=== PATIENT | female | born 1965 | race Caucasian/White ===

== ENCOUNTER 2016-11-16 16:12 | Emergency (ER) | payer MEDICAID ==
[2016-11-16] MEDS ORDERED: Sodium Chloride 0.9% 1,000 ML IV ONE (17:08)
[2016-11-16] MEDS ORDERED: HYDROmorphone 1 mg/mL 1mL Syr IVP STA ×2 (17:09→19:17)
--- NOTE | 2016-11-16 17:16 | ED Physician Chart ---
Chief Complaint/HPI - Patient Information Date Seen:: 11/16/16 Time Seen:: 17:00 Chief Complaint:: abdominal pain History of Present Illness:: The patient developed lower abdominal pain 2 days ago. She vomited twice last time at 1300 today. She had diarrhea 9 times last night. Patient has had more than 30 abdominal surgery including for multiple ovarian cyst, total abdominal hysterectomy, appendectomy, obstruction exploratory laparotomy, 2 surgeries for adhesions. Patient inverted her left ankle 2 days ago. She complains of pain of the lateral aspect of the left ankle. Allergies:: Allergies Allergy/AdvReac Type Severity Reaction Status Date / Time aspirin Allergy Verified 11/16/16 16:34 cephalexin [From Keflex] Allergy Verified 11/16/16 16:34 codeine Allergy Verified 11/16/16 16:34 ketorolac [From Toradol] Allergy Verified 11/16/16 16:34 Vitals:: Vital Signs - 8 hr 11/16/16 16:29 Temp 98.1 F HR 73 RR 16 BP 172/92 O2 Sat % 99 Historian:: Patient Review:: Nurse's Note Reviewed Review of Systems - Review of Systems General/Constitutional: No fever, No chills Skin: No skin lesions Head: No headache Eyes: No loss of vision ENT: No earache Neck: No neck pain Cardio Vascular: No chest pain, No palpitations Pulmonary: No SOB GI: Nausea, Vomiting, Diarrhea Musculoskeletal: Bone or joint pain Endocrine: No polyuria Psychiatric: No prior psych history Hematopoietic: No bruising Allergic/Immuno: No urticaria Neurological: No syncope, No focal symptoms Past Medical History - Past Medical History Past Medical History: HTN, Other (see history of present illness) Family History: Diabetes Melitus Social History: Non Smoker, No Alcohol, Other (patient quit smoking 2 years ago) Surgical History: other Psychiatricy History: None (see history of present illness) Medication: Reviewed Family Medical History - Family Member Father Hx Family Diabetes: Yes Physical Exam - Physical Examination General/Constitutional: Well-developed, well-nourished Other Gen/Cons comments:: Mild distress Head: Atraumatic Eyes: Lids, conjuctiva normal, PERRL Skin: Nl inspection, No rash, No skin lesions, No ecchymosis ENMT: External ears, nose nl, TM canals nl, Nasal exam nl, Lips, teeth, gums nl , Tonsils nl Other ENMT comments:: Full upper and lower dentures Neck: No nuchal rigidity Other Respiratory comments:: Tubular breath sounds and minimal end-inspiratory wheezing. Cardio Vascular: RRR, No murmur, gallop, rubs, NL S1 S2 GI: Normal BS's, No mass/bruits Other GI comments:: Lower abdominal and periumbilical rebound tenderness : No CVA tenderness Extremities: Normal digits & nails Other Extremities comments:: Left ankle: There is tenderness over the anterior and posterior talofibular ligaments and over the calcaneofibular ligament. There is a 1 cm abrasion over the lateral malleolus with minimal surrounding erythema. Neuro/Psych: No focal deficits Labs/Radiology/EKG Results - Lab Results Results: Laboratory Results - last 24 hr 11/16/16 11/16/16 11/16/16 17:17 17:17 17:17 WBC 8.8 RBC 4.07 Hgb 12.9 Hct 38.7 MCV 94.9 MCH 31.6 H MCHC Differential 33.3 RDW 12.1 Plt Count 227 MPV 8.2 Neutrophils % 66.6 Lymphocytes % 25.6 Monocytes % 6.4 Eosinophils % 1.0 Basophils % 0.4 Sodium 140 Potassium 3.2 L Chloride 108 H Carbon Dioxide 24.7 Anion Gap 10.5 BUN 7 Creatinine 0.8 Est GFR ( Amer) > 60.0 Est GFR (Non-Af Amer) > 60.0 BUN/Creatinine Ratio 8.8 Glucose 101 Calcium 9.7 Magnesium 1.8 L Lipase 42 Urine Source CLEAN C Urine Color YELLOW Urine Clarity CLEAR Urine pH 6.0 Ur Specific [place] 1.010 Urine Protein NEGATIVE Urine Glucose (UA) NEGATIVE Urine Ketones NEGATIVE Urine Blood SMALL H Urine Nitrate NEGATIVE Urine Bilirubin NEGATIVE Urine Urobilinogen 0.2 Ur Leukocyte Esterase NEGATIVE Urine RBC 2-5 Urine WBC NONE SEEN Ur Epithelial Cells NONE SEEN Urine Bacteria NONE SEEN - Radiology Results Results: CAT scan of abdomen and pelvis with IV contrast showed no acute disease. Assessment - Assessment General Assessment: At 1920 patient reported no improvement in her pain and she had lower abdominal tenderness. At [address] Sharp who felt the patient should be discharged with a prescription for about 10 [place]. ED Septic Shock - . Is Septic Shock (SBP<90, OR Lactate>4 mmol\L) present?: No - <6hrs of presentation: Vital Signs: Vital Signs - 8 hr 11/16/16 16:29 Temp 98.1 F HR 73 RR 16 BP 172/92 O2 Sat % 99 Reassessment (Disposition) - Reassessment Reassessment Condition:: Improved - Diagnosis Diagnosis:: Abdominal pain; history of multiple abdominal surgeries; hypokalemia - Aftercare/Follow up Instructions Aftercare/Follow-Up Instructions:: Refer to Discharge Instructions Medication Prescribed:: [place] 10/325 #10 to take 1 4 times a day as necessary for pain - Patient Disposition Discharge/Transfer:: Home Condition at Disposition:: Stable, Improved
[2016-11-16 17:26] LABS: % BASOPHILS 0.4 % (0.0-2.0); % LYMPHOCYTES 25.6 % (20.0-50.0); % MONOCYTES 6.4 % (2.0-10.0); % NEUTROPHILS 66.6 % (40.0-80.0); HEMATOCRIT 38.7 % (35.0-45.0); HEMOGLOBIN 12.9 gm/dL (11.7-15.5); MEAN CELL VOLUME 94.9 fl (81-100); MEAN CORPUSCULAR HEMOGLOBIN 31.6 pg (27.0-31.0); MEAN CORPUSCULAR HGB CONC 33.3 pg (28.0-36.0); MEAN PLATELET VOLUME 8.2 fl; NEUTROPHILE ABSOLUTE 5.8 Th/cmm (1.8-8.0); PLATELET COUNT 227 Th/cmm (150-400); RED BLOOD COUNT 4.07 Mil/cmm (3.80-5.10); RED CELL DISTRIBUTION WIDTH 12.1 % (11.5-20.0); WHITE BLOOD COUNT 8.8 Th/cmm (4.8-10.8)
[2016-11-16] MEDS ORDERED: HYDROmorphone 1 mg/mL 1mL Syr ONE ×2 (17:26→19:28)
[2016-11-16 17:43] LABS: ANION GAP 10.5 (7.0-16.0); BUN - UREA NITROGEN 7 mg/dL (7-25); BUN/CREATININE RATIO 8.8; CALCIUM SERUM 9.7 mg/dL (8.6-10.3); CARBON DIOXIDE 24.7 mEq/L (21.0-31.0); CHLORIDE 108 mEq/L (98-107); CREATININE - SERUM 0.8 mg/dL (0.6-1.2); GLUCOSE 101 mg/dL (70-105); LIPASE 42 U/L (11-82); MAGNESIUM 1.8 mg/dL (1.9-2.7); POTASSIUM SERUM 3.2 mEq/L (3.5-5.1); SODIUM SERUM 140 mEq/L (136-145)
[2016-11-16 17:44] LABS: URINE BILIRUBIN NEGATIVE (NEGATIVE); URINE BLOOD SMALL (NEGATIVE); URINE COLOR YELLOW; URINE GLUCOSE (UA) NEGATIVE (NEGATIVE); URINE KETONE NEGATIVE (NEGATIVE); URINE PROTEIN NEGATIVE (NEGATIVE); URINE UROBILINOGEN 0.2 E.U./dL (0.2 - 1.0)
[2016-11-16 17:45] LABS: URINE BACTERIA NONE SEEN /hpf (NONE SEEN); URINE EPITHELIAL CELLS NONE SEEN /lpf (FEW); URINE WBC NONE SEEN /hpf (0-5)
[2016-11-16] MEDS ORDERED: Potassium Chloride Elixir 20 mEq /15 mL UDC GT ONE (19:29)
--- NOTE | 2016-11-17 09:25 | Diagnostic Imaging Report ---
CT scan of the abdomen and pelvis with intravenous contrast History: Pain Total DLP equals 292 CTDI equals 6.6 Following administration of intravenous contrast, axial sections were obtained from the xiphoid process down to the pubic symphysis. Exam of the liver demonstrates a normal size and contour. No focal lesions are seen. The spleen appears normal. No abnormalities are seen in the region of the pancreas. The kidneys appear normal bilaterally. No focal lesions or hydronephrosis. The exam of the pelvis demonstrates preservation of normal fat planes. No abnormal soft tissue masses or abnormal fluid collections. There is metallic density noted in the right pelvis along surgical clips seen in the left pelvis. Impression: 1. No definite acute abnormalities 2. Surgical changes
--- NOTE | 2016-11-17 09:31 | Diagnostic Imaging Report ---
Left ankle (4 views) HISTORY: Pain, trauma No acute bony abnormalities are seen. No fractures identified at this time. Joint spaces are normal. IMPRESSION: No acute bony abnormalities
== END 2016-11-16 20:20 | disposition home or self-care (01) ==
LOC: ER 16:12
DX: R10.30 Lower abdominal pain, unspecified (principal); E87.6 Hypokalemia; I10 Essential (primary) hypertension; Z88.6 Allergy status to analgesic agent; Z88.5 Allergy status to narcotic agent; Z88.8 Allergy status to other drugs, medicaments and biological substances; Z98.890 Other specified postprocedural states; Z90.710 Acquired absence of both cervix and uterus
CPT/HCPCS: 99285; 96374; 96375; 96376; 73610; 74177; 36415; 85025; 81001; 83690; 83735; 80048; J2405; J1170; J7030

== ENCOUNTER 2016-11-18 16:34 | Emergency (ER) | payer MEDICAID ==
--- NOTE | 2016-11-18 17:03 | ED Physician Chart ---
Chief Complaint/HPI - Patient Information Date Seen:: 11/18/16 Time Seen:: 17:01 Chief Complaint:: ABDOMINAL PAIN, CHRONIC History of Present Illness:: This 51-year-old female returns to the emergency department complaining of worsening of her abdominal pain. The pain is diffuse throughout the abdomen and and is nonradiating. She was seen here November 16 and at that time an extensive workup was negative. She had a normal white count with no anemia. Liver and renal function studies were all within normal parameters. Patient had mild hyponatremia which was not clinically significant. A CT scan with IV contrast was done of both the abdomen and pelvis with no significant abnormalities found. Patient was discharged with a prescription for [place] 10/ 325 #10 to be taken for abdominal pain. Patient states that her father doesn't approve of narcotic pain medicines and he tore up the prescription. Patient had nausea this a.m. with 3 episodes of emesis. She's had no episodes of diarrhea. The pain is a 10 over 10 in severity and is made worse by touching and eating. The patient is not helped by taking ibuprofen or Tylenol. Allergies:: Allergies Allergy/AdvReac Type Severity Reaction Status Date / Time aspirin Allergy Verified 11/16/16 16:34 cephalexin [From Keflex] Allergy Verified 11/16/16 16:34 codeine Allergy Verified 11/16/16 16:34 ketorolac [From Toradol] Allergy Verified 11/16/16 16:34 Vitals:: Vital Signs - 8 hr 11/18/16 16:44 Temp 98.7 F HR 90 RR 16 BP 125/97 O2 Sat % 97 Review of Systems - Review of Systems General/Constitutional: No fever, No chills, Weakness, No diaphoresis, No edema Skin: No skin lesions, No rash Head: No headache, Light headed Eyes: No loss of vision, No diplopia ENT: No earache, No sore throat, Other (patient has both upper and lower dental plates.) Neck: No neck pain, No stiffness, No mass noted GI: Nausea, Vomiting, No diarrhea, Pain, Other (no hematemesis or melena.) G/U: No dysuria, No frequency, No hematuria Detasseler: No abnormal vaginal bleed Musculoskeletal: No bone or joint pain, No back pain Hematopoietic: No bruising, No lymphadenopathy Allergic/Immuno: No urticaria, No angioedema Neurological: No syncope, No headache, No seizure, No confusion, No vertigo Past Medical History - Past Medical History Past Medical History: Other (patient claims to have had over 30 surgical events within the abdomen. She is status post hysterectomy which initially was just the uterus. Subsequently the patient had ovarian cysts in both ovaries have been removed.) Social History: Non Smoker, No Alcohol, Employment:: Patient denies illicit drug abuse or addiction. Surgical History: Hysterectomy Psychiatricy History: Depression Family Medical History - Family Member Father Hx Family Cancer: No Hx Family Congestive Heart Failure: No Hx Family Hypertension: No Hx Family Stroke: No Hx Family Diabetes: Yes Hx Family AIDS: No Hx Family HIV: No Hx Family Hepatitis: No Physical Exam - Physical Examination General/Constitutional: Awake, Well-developed, well-nourished, Alert, Non-toxic appearing, Ambulatory Other Gen/Cons comments:: Claims to be in severe distress from her abdominal pain. Head: Atraumatic Eyes: Lids, conjuctiva normal, PERRL, EOMI Other Eyes comments:: Sclerae are nonjaundiced and the patient has no nystagmus. Skin: Nl inspection, No rash, No skin lesions, No ecchymosis, No lymphadenopathy ENMT: External ears, nose nl, Nasal exam nl, Oropharynx nl, Tonsils nl Other ENMT comments:: The patient is edentulous with both upper and lower dental plates. There is adequate hydration of the oral mucosa. Neck: Nontender, No JVD, No nuchal rigidity, No mass Respiratory: Nl effort/Exclusion, No Wheeze/Rhonchi/Rales Cardio Vascular: RRR, No murmur, gallop, rubs, NL S1 S2 Other Cardio Vascular comments:: Adequate pulses in all 4 extremities. GI: No organomegaly, No hernia, No mass/bruits Other GI comments:: The patient's abdomen is not distended. She has well-healed surgical scars none of which are recent. Bowel sounds were normal. The patient is exquisitely tender to light touch in all 4 quadrants of the abdomen. No voluntary guarding with positive rebound to percussion. Liver and spleen were nonpalpable. No abdominal masses noted. Rectal exam was deferred at my discretion. Extremities: No tenderness or effusion, Full ROM, normal strength in all extremities, No edema Neuro/Psych: Alert/oriented, Normal sensory exam, Normal motor strength Other Neuro/Psych comments:: Not ambulated. Misc: Normal back Labs/Radiology/EKG Results - Lab Results Results: No laboratory or radiographic studies were ordered because the patient had a complete set of laboratory and a complete CT scan of the abdomen and pelvis 2 days ago. Assessment - Assessment General Assessment: CASE SUMMARY: This 51-year-old female returns to the emergency department for severe abdominal pain which is chronic and caused by adhesions from multiple prior surgeries. It is suspicious that the patient states her father tore up her prescription for [place]. The patient was treated with 2 mg of Dilaudid IM. Patient will be picked up by her and follow up with Dr. Rdz her primary care physician this coming week. I did not refill her prescription for additional narcotic pain medications because I'm suspicious of drug-seeking behavior. ED Septic Shock - . Is Septic Shock (SBP<90, OR Lactate>4 mmol\L) present?: No - <6hrs of presentation: Vital Signs: Vital Signs - 8 hr 11/18/16 16:44 Temp 98.7 F HR 90 RR 16 BP 125/97 O2 Sat % 97 Reassessment (Disposition) - Reassessment Reassessment Condition:: Improved - Diagnosis Diagnosis:: CHRONIC ABDOMINAL PAIN - Aftercare/Follow up Instructions Aftercare/Follow-Up Instructions:: Counseled pt regarding lab results/diagnosis & need follow up - Patient Disposition Discharge/Transfer:: Home ED Discharge Plan - Patient Disposition Admit/Discharge/Transfer: PT DISCHARGED HOME Condition at Disposition: Improved Instructions: Abdominal Pain, [id number] Additional Instructions: FOLLOW UP WITH YOUR REGULAR DOCTOR IN THE NEXT 1-2 DAYS IF NOT FEELING ANY BETTER. FILL YOUR REGULAR PRESCRIPTIONS BY YOUR REGULAR PCP.
[2016-11-18] MEDS ORDERED: Morphine Sulfate 4 mg/mL 1mL Syr IVP ONE (17:45)
[2016-11-18] MEDS ORDERED: HYDROmorphone 2 mg/mL 1mL Vial IM STA (17:48)
[2016-11-18] MEDS ORDERED: HYDROmorphone 2 mg/mL 1mL Vial ONE (17:51)
== END 2016-11-18 19:33 | disposition home or self-care (01) ==
LOC: ER 16:34
DX: G89.29 Other chronic pain (principal); R10.9 Unspecified abdominal pain; Z90.710 Acquired absence of both cervix and uterus; Z88.6 Allergy status to analgesic agent; Z88.5 Allergy status to narcotic agent; Z88.8 Allergy status to other drugs, medicaments and biological substances
CPT/HCPCS: 99284; 96372 ×2; Q0162; J1170; J1200; Z7502

== ENCOUNTER 2017-01-11 21:52 | Inpatient (IN) | payer MEDICAID ==
--- NOTE | 2017-01-11 22:13 | ED Physician Chart ---
ED Chief Complaint/HPI - Patient Information Date Seen:: 01/11/17 Time Seen:: 22:00 Chief Complaint:: abdominal pain History of Present Illness:: Patient has had suprapubic pain for the last 1 week. She had diarrhea more than 10 times last night and vomited 3 times. Patient's temperature was 102.8 last night. Allergies:: Allergies Allergy/AdvReac Type Severity Reaction Status Date / Time aspirin Allergy Verified 11/16/16 16:34 cephalexin [From Keflex] Allergy Verified 11/16/16 16:34 codeine Allergy Verified 11/16/16 16:34 ketorolac [From Toradol] Allergy Verified 11/16/16 16:34 Historian:: Patient Review:: Nurse's Note Reviewed ED Review of Systems - Review of Systems General/Constitutional: Fever, Chills Skin: No skin lesions Head: No headache Eyes: No loss of vision ENT: No earache Neck: No neck pain Cardio Vascular: No chest pain Pulmonary: No SOB, No cough GI: Nausea, Vomiting, Diarrhea G/U: No dysuria Musculoskeletal: No bone or joint pain Endocrine: No polyuria Psychiatric: No prior psych history Hematopoietic: No bruising, No lymphadenopathy Allergic/Immuno: No urticaria Neurological: No syncope ED Past Medical History - Past Medical History Past Medical History: HTN Family History: Diabetes Melitus Social History: Non Smoker, No Alcohol, Other (patient quit smoking 2-1/2 years ago) Surgical History: Appendectomy, Hysterectomy, other (ovarian cysts) Psychiatricy History: None Medication: Reviewed Family Medical History - Family Member Father Hx Family Cancer: No Hx Family Congestive Heart Failure: No Hx Family Hypertension: No Hx Family Stroke: No Hx Family Diabetes: Yes Hx Family AIDS: No Hx Family HIV: No Hx Family Hepatitis: No ED Physical Exam - Physical Examination General/Constitutional: Well-developed, well-nourished, Alert, No distress Head: Atraumatic Eyes: Lids, conjuctiva normal, PERRL Skin: Nl inspection, No rash, No skin lesions, No ecchymosis ENMT: External ears, nose nl, TM canals nl, Nasal exam nl Other ENMT comments:: Full upper and lower dentures Neck: No nuchal rigidity Respiratory: Nl effort/Exclusion, Clear to Auscultation, No Wheeze/Rhonchi/Rales Cardio Vascular: RRR, No murmur, gallop, rubs GI: No organomegaly, No hernia, Normal BS's, Nondistended, No mass/bruits Other GI comments:: Diffuse tenderness with rebound : No CVA tenderness Extremities: Normal digits & nails Neuro/Psych: Alert/oriented Misc: Normal back ED Labs/Radiology/EKG Results - Lab Results Results: Laboratory Results - last 24 hr 01/11/17 01/11/17 01/11/17 22:05 22:23 22:23 WBC 7.7 RBC 3.94 Hgb 12.5 Hct 36.5 L MCV 92.6 MCH 31.6 H MCHC Differential 34.1 RDW 11.6 Plt Count 318 D MPV 7.6 Neutrophils % 64.3 Lymphocytes % 28.7 Monocytes % 5.5 Eosinophils % 1.3 Basophils % 0.2 Sodium 136 Potassium 3.2 L Chloride 103 Carbon Dioxide 23.9 Anion Gap 12.3 BUN 7 Creatinine 0.7 Est GFR ( Amer) > 60.0 Est GFR (Non-Af Amer) > 60.0 BUN/Creatinine Ratio 10.0 Glucose 94 Calcium 9.7 Total Bilirubin Direct Bilirubin AST ALT Alkaline Phosphatase Total Protein Albumin Globulin Albumin/Globulin Ratio Lipase 45 Urine Source CLEAN C Urine Color YELLOW Urine Clarity SLIGHT CLOUDY Urine pH 6.0 Ur Specific [place] 1.020 Urine Protein NEGATIVE Urine Glucose (UA) NEGATIVE Urine Ketones NEGATIVE Urine Blood SMALL H Urine Nitrate NEGATIVE Urine Bilirubin NEGATIVE Urine Urobilinogen 0.2 Ur Leukocyte Esterase TRACE H Urine RBC 2-5 Urine WBC 2-5 Ur Epithelial Cells MODERATE Urine Bacteria FEW Urine Mucus MODERATE 01/11/17 22:53 WBC RBC Hgb Hct MCV MCH MCHC Differential RDW Plt Count MPV Neutrophils % Lymphocytes % Monocytes % Eosinophils % Basophils % Sodium Potassium Chloride Carbon Dioxide Anion Gap BUN Creatinine Est GFR ( Amer) Est GFR (Non-Af Amer) BUN/Creatinine Ratio Glucose Calcium Total Bilirubin 0.4 Direct Bilirubin 0.05 AST 12 L ALT 9 Alkaline Phosphatase 80 Total Protein 7.3 Albumin 4.2 Globulin 3.1 Albumin/Globulin Ratio 1.4 Lipase Urine Source Urine Color Urine Clarity Urine pH Ur Specific [place] Urine Protein Urine Glucose (UA) Urine Ketones Urine Blood Urine Nitrate Urine Bilirubin Urine Urobilinogen Ur Leukocyte Esterase Urine RBC Urine WBC Ur Epithelial Cells Urine Bacteria Urine Mucus - Radiology Results Results: CT abdomen and pelvis: Dilated gallbladder with possible stone in the common bile duct. Abdominal ultrasound: 6 mm stone in CBD. ED Septic Shock - . Is Septic Shock (SBP<90, OR Lactate>4 mmol\L) present?: No ED Reassessment (Disposition) - Reassessment Reassessment Condition:: Unchanged - Diagnosis Diagnosis:: common bile duct stone - Patient Disposition Admitted to:: Med/Surg Spoke to:: Xuan Pinon Admitting Medical Physician:: Xuan Pinon ED Discharge Plan - Patient Disposition Admit/Discharge/Transfer: Acute Care w/in this hosp
[2017-01-11] MEDS ORDERED: Sodium Chloride 0.9% 1,000 ML IV ONE (22:16)
[2017-01-11] MEDS ORDERED: HYDROmorphone 1 mg/mL 1mL Syr IVP STA ×2 (22:17→23:42)
[2017-01-11] MEDS ORDERED: HYDROmorphone 1 mg/mL 1mL Syr ONE ×2 (22:25→23:41)
[2017-01-11 22:31] LABS: URINE BILIRUBIN NEGATIVE (NEGATIVE); URINE BLOOD SMALL (NEGATIVE); URINE GLUCOSE (UA) NEGATIVE (NEGATIVE); URINE KETONE NEGATIVE (NEGATIVE); URINE PROTEIN NEGATIVE (NEGATIVE); URINE UROBILINOGEN 0.2 E.U./dL (0.2 - 1.0)
[2017-01-11 22:31] LABS: % BASOPHILS 0.2 % (0.0-2.0); % EOSINOPHILS 1.3 % (0.0-5.0); % LYMPHOCYTES 28.7 % (20.0-50.0); % MONOCYTES 5.5 % (2.0-10.0); % NEUTROPHILS 64.3 % (40.0-80.0); HEMATOCRIT 36.5 % (41.0-60); HEMOGLOBIN 12.5 gm/dL (12-16); MEAN CELL VOLUME 92.6 fl (81-100); MEAN CORPUSCULAR HEMOGLOBIN 31.6 pg (27.0-31.0); MEAN CORPUSCULAR HGB CONC 34.1 pg (28.0-36.0); MEAN PLATELET VOLUME 7.6 fl; RED BLOOD COUNT 3.94 Mil/cmm (3.80-5.10); RED CELL DISTRIBUTION WIDTH 11.6 % (11.5-20.0); WHITE BLOOD COUNT 7.7 Th/cmm (4.8-10.8)
[2017-01-11 22:34] LABS: PLATELET COUNT 318 Th/cmm (150-400)
[2017-01-11 22:39] LABS: URINE BACTERIA FEW /hpf (NONE SEEN); URINE COLOR YELLOW; URINE EPITHELIAL CELLS MODERATE /lpf (FEW)
[2017-01-11 22:46] LABS: ANION GAP 12.3 (7.0-16.0); BUN - UREA NITROGEN 7 mg/dL (7-25); CALCIUM SERUM 9.7 mg/dL (8.6-10.3); CARBON DIOXIDE 23.9 mEq/L (21.0-31.0); CHLORIDE 103 mEq/L (98-107); CREATININE - SERUM 0.7 mg/dL (0.6-1.2); GLUCOSE 94 mg/dL (70-105); LIPASE 45 U/L (11-82); POTASSIUM SERUM 3.2 mEq/L (3.5-5.1); SODIUM SERUM 136 mEq/L (136-145)
[2017-01-11 23:23] LABS: ALB/GLOB RATIO 1.4 (1.0-1.8); BILIRUBIN,TOTAL 0.4 mg/dL (0.3-1.0)
[2017-01-11 23:24] LABS: BILIRUBIN,DIRECT 0.05 mg/dL (0.0-0.2)
[2017-01-12] MEDS ORDERED: Ciprofloxacin 200mg Premix PB 200 MG/100 ML BAG IV ONE (02:50)
[2017-01-12] MEDS: HYDROmorphone 1 mg/mL 1mL Syr IVP PRN ×5 (02:55→21:45)
[2017-01-12] MEDS: D5-0.45NS 1,000 ML IV SCH ×2 (03:05→21:48)
[2017-01-12] MEDS: Ciprofloxacin 200mg Premix PB 200 MG/100 ML BAG IV SCH ×2 (03:06→17:08)
[2017-01-12 04:55] VITALS: BP 141/78
[2017-01-12 06:38] LABS: % BASOPHILS 0.1 % (0.0-2.0); % EOSINOPHILS 2.4 % (0.0-5.0); % LYMPHOCYTES 39.4 % (20.0-50.0); % MONOCYTES 8.2 % (2.0-10.0); % NEUTROPHILS 49.9 % (40.0-80.0); HEMOGLOBIN 11.1 gm/dL (12-16); MEAN CELL VOLUME 93.7 fl (81-100); MEAN CORPUSCULAR HEMOGLOBIN 31.7 pg (27.0-31.0); MEAN CORPUSCULAR HGB CONC 33.8 pg (28.0-36.0); MEAN PLATELET VOLUME 7.6 fl; NEUTROPHILE ABSOLUTE 3.2 Th/cmm (1.8-8.0); PLATELET COUNT 301 Th/cmm (150-400); RED CELL DISTRIBUTION WIDTH 11.5 % (11.5-20.0); WHITE BLOOD COUNT 6.5 Th/cmm (4.8-10.8)
[2017-01-12 06:58] LABS: INR 1.08 (0.5-1.4); PROTHROMBIN TIME (TEST) 11.2 SECONDS (9.5-11.5)
[2017-01-12 06:59] LABS: BUN - UREA NITROGEN 6 mg/dL (7-25); BUN/CREATININE RATIO 8.6; CARBON DIOXIDE 26.6 mEq/L (21.0-31.0); CHLORIDE 108 mEq/L (98-107); CREATININE - SERUM 0.7 mg/dL (0.6-1.2); GLUCOSE 89 mg/dL (70-105); POTASSIUM SERUM 3.6 mEq/L (3.5-5.1); SODIUM SERUM 139 mEq/L (136-145)
--- NOTE | 2017-01-12 08:24 | Diagnostic Imaging Report ---
Ultrasound abdomen HISTORY: Abdominal pain COMPARISON: CT abdomen and pelvis performed the same day Technique: Sonography of the abdomen was performed in multiple planes. FINDINGS: The liver demonstrates normal echogenicity with no evidence of focal lesions. The liver measures 14 cm. The gallbladder is distended. There may be a stone within the common bile duct measuring 5 mm. No evidence of gallbladder wall thickening. The common bile duct measures 6 mm. Evaluation of the pancreas is limited due to bowel gas. The right kidney measures 9.9 cm. No evidence of focal lesions or hydronephrosis. The left kidney measures 10 cm No evidence of focal lesions or hydronephrosis. The spleen measures 8.6 cm. IMPRESSION: Distended gallbladder. There is suggestion of a stone within the common bile duct. The common bile duct size at the upper limits of normal measuring 6 mm. Please correlate with the findings. Consider further assessment with MRCP or nuclear medicine HIDA scan.
--- NOTE | 2017-01-12 08:38 | General Progress Note ---
Subjective - Review of Systems Service Date: 01/12/17 Events since last encounter: slow HR in 30s taking 3 heart meds await cardiology eval Objective - Results Result Diagrams: 01/12/17 06:20 01/12/17 06:20 Recent Labs: Laboratory Last Values WBC 6.5 Th/cmm (4.8-10.8) 01/12/17 06:20 RBC 3.50 Mil/cmm (3.80-5.10) L 01/12/17 06:20 Hgb 11.1 gm/dL (12-16) L 01/12/17 06:20 Hct 33.0 % (41.0-60) L 01/12/17 06:20 MCV 93.7 fl (81-100) 01/12/17 06:20 MCH 31.7 pg (27.0-31.0) H 01/12/17 06:20 MCHC Differential 33.8 pg (28.0-36.0) 01/12/17 06:20 RDW 11.5 % (11.5-20.0) 01/12/17 06:20 Plt Count 301 Th/cmm (150-400) 01/12/17 06:20 MPV 7.6 fl 01/12/17 06:20 Neutrophils % 49.9 % (40.0-80.0) 01/12/17 06:20 Lymphocytes % 39.4 % (20.0-50.0) 01/12/17 06:20 Monocytes % 8.2 % (2.0-10.0) 01/12/17 06:20 Eosinophils % 2.4 % (0.0-5.0) 01/12/17 06:20 Basophils % 0.1 % (0.0-2.0) 01/12/17 06:20 PT 11.2 SECONDS (9.5-11.5) 01/12/17 06:20 INR 1.08 (0.5-1.4) 01/12/17 06:20 PTT (Actin FS) 23.3 SECONDS (26.0-38.0) L 01/12/17 06:20 Sodium 139 mEq/L (136-145) 01/12/17 06:20 Potassium 3.6 mEq/L (3.5-5.1) 01/12/17 06:20 Chloride 108 mEq/L (98-107) H 01/12/17 06:20 Carbon Dioxide 26.6 mEq/L (21.0-31.0) 01/12/17 06:20 Anion Gap 8.0 (7.0-16.0) 01/12/17 06:20 BUN 6 mg/dL (7-25) L 01/12/17 06:20 Creatinine 0.7 mg/dL (0.6-1.2) 01/12/17 06:20 Est GFR ( Amer) > 60.0 ml/min (>90) 01/12/17 06:20 Est GFR (Non-Af Amer) > 60.0 ml/min 01/12/17 06:20 BUN/Creatinine Ratio 8.6 01/12/17 06:20 Glucose 89 mg/dL (70-105) 01/12/17 06:20 Calcium 9.0 mg/dL (8.6-10.3) 01/12/17 06:20 Total Bilirubin 0.4 mg/dL (0.3-1.0) 01/11/17 22:53 Direct Bilirubin 0.05 mg/dL (0.0-0.2) 01/11/17 22:53 AST 12 U/L (13-39) L 01/11/17 22:53 ALT 9 U/L (7-52) 01/11/17 22:53 Alkaline Phosphatase 80 U/L (34-104) 01/11/17 22:53 Total Protein 7.3 gm/dL (6.0-8.3) 01/11/17 22:53 Albumin 4.2 gm/dL (3.7-5.3) 01/11/17 22:53 Globulin 3.1 gm/dL 01/11/17 22:53 Albumin/Globulin Ratio 1.4 (1.0-1.8) 01/11/17 22:53 Lipase 12 U/L (11-82) 01/12/17 06:20 Urine Source CLEAN C 01/11/17 22:05 Urine Color YELLOW 01/11/17 22:05 Urine Clarity SLIGHT CLOUDY (CLEAR) 01/11/17 22:05 Urine pH 6.0 (4.6 - 8.0) 01/11/17 22:05 Ur Specific [place] 1.020 (1.005-1.030) 01/11/17 22:05 Urine Protein NEGATIVE mg/dL (NEGATIVE) 01/11/17 22:05 Urine Glucose (UA) NEGATIVE mg/dL (NEGATIVE) 01/11/17 22:05 Urine Ketones NEGATIVE mg/dL (NEGATIVE) 01/11/17 22:05 Urine Blood SMALL (NEGATIVE) H 01/11/17 22:05 Urine Nitrate NEGATIVE (NEGATIVE) 01/11/17 22:05 Urine Bilirubin NEGATIVE (NEGATIVE) 01/11/17 22:05 Urine Urobilinogen 0.2 E.U./dL (0.2 - 1.0) 01/11/17 22:05 Ur Leukocyte Esterase TRACE (NEGATIVE) H 01/11/17 22:05 Urine RBC 2-5 /hpf (0-5) 01/11/17 22:05 Urine WBC 2-5 /hpf (0-5) 01/11/17 22:05 Ur Epithelial Cells MODERATE /lpf (FEW) 01/11/17 22:05 Urine Bacteria FEW /hpf (NONE SEEN) 01/11/17 22:05 Urine Mucus MODERATE /lpf (FEW) 01/11/17 22:05 - Physical Exam Vitals and I&O: Vital Signs Temp 98.7 F 01/12/17 08:00 Pulse 67 01/12/17 08:21 Resp 17 01/12/17 08:00 BP 124/69 01/12/17 08:21 Pulse Ox 95 01/12/17 08:00 Intake & Output 01/11/17 01/12/17 01/12/17 18:59 06:59 18:59 Intake Total 100 Balance 100 Weight (lbs) 49.079 kg Intake: Intake, IV Amount 100 Ciprofloxacin 200mg 100 Premix PB 200 mg In 100 ml @ 100 mls/hr IV Q12H [facility] Rx#:[id number] Other: # Voids 1 # Bowel Movements 0 Active Medications: Current Medications Hydromorphone HCl (Dilaudid) 1 mg IVP Q3HR PRN PRN Reason: Pain (Severe) Stop: 03/13/17 02:09 Last Admin: 01/12/17 05:59 Dose: 1 mg Ciprofloxacin (Cipro 200mg Premix Pb) 200 mg in 100 mls @ 100 mls/hr IV Q12H [facility] Stop: 03/13/17 02:59 Last Infusion: 01/12/17 04:05 Dose: Infused Dextrose/Sodium Chloride (D5-0.45ns) 1,000 mls @ 75 mls/hr IV .[id number] [facility] Stop: 03/13/17 02:29 Last Admin: 01/12/17 03:05 Dose: 75 mls/hr Metoprolol Tartrate (Lopressor) 50 mg PO DAILY [facility] Stop: 03/13/17 08:59 Last Admin: 01/12/17 08:21 Dose: Not Given Ondansetron HCl (Zofran) 4 mg IV Q4HR PRN PRN Reason: Nausea / Vomiting Stop: 03/13/17 02:11 Last Admin: 01/12/17 03:13 Dose: 4 mg
--- NOTE | 2017-01-12 08:41 | Diagnostic Imaging Report ---
CT abdomen and pelvis without intravenous contrast Indication: Abdominal pain Comparison: CT abdomen and pelvis on 11/16/2016 and ultrasound of the abdomen on 01/11/2017, Technique: Axial images were obtained from the lung bases to the bilateral proximal femurs without IV contrast. Coronal reconstructions were made. total DLP: 308, CTDI8.8 FINDINGS: Hypoventilatory and atelectatic changes of the lung bases are seen with minimal consolidative changes of the lung bases. Assessment of the solid organs is limited due to lack of IV contrast. No evidence of focal hepatic lesions. The gallbladder is mildly distended. There is a 8 mm stone in the region of the distal common bile duct. The common bile duct measures up to 7 mm. No focal splenic lesions identified. No discrete focal pancreatic lesions identified. No focal adrenal lesions identified. There is fullness of the bilateral renal collecting systems without evidence of shaji hydronephrosis. No evidence of renal stones. There is a 2 cm linear radiodensity within the right lower quadrant which may represent ingested material within the cecum. Additional surgical clips are also seen within the pelvis. The appendix is not well-visualized. No evidence of free air or free fluid. Moderate atherosclerosis is noted. Mild degenerative changes of the spine are noted. IMPRESSION: Findings suggestive of a 8 mm stone within the distal common bile duct. Please also refer to today's ultrasound for further details. ERCP or MRCP follow-up may also be obtained. Mildly distended gallbladder. Nonspecific fullness of bilateral renal collecting systems without evidence of shaji hydronephrosis. Postsurgical changes of the pelvis. Nonspecific linear radiodensity measuring 2 cm in the region of the cecum. Correlation should be made with patient's clinical findings and possible recent ingestion of a foreign body. No evidence of free fluid or free air. Bibasal atelectatic and consolidative changes. Moderate atherosclerosis.
--- NOTE | 2017-01-12 09:03 | General Progress Note ---
Subjective - Review of Systems Service Date: 01/12/17 Events since last encounter: discussed with Drs. Pinon and Mono dispensal with MRCP and proceed with ERCP at [place] Objective - Results Result Diagrams: 01/12/17 06:20 01/12/17 06:20 Recent Labs: Laboratory Last Values WBC 6.5 Th/cmm (4.8-10.8) 01/12/17 06:20 RBC 3.50 Mil/cmm (3.80-5.10) L 01/12/17 06:20 Hgb 11.1 gm/dL (12-16) L 01/12/17 06:20 Hct 33.0 % (41.0-60) L 01/12/17 06:20 MCV 93.7 fl (81-100) 01/12/17 06:20 MCH 31.7 pg (27.0-31.0) H 01/12/17 06:20 MCHC Differential 33.8 pg (28.0-36.0) 01/12/17 06:20 RDW 11.5 % (11.5-20.0) 01/12/17 06:20 Plt Count 301 Th/cmm (150-400) 01/12/17 06:20 MPV 7.6 fl 01/12/17 06:20 Neutrophils % 49.9 % (40.0-80.0) 01/12/17 06:20 Lymphocytes % 39.4 % (20.0-50.0) 01/12/17 06:20 Monocytes % 8.2 % (2.0-10.0) 01/12/17 06:20 Eosinophils % 2.4 % (0.0-5.0) 01/12/17 06:20 Basophils % 0.1 % (0.0-2.0) 01/12/17 06:20 PT 11.2 SECONDS (9.5-11.5) 01/12/17 06:20 INR 1.08 (0.5-1.4) 01/12/17 06:20 PTT (Actin FS) 23.3 SECONDS (26.0-38.0) L 01/12/17 06:20 Sodium 139 mEq/L (136-145) 01/12/17 06:20 Potassium 3.6 mEq/L (3.5-5.1) 01/12/17 06:20 Chloride 108 mEq/L (98-107) H 01/12/17 06:20 Carbon Dioxide 26.6 mEq/L (21.0-31.0) 01/12/17 06:20 Anion Gap 8.0 (7.0-16.0) 01/12/17 06:20 BUN 6 mg/dL (7-25) L 01/12/17 06:20 Creatinine 0.7 mg/dL (0.6-1.2) 01/12/17 06:20 Est GFR ( Amer) > 60.0 ml/min (>90) 01/12/17 06:20 Est GFR (Non-Af Amer) > 60.0 ml/min 01/12/17 06:20 BUN/Creatinine Ratio 8.6 01/12/17 06:20 Glucose 89 mg/dL (70-105) 01/12/17 06:20 Calcium 9.0 mg/dL (8.6-10.3) 01/12/17 06:20 Total Bilirubin 0.4 mg/dL (0.3-1.0) 01/11/17 22:53 Direct Bilirubin 0.05 mg/dL (0.0-0.2) 01/11/17 22:53 AST 12 U/L (13-39) L 01/11/17 22:53 ALT 9 U/L (7-52) 01/11/17 22:53 Alkaline Phosphatase 80 U/L (34-104) 01/11/17 22:53 Total Protein 7.3 gm/dL (6.0-8.3) 01/11/17 22:53 Albumin 4.2 gm/dL (3.7-5.3) 01/11/17 22:53 Globulin 3.1 gm/dL 01/11/17 22:53 Albumin/Globulin Ratio 1.4 (1.0-1.8) 01/11/17 22:53 Lipase 12 U/L (11-82) 01/12/17 06:20 Urine Source CLEAN C 01/11/17 22:05 Urine Color YELLOW 01/11/17 22:05 Urine Clarity SLIGHT CLOUDY (CLEAR) 01/11/17 22:05 Urine pH 6.0 (4.6 - 8.0) 01/11/17 22:05 Ur Specific [place] 1.020 (1.005-1.030) 01/11/17 22:05 Urine Protein NEGATIVE mg/dL (NEGATIVE) 01/11/17 22:05 Urine Glucose (UA) NEGATIVE mg/dL (NEGATIVE) 01/11/17 22:05 Urine Ketones NEGATIVE mg/dL (NEGATIVE) 01/11/17 22:05 Urine Blood SMALL (NEGATIVE) H 01/11/17 22:05 Urine Nitrate NEGATIVE (NEGATIVE) 01/11/17 22:05 Urine Bilirubin NEGATIVE (NEGATIVE) 01/11/17 22:05 Urine Urobilinogen 0.2 E.U./dL (0.2 - 1.0) 01/11/17 22:05 Ur Leukocyte Esterase TRACE (NEGATIVE) H 01/11/17 22:05 Urine RBC 2-5 /hpf (0-5) 01/11/17 22:05 Urine WBC 2-5 /hpf (0-5) 01/11/17 22:05 Ur Epithelial Cells MODERATE /lpf (FEW) 01/11/17 22:05 Urine Bacteria FEW /hpf (NONE SEEN) 01/11/17 22:05 Urine Mucus MODERATE /lpf (FEW) 01/11/17 22:05 - Physical Exam Vitals and I&O: Vital Signs Temp 98.7 F 01/12/17 08:00 Pulse 67 01/12/17 08:21 Resp 17 01/12/17 08:00 BP 124/69 01/12/17 08:21 Pulse Ox 95 01/12/17 08:00 Intake & Output 01/11/17 01/12/17 01/12/17 18:59 06:59 18:59 Intake Total 100 Balance 100 Weight (lbs) 49.079 kg Intake: Intake, IV Amount 100 Ciprofloxacin 200mg 100 Premix PB 200 mg In 100 ml @ 100 mls/hr IV Q12H [facility] Rx#:[id number] Other: # Voids 1 # Bowel Movements 0 Active Medications: Current Medications Hydromorphone HCl (Dilaudid) 1 mg IVP Q3HR PRN PRN Reason: Pain (Severe) Stop: 03/13/17 02:09 Last Admin: 01/12/17 05:59 Dose: 1 mg Ciprofloxacin (Cipro 200mg Premix Pb) 200 mg in 100 mls @ 100 mls/hr IV Q12H [facility] Stop: 03/13/17 02:59 Last Infusion: 01/12/17 04:05 Dose: Infused Dextrose/Sodium Chloride (D5-0.45ns) 1,000 mls @ 75 mls/hr IV .[id number] [facility] Stop: 03/13/17 02:29 Last Admin: 01/12/17 03:05 Dose: 75 mls/hr Metoprolol Tartrate (Lopressor) 50 mg PO DAILY [facility] Stop: 03/13/17 08:59 Last Admin: 01/12/17 08:21 Dose: Not Given Ondansetron HCl (Zofran) 4 mg IV Q4HR PRN PRN Reason: Nausea / Vomiting Stop: 03/13/17 02:11 Last Admin: 01/12/17 03:13 Dose: 4 mg
--- NOTE | 2017-01-12 09:09 | General Progress Note ---
Objective - Results Result Diagrams: 01/12/17 06:20 01/12/17 06:20 Recent Labs: Laboratory Last Values WBC 6.5 Th/cmm (4.8-10.8) 01/12/17 06:20 RBC 3.50 Mil/cmm (3.80-5.10) L 01/12/17 06:20 Hgb 11.1 gm/dL (12-16) L 01/12/17 06:20 Hct 33.0 % (41.0-60) L 01/12/17 06:20 MCV 93.7 fl (81-100) 01/12/17 06:20 MCH 31.7 pg (27.0-31.0) H 01/12/17 06:20 MCHC Differential 33.8 pg (28.0-36.0) 01/12/17 06:20 RDW 11.5 % (11.5-20.0) 01/12/17 06:20 Plt Count 301 Th/cmm (150-400) 01/12/17 06:20 MPV 7.6 fl 01/12/17 06:20 Neutrophils % 49.9 % (40.0-80.0) 01/12/17 06:20 Lymphocytes % 39.4 % (20.0-50.0) 01/12/17 06:20 Monocytes % 8.2 % (2.0-10.0) 01/12/17 06:20 Eosinophils % 2.4 % (0.0-5.0) 01/12/17 06:20 Basophils % 0.1 % (0.0-2.0) 01/12/17 06:20 PT 11.2 SECONDS (9.5-11.5) 01/12/17 06:20 INR 1.08 (0.5-1.4) 01/12/17 06:20 PTT (Actin FS) 23.3 SECONDS (26.0-38.0) L 01/12/17 06:20 Sodium 139 mEq/L (136-145) 01/12/17 06:20 Potassium 3.6 mEq/L (3.5-5.1) 01/12/17 06:20 Chloride 108 mEq/L (98-107) H 01/12/17 06:20 Carbon Dioxide 26.6 mEq/L (21.0-31.0) 01/12/17 06:20 Anion Gap 8.0 (7.0-16.0) 01/12/17 06:20 BUN 6 mg/dL (7-25) L 01/12/17 06:20 Creatinine 0.7 mg/dL (0.6-1.2) 01/12/17 06:20 Est GFR ( Amer) > 60.0 ml/min (>90) 01/12/17 06:20 Est GFR (Non-Af Amer) > 60.0 ml/min 01/12/17 06:20 BUN/Creatinine Ratio 8.6 01/12/17 06:20 Glucose 89 mg/dL (70-105) 01/12/17 06:20 Calcium 9.0 mg/dL (8.6-10.3) 01/12/17 06:20 Total Bilirubin 0.4 mg/dL (0.3-1.0) 01/11/17 22:53 Direct Bilirubin 0.05 mg/dL (0.0-0.2) 01/11/17 22:53 AST 12 U/L (13-39) L 01/11/17 22:53 ALT 9 U/L (7-52) 01/11/17 22:53 Alkaline Phosphatase 80 U/L (34-104) 01/11/17 22:53 Total Protein 7.3 gm/dL (6.0-8.3) 01/11/17 22:53 Albumin 4.2 gm/dL (3.7-5.3) 01/11/17 22:53 Globulin 3.1 gm/dL 01/11/17 22:53 Albumin/Globulin Ratio 1.4 (1.0-1.8) 01/11/17 22:53 Lipase 12 U/L (11-82) 01/12/17 06:20 Urine Source CLEAN C 01/11/17 22:05 Urine Color YELLOW 01/11/17 22:05 Urine Clarity SLIGHT CLOUDY (CLEAR) 01/11/17 22:05 Urine pH 6.0 (4.6 - 8.0) 01/11/17 22:05 Ur Specific [place] 1.020 (1.005-1.030) 01/11/17 22:05 Urine Protein NEGATIVE mg/dL (NEGATIVE) 01/11/17 22:05 Urine Glucose (UA) NEGATIVE mg/dL (NEGATIVE) 01/11/17 22:05 Urine Ketones NEGATIVE mg/dL (NEGATIVE) 01/11/17 22:05 Urine Blood SMALL (NEGATIVE) H 01/11/17 22:05 Urine Nitrate NEGATIVE (NEGATIVE) 01/11/17 22:05 Urine Bilirubin NEGATIVE (NEGATIVE) 01/11/17 22:05 Urine Urobilinogen 0.2 E.U./dL (0.2 - 1.0) 01/11/17 22:05 Ur Leukocyte Esterase TRACE (NEGATIVE) H 01/11/17 22:05 Urine RBC 2-5 /hpf (0-5) 01/11/17 22:05 Urine WBC 2-5 /hpf (0-5) 01/11/17 22:05 Ur Epithelial Cells MODERATE /lpf (FEW) 01/11/17 22:05 Urine Bacteria FEW /hpf (NONE SEEN) 01/11/17 22:05 Urine Mucus MODERATE /lpf (FEW) 01/11/17 22:05 - Physical Exam Vitals and I&O: Vital Signs Temp 98.7 F 01/12/17 08:00 Pulse 67 01/12/17 08:21 Resp 17 01/12/17 08:00 BP 124/69 01/12/17 08:21 Pulse Ox 95 01/12/17 08:00 Intake & Output 01/11/17 01/12/17 01/12/17 18:59 06:59 18:59 Intake Total 100 Balance 100 Weight (lbs) 49.079 kg Intake: Intake, IV Amount 100 Ciprofloxacin 200mg 100 Premix PB 200 mg In 100 ml @ 100 mls/hr IV Q12H [facility] Rx#:[id number] Other: # Voids 1 # Bowel Movements 0 Active Medications: Current Medications Hydromorphone HCl (Dilaudid) 1 mg IVP Q3HR PRN PRN Reason: Pain (Severe) Stop: 03/13/17 02:09 Last Admin: 01/12/17 05:59 Dose: 1 mg Ciprofloxacin (Cipro 200mg Premix Pb) 200 mg in 100 mls @ 100 mls/hr IV Q12H [facility] Stop: 03/13/17 02:59 Last Infusion: 01/12/17 04:05 Dose: Infused Dextrose/Sodium Chloride (D5-0.45ns) 1,000 mls @ 75 mls/hr IV .[id number] [facility] Stop: 03/13/17 02:29 Last Admin: 01/12/17 03:05 Dose: 75 mls/hr Metoprolol Tartrate (Lopressor) 50 mg PO DAILY [facility] Stop: 03/13/17 08:59 Last Admin: 01/12/17 08:21 Dose: Not Given Ondansetron HCl (Zofran) 4 mg IV Q4HR PRN PRN Reason: Nausea / Vomiting Stop: 03/13/17 02:11 Last Admin: 01/12/17 03:13 Dose: 4 mg
--- NOTE | 2017-01-12 10:58 | History & Physical ---
ADMIT DATE: 01/12/2017 CHIEF COMPLAINT: Abdominal pain x 1 week. HISTORY OF PRESENT ILLNESS: This is a 51-year-old female with history of hypertension, who presented to the ER with a 1-week history of abdominal pain, more localized epigastrically and suprapubically associated with nausea, vomiting x 3 episodes with greenish-yellow emesis, multiple bouts of diarrhea about 10 per day, and fevers up to 102.8. She denies any similar previous episodes. On further questioning, the patient states that the pain gets worsen with p.o. intake. She denies any unusual p.o. intake or any recent traveling. PERTINENT FINDINGS ON ADMISSION: Include an abdominal ultrasound, which showed distended occult bladder with suggestion of a stone within the common bile duct. She also had a CT of the pelvis and abdomen suggestive of an 8 mm stone within the distal common bile duct. There is a mildly distended gallbladder. There is nonspecific fullness of the bilateral renal collecting systems without evidence of shaji hydronephrosis. There are also postsurgical changes in the pelvis. There is a nonspecific renal density measuring 2 cm in the region of cecum. There is no evidence of free fluid or free air. There are bibasilar atelectatic and consolidative changes and moderate atherosclerosis. The patient has been admitted to the medical floor for further management and care. PAST MEDICAL HISTORY: Hypertension. PAST SURGICAL HISTORY: She had a hysterectomy roughly about 1989 after his son was born. FAMILY HISTORY: Her mother approximately age 46 possibly secondary to a heart attack. Her father is borderline diabetic. He is obese. SOCIAL HISTORY: Alcohol, very, very seldomly. She is a former smoker, [id number], quit about 2-1/2 years ago and she lives at home with family. ALLERGIES: ASPIRIN, CEPHALEXIN, CODEINE, AND KETOROLAC. OUTPATIENT MEDICATIONS: Metoprolol 50 every day REVIEW OF SYSTEMS: CONSTITUTIONAL: Poor p.o. intake for the last week, fevers as noted above. CARDIAC: No chest pain or palpitations. PULMONARY: No cough or phlegm production. GASTROINTESTINAL: Nausea, vomiting as noted above. Diarrhea and abdominal pain as noted above. GENITOURINARY: Denies any UTI symptomatology. No dysuria or hematuria noted. NEUROLOGIC: No changes in vision. PHYSICAL EXAMINATION: VITAL SIGNS: Temperature 98.7, pulse 67, respirations 17, BP 124/69, satting 95% on room air. GENERAL: She is awake. She is a well-nourished, thin female, who looks somewhat uncomfortable secondary to pain. She is not in acute distress. HEAD AND NECK: Normocephalic, atraumatic. Pupils reactive to light. Extraocular movements are intact. Oropharynx is clear with dry mucous membranes. CARDIOVASCULAR: Regular rate and rhythm without any murmurs. LUNGS: Clear to auscultation, decreased at the bases. ABDOMEN: Soft, supple, flat with tenderness to palpation on the epigastric and periumbilical area. There are no peritoneal signs. There is no rebound. Currently hypoactive bowel sounds. LOWER EXTREMITIES: No edema. LABORATORY DATA: On admission, white count 7.7, H and H 12/36, and platelet count of 318. Sodium 136, potassium 3.2, chloride 103, carbon dioxide 23, BUN 7, creatinine 0.7, glucose 94, AST 12, ALT 9, alk phos 80, albumin 4.2, lipase 45. UA shows small blood, trace leuk esterase, 2-5 rbc's and 2-5 wbc's, few bacteria. DIAGNOSTICS: Please refer to the HPI. ASSESSMENT: 1. Acute cholecystitis with a common bile duct stone. 2. Urinary tract infection. 3. Bibasilar atelectasis, likely secondary to #1. 4. Atherosclerosis. 5. History of essential hypertension. 6. History of multiple drug allergies. PLAN: The patient has been admitted to the medical/surgical floor. She has been placed on IV fluids and is currently n.p.o. She has been started on Cipro 200 mg IV q. 12 and has been placed on pain management and also Zofran p.r.n. I have asked for a GI as well as a surgical eval for further management and care, possible ERCP. [facility]# [id number] MANUEL
--- NOTE | 2017-01-12 11:32 | Consultation ---
DATE OF CONSULTATION: 01/12/2017 SURGICAL CONSULTATION REFERRING PHYSICIAN: Dr. Pinon. REASON FOR CONSULTATION: Abdominal pain. Thank you for referring this patient to me. HISTORY OF PRESENT ILLNESS: This is a 51-year-old female who comes in because of abdominal pain for about a week. She claims pain in the upper abdomen and vomiting and diarrhea was present as well as fevers and chills. The laboratory studies show the CBC to be normal, chemistry, liver function tests are normal. Urinalysis is also normal. She underwent CT scan of the abdomen, which showed findings consistent with markedly distended gallbladder with 8 mm stone in the common duct. The ultrasound also showed distended gallbladder and suggestion of stone in the common duct. PAST MEDICAL HISTORY: Includes hysterectomy, ovarian_ cyst removal, appendectomy and adhesions. The patient apparently takes quite a bit of pain medication over the years. PHYSICAL EXAMINATION: Confirmed scars from previous surgeries. Tenderness in the upper abdomen is difficult to assess as the patient appears to be chronic drug user. PLAN: In view of the common duct stones visible on CT and ultrasound, this was discussed with Dr. Villareal and MRCP is likely not necessary and will proceed with ERCP. We will follow with you. JOB# [id number] MANUEL
--- NOTE | 2017-01-12 12:27 | Consultation ---
DATE OF CONSULTATION: 01/12/2017 INPATIENT CONSULTATION NOTE REFERRING PHYSICIAN: Dr. Pinon. REASON FOR CONSULTATION: Gallstones. HISTORY OF PRESENT ILLNESS: This is a 51-year-old female who has been having suprapubic pain radiating to her epigastric area for approximately one week. She also has associated diarrhea and has nausea and vomiting. She also endorsed some pain radiating to her back along with some fevers. PAST MEDICAL HISTORY: Hypertension. PAST SURGICAL HISTORY: Appendectomy, hysterectomy, ovarian cyst, abdominal scar, adhesiolysis. FAMILY HISTORY: Negative for stomach or colon cancer. SOCIAL HISTORY: She was a former smoker. No alcohol or IV drug usage. ALLERGIES: ASPIRIN, KEFLEX, CODEINE, KETOROLAC. CURRENT MEDICATIONS: Cipro, Dilaudid, Lopressor, Zofran. REVIEW OF SYSTEMS: A 10-point review of system was performed and the pertinent positive was the abdominal pain, fever, diarrhea, nausea and vomiting. All other systems were otherwise negative. PHYSICAL EXAMINATION: VITAL SIGNS: Temperature 98.7, breathing 17, pulse of 67, blood pressure 110/69, satting 95%. GENERAL: In no apparent distress. Eyes are anicteric. Normal conjunctivae. HEENT: Normocephalic, atraumatic. Moist mucous membranes. NECK: Soft, supple. CHEST: Clear. No effort. CARDIOVASCULAR: Regular rate and rhythm. ABDOMEN: Soft, nondistended. Tender abdomen. No rebound or guarding. SKIN: Warm, dry. EXTREMITIES: Reveal no cyanosis. PSYCHOLOGIC: Alert and oriented x 3. LABORATORY DATA: Show white count 6.5, hemoglobin 11.1, platelets of 301. INR is 1.08, total bilirubin 0.4, AST 12, ALT 9, alkaline phosphatase 80, lipase 12. Leukocyte esterase was positive. CT of the abdomen and pelvis suggested 8 mm stone within the distal common bile duct, mildly distended gallbladder, linear density in the region of the cecum. Abdominal ultrasound showed a distended gallbladder suggesting the stone within the common bile duct. IMPRESSION: A 51-year-old female with multiple symptoms. The patient has nausea, vomiting and diarrhea and abdominal pain, cause could be due to colitis. However, CT scan did not show, but there is possibly of foreign object in her cecum. Colonoscopy may be able to ascertain the identity of this object. Serial imaging can also follow the progress of this object to see if it travels down the colon and endoscopy could potentially determine if there are any problems with the stomach. However, the nausea and vomiting could also be related to gallstone disease and the imaging seemed to suggest that it may be the possibility of a common bile duct stone. However, the liver function tests are all within normal limits as well as the lipase making pancreatitis less likely as well. Imaging of the gallbladder by way of HIDA scan and MRI can also be helpful too. The patient in the meantime should be treated for her UTI. RECOMMENDATIONS AND PLAN: 1. Check HIDA scan. 2. Check MRCP. 3. Consider colonoscopy versus another KUB to see if the foreign object travels down out of her colon. Thank you for allowing me to participate. Please call me if any questions. Also, we will check stool studies. JOB# [id number]
--- NOTE | 2017-01-12 13:29 | Diagnostic Imaging Report ---
MRCP History: Common bile duct stone Comparison: Ultrasound and CT abdomen and pelvis on 01/11/2017 Technique/procedure: Inclusion Special Educator images demonstrate susceptibility artifact along the right lower quadrant. This corresponds to ingested foreign body seen along the right cecal region described on CT examination on 01/11/2017. As a result MRI cannot be performed safely at this time until eventual passage of the radiopaque foreign body. Short-term follow-up repeat KUBs may be obtained to ensure passage of the foreign body prior to MRI examination.
--- NOTE | 2017-01-12 13:53 | Diagnostic Imaging Report ---
Nuclear medicine HIDA scan HISTORY: Pain, assess for possible cholecystitis COMPARISON: Abdominal ultrasound and CT abdomen and pelvis on 01/11/2017 Technique/procedure: 4.9 mCi of technetium labeled Choletec was administered intravenously and multiple scintigraphic images were obtained for up to 1 hour. FINDINGS: Prompt hepatic uptake is demonstrated. No evidence of gallbladder uptake after 60 minutes. Small bowel uptake was demonstrated within the first half hour. There is majority of excretion of the radiotracer from the liver at one hour. IMPRESSION: No evidence of gallbladder uptake at 60 minutes. Note that acute or chronic cholecystitis cannot be excluded. Clinical correlation is recommended.
[2017-01-12] MEDS ORDERED: Probiotic Screen MC PRN (14:21)
--- NOTE | 2017-01-12 20:38 | History & Physical ---
ADMIT DATE: 01/12/2017 IDENTIFYING DATA: The patient is a 51-year-old woman living by herself, information obtained by directly interviewing the patient as well as reviewing the admission papers and they are reliable. JUSTIFICATION OF HOSPITALIZATION: The patient is admitted for an acute abdominal pain and the patient is reported being worked up for cholecystitis. Psychiatric consultation is called to address the issue of the depression. Chart is reviewed. The patient is interviewed and the patient has been able to give the information incoherent. The patient is stating that she never had any psychiatric treatment but has been seeing a therapist and just started to see a therapist. The therapist suggested she needs to get some Xanax. The patient is reporting that she has sustained a loss of her grandson 12 years ago. From then on, she had been experiencing depression but has been trying to deal with it. The patient's sleep and appetite prior to the hospitalization are reported to be fair. PAST PSYCHIATRIC HISTORY: None. MEDICAL HISTORY: The patient is being admitted for acute cholecystitis. SUBSTANCE ABUSE HISTORY: None. PHYSICAL OR SEXUAL ABUSE HISTORY: The patient is not giving much of information. LEGAL PROBLEMS: None at this time. STRENGTHS AND ASSETS: The patient is motivated. MENTAL EXAMINATION: The patient is a 51-year-old, looking her stated age, cooperative. Eye contact is fair. Mood is noted to be anxious. Affect is constricted. The patient is stating that she has been in pain. The patient is stating that she has been having difficult time to deal with the pain, but she states that she is trying to cope with it. The patient is not presenting with any auditory hallucinations or delusions noted. Insight and judgment are noted to be more fair. Impulse control is also noted to be fair. The patient is motivated to seek treatment. DIAGNOSTIC IMPRESSION: Adjustment disorder, depressed with anxiety symptoms. PLAN: To continue the patient with the supportive therapy and followup. Please note that there is no need any acute psychiatric medication intervention at this time. JOB# [id number]
[2017-01-12 22:12] LABS: AMPHETAMINE URINE NEGATIVE (NEGATIVE); BARBITURATES URINE NEGATIVE (NEGATIVE); METHADONE URINE NEGATIVE (NEGATIVE)
[2017-01-13] MEDS: HYDROmorphone 1 mg/mL 1mL Syr IVP PRN ×4 (00:59→13:40)
[2017-01-13] MEDS: Ciprofloxacin 200mg Premix PB 200 MG/100 ML BAG IV SCH ×2 (02:28→14:33)
[2017-01-13 06:45] LABS: ALB/GLOB RATIO 1.5 (1.0-1.8); ALKALINE PHOSPHATASE 71 U/L (34-104); BILIRUBIN,TOTAL 0.3 mg/dL (0.3-1.0); BUN - UREA NITROGEN 4 mg/dL (7-25); CALCIUM SERUM 9.2 mg/dL (8.6-10.3); CARBON DIOXIDE 25.7 mEq/L (21.0-31.0); CHLORIDE 104 mEq/L (98-107); CREATININE - SERUM 0.8 mg/dL (0.6-1.2); GLUCOSE 104 mg/dL (70-105); POTASSIUM SERUM 3.7 mEq/L (3.5-5.1); SGOT 12 U/L (13-39); SGPT/ALT 7 U/L (7-52); SODIUM SERUM 135 mEq/L (136-145)
[2017-01-13 08:04] LABS: % BASOPHILS 0.3 % (0.0-2.0); % EOSINOPHILS 6.4 % (0.0-5.0); % LYMPHOCYTES 40.5 % (20.0-50.0); % NEUTROPHILS 43.8 % (40.0-80.0); HEMATOCRIT 33.9 % (41.0-60); HEMOGLOBIN 11.4 gm/dL (12-16); MEAN CELL VOLUME 92.4 fl (81-100); MEAN CORPUSCULAR HEMOGLOBIN 31.2 pg (27.0-31.0); MEAN CORPUSCULAR HGB CONC 33.8 pg (28.0-36.0); MEAN PLATELET VOLUME 7.7 fl; NEUTROPHILE ABSOLUTE 2.7 Th/cmm (1.8-8.0); PLATELET COUNT 274 Th/cmm (150-400); RED BLOOD COUNT 3.67 Mil/cmm (3.80-5.10); RED CELL DISTRIBUTION WIDTH 11.9 % (11.5-20.0); WHITE BLOOD COUNT 6.2 Th/cmm (4.8-10.8)
--- NOTE | 2017-01-13 09:14 | Diagnostic Imaging Report ---
KUB single view HISTORY: Foreign object in cecum COMPARISON: CT abdomen and pelvis 01/11/2017 FINDINGS: 1.8 cm foreign body is again noted in the region of the cecum. Postsurgical changes of pelvis are noted. Gas-filled loops of bowel are noted in the nonspecific pattern. No evidence of gross free air. IMPRESSION: Relatively unchanged appearance of 1.8 cm foreign body in the region of the cecum likely a swallowed foreign body when compared to previous CT examination. Overall nonspecific bowel gas pattern.
--- NOTE | 2017-01-13 10:38 | General Progress Note ---
Subjective - Review of Systems Service Date: 01/13/17 Events since last encounter: atrial lead displaced, will reposition, discussed with daughter Objective - Results Result Diagrams: 01/13/17 07:40 01/13/17 05:57 Recent Labs: Laboratory Last Values WBC 6.2 Th/cmm (4.8-10.8) 01/13/17 07:40 RBC 3.67 Mil/cmm (3.80-5.10) L 01/13/17 07:40 Hgb 11.4 gm/dL (12-16) L 01/13/17 07:40 Hct 33.9 % (41.0-60) L 01/13/17 07:40 MCV 92.4 fl (81-100) 01/13/17 07:40 MCH 31.2 pg (27.0-31.0) H 01/13/17 07:40 MCHC Differential 33.8 pg (28.0-36.0) 01/13/17 07:40 RDW 11.9 % (11.5-20.0) 01/13/17 07:40 Plt Count 274 Th/cmm (150-400) 01/13/17 07:40 MPV 7.7 fl 01/13/17 07:40 Neutrophils % 43.8 % (40.0-80.0) 01/13/17 07:40 Lymphocytes % 40.5 % (20.0-50.0) 01/13/17 07:40 Monocytes % 9.0 % (2.0-10.0) 01/13/17 07:40 Eosinophils % 6.4 % (0.0-5.0) H 01/13/17 07:40 Basophils % 0.3 % (0.0-2.0) 01/13/17 07:40 PT 11.2 SECONDS (9.5-11.5) 01/12/17 06:20 INR 1.08 (0.5-1.4) 01/12/17 06:20 PTT (Actin FS) 23.3 SECONDS (26.0-38.0) L 01/12/17 06:20 Sodium 135 mEq/L (136-145) L 01/13/17 05:57 Potassium 3.7 mEq/L (3.5-5.1) 01/13/17 05:57 Chloride 104 mEq/L (98-107) 01/13/17 05:57 Carbon Dioxide 25.7 mEq/L (21.0-31.0) 01/13/17 05:57 Anion Gap 9.0 (7.0-16.0) 01/13/17 05:57 BUN 4 mg/dL (7-25) L 01/13/17 05:57 Creatinine 0.8 mg/dL (0.6-1.2) 01/13/17 05:57 Est GFR ( Amer) > 60.0 ml/min (>90) 01/13/17 05:57 Est GFR (Non-Af Amer) > 60.0 ml/min 01/13/17 05:57 BUN/Creatinine Ratio 5.0 01/13/17 05:57 Glucose 104 mg/dL (70-105) 01/13/17 05:57 Calcium 9.2 mg/dL (8.6-10.3) 01/13/17 05:57 Magnesium 1.8 mg/dL (1.9-2.7) L 01/13/17 05:57 Total Bilirubin 0.3 mg/dL (0.3-1.0) 01/13/17 05:57 Direct Bilirubin 0.05 mg/dL (0.0-0.2) 01/11/17 22:53 AST 12 U/L (13-39) L 01/13/17 05:57 ALT 7 U/L (7-52) 01/13/17 05:57 Alkaline Phosphatase 71 U/L (34-104) 01/13/17 05:57 Total Protein 6.3 gm/dL (6.0-8.3) 01/13/17 05:57 Albumin 3.8 gm/dL (3.7-5.3) 01/13/17 05:57 Globulin 2.5 gm/dL 01/13/17 05:57 Albumin/Globulin Ratio 1.5 (1.0-1.8) 01/13/17 05:57 Lipase 12 U/L (11-82) 01/12/17 06:20 Urine Source CLEAN C 01/11/17 22:05 Urine Color YELLOW 01/11/17 22:05 Urine Clarity SLIGHT CLOUDY (CLEAR) 01/11/17 22:05 Urine pH 6.0 (4.6 - 8.0) 01/11/17 22:05 Ur Specific [place] 1.020 (1.005-1.030) 01/11/17 22:05 Urine Protein NEGATIVE mg/dL (NEGATIVE) 01/11/17 22:05 Urine Glucose (UA) NEGATIVE mg/dL (NEGATIVE) 01/11/17 22:05 Urine Ketones NEGATIVE mg/dL (NEGATIVE) 01/11/17 22:05 Urine Blood SMALL (NEGATIVE) H 01/11/17 22:05 Urine Nitrate NEGATIVE (NEGATIVE) 01/11/17 22:05 Urine Bilirubin NEGATIVE (NEGATIVE) 01/11/17 22:05 Urine Urobilinogen 0.2 E.U./dL (0.2 - 1.0) 01/11/17 22:05 Ur Leukocyte Esterase TRACE (NEGATIVE) H 01/11/17 22:05 Urine RBC 2-5 /hpf (0-5) 01/11/17 22:05 Urine WBC 2-5 /hpf (0-5) 01/11/17 22:05 Ur Epithelial Cells MODERATE /lpf (FEW) 01/11/17 22:05 Urine Bacteria FEW /hpf (NONE SEEN) 01/11/17 22:05 Urine Mucus MODERATE /lpf (FEW) 01/11/17 22:05 Urine Opiates Screen POSITIVE (NEGATIVE) H 01/12/17 21:45 Urine Methadone Screen NEGATIVE (NEGATIVE) 01/12/17 21:45 Ur Barbiturates Screen NEGATIVE (NEGATIVE) 01/12/17 21:45 Ur Tricyclics Screen NEGATIVE (NEGATIVE) 01/12/17 21:45 Ur Phencyclidine Scrn NEGATIVE (NEGATIVE) 01/12/17 21:45 Amphetamines Screen NEGATIVE (NEGATIVE) 01/12/17 21:45 U Methamphetamines Scrn NEGATIVE (NEGATIVE) 01/12/17 21:45 U Benzodiazepines Scrn POSITIVE (NEGATIVE) H 01/12/17 21:45 U Cocaine Metab Screen NEGATIVE (NEGATIVE) 01/12/17 21:45 U Cannabinoids Screen NEGATIVE (NEGATIVE) 01/12/17 21:45 - Physical Exam Vitals and I&O: Vital Signs Temp 98.5 F 01/13/17 08:00 Pulse 72 01/13/17 08:00 Resp 20 01/13/17 08:00 BP 128/68 01/13/17 08:00 Pulse Ox 98 01/13/17 08:00 Intake & Output 01/12/17 01/13/17 01/13/17 18:59 06:59 18:59 Intake Total 1350 100 Balance 1350 100 Weight (lbs) 49.079 kg 51.437 kg Intake: Intake, IV Amount 1100 100 Ciprofloxacin 200mg 100 100 Premix PB 200 mg In 100 ml @ 100 mls/hr IV Q12H [facility] Rx#:[id number] D5-0.45NS 1,000 ml @ 75 1000 mls/hr IV .[id number] [facility] Rx #:[id number] Oral 250 0 Other: # Voids 4 6 Active Medications: Current Medications Hydromorphone HCl (Dilaudid) 1 mg IVP Q3HR PRN PRN Reason: Pain (Severe) Stop: 03/13/17 02:09 Last Admin: 01/13/17 08:20 Dose: 1 mg Ciprofloxacin (Cipro 200mg Premix Pb) 200 mg in 100 mls @ 100 mls/hr IV Q12H [facility] Stop: 03/13/17 02:59 Last Infusion: 01/13/17 06:42 Dose: Infused Dextrose/Sodium Chloride (D5-0.45ns) 1,000 mls @ 75 mls/hr IV .[id number] [facility] Stop: 03/13/17 02:29 Last Admin: 01/12/17 21:48 Dose: 75 mls/hr Lactobacillus Rhamnosus (Culturelle) 1 each PO DAILY [facility] Stop: 03/14/17 08:59 Metoprolol Tartrate (Lopressor) 50 mg PO DAILY [facility] Stop: 03/13/17 08:59 Last Admin: 01/12/17 08:21 Dose: Not Given Miscellaneous (Probiotic Screen) 1 ea [facility] PRN PRN PRN Reason: PROTOCOL Stop: 03/13/17 14:20 Ondansetron HCl (Zofran) 4 mg IV Q4HR PRN PRN Reason: Nausea / Vomiting Stop: 03/13/17 02:11 Last Admin: 01/13/17 04:19 Dose: 4 mg
[2017-01-13] MEDS: D5-0.45NS 1,000 ML IV SCH (13:40)
[2017-01-13] MEDS: Lactobacillus Rhamnosus 10 Billion CFU Capsule PO SCH (15:48)
[2017-01-13] MEDS: HYDROmorphone 2 mg/mL 1mL Vial IVP PRN ×3 (16:58→21:38)
[2017-01-13] MEDS ORDERED: Magnesium Citrate 1.75 GM/300 mL Bottle PO ONE (17:00)
[2017-01-14] MEDS: HYDROmorphone 2 mg/mL 1mL Vial IVP PRN ×5 (02:15→22:26)
[2017-01-14] MEDS: Ciprofloxacin 200mg Premix PB 200 MG/100 ML BAG IV SCH ×2 (02:15→14:37)
[2017-01-14 06:44] LABS: % BASOPHILS 0.6 % (0.0-2.0); % LYMPHOCYTES 34.2 % (20.0-50.0); % MONOCYTES 6.6 % (2.0-10.0); % NEUTROPHILS 54.6 % (40.0-80.0); HEMATOCRIT 40.8 % (41.0-60); MEAN CELL VOLUME 92.6 fl (81-100); MEAN CORPUSCULAR HEMOGLOBIN 31.1 pg (27.0-31.0); MEAN CORPUSCULAR HGB CONC 33.5 pg (28.0-36.0); MEAN PLATELET VOLUME 7.2 fl; NEUTROPHILE ABSOLUTE 3.5 Th/cmm (1.8-8.0); RED CELL DISTRIBUTION WIDTH 11.7 % (11.5-20.0); WHITE BLOOD COUNT 6.2 Th/cmm (4.8-10.8)
[2017-01-14 06:51] LABS: HEMOGLOBIN 13.7 gm/dL (12-16); PLATELET COUNT 360 Th/cmm (150-400)
[2017-01-14 07:08] LABS: ALB/GLOB RATIO 1.5 (1.0-1.8); ALKALINE PHOSPHATASE 80 U/L (34-104); BILIRUBIN,TOTAL 0.4 mg/dL (0.3-1.0); BUN - UREA NITROGEN 4 mg/dL (7-25); CALCIUM SERUM 9.8 mg/dL (8.6-10.3); CARBON DIOXIDE 29.8 mEq/L (21.0-31.0); CHLORIDE 104 mEq/L (98-107); CREATININE - SERUM 0.8 mg/dL (0.6-1.2); GLUCOSE 94 mg/dL (70-105); MAGNESIUM 2.3 mg/dL (1.9-2.7); POTASSIUM SERUM 3.8 mEq/L (3.5-5.1); SGOT 11 U/L (13-39); SGPT/ALT 7 U/L (7-52); SODIUM SERUM 137 mEq/L (136-145)
[2017-01-14 07:10] LABS: INR 1.14 (0.5-1.4)
[2017-01-14] MEDS: D5-0.45NS 1,000 ML IV SCH (08:23)
[2017-01-14] MEDS: Lactobacillus Rhamnosus 10 Billion CFU Capsule PO SCH (08:24)
--- NOTE | 2017-01-14 10:45 | General Progress Note ---
Subjective - Review of Systems Service Date: 01/14/17 Events since last encounter: labs normal will need ERCP for CBD stone prior to lap sunil Dr. Villareal plans moving patient to [place] for procedure Objective - Results Result Diagrams: 01/14/17 06:35 01/14/17 06:35 Recent Labs: Laboratory Last Values WBC 6.2 Th/cmm (4.8-10.8) 01/14/17 06:35 RBC 4.40 Mil/cmm (3.80-5.10) 01/14/17 06:35 Hgb 13.7 gm/dL (12-16) D 01/14/17 06:35 Hct 40.8 % (41.0-60) L D 01/14/17 06:35 MCV 92.6 fl (81-100) 01/14/17 06:35 MCH 31.1 pg (27.0-31.0) H 01/14/17 06:35 MCHC Differential 33.5 pg (28.0-36.0) 01/14/17 06:35 RDW 11.7 % (11.5-20.0) 01/14/17 06:35 Plt Count 360 Th/cmm (150-400) D 01/14/17 06:35 MPV 7.2 fl 01/14/17 06:35 Neutrophils % 54.6 % (40.0-80.0) 01/14/17 06:35 Lymphocytes % 34.2 % (20.0-50.0) 01/14/17 06:35 Monocytes % 6.6 % (2.0-10.0) 01/14/17 06:35 Eosinophils % 4.0 % (0.0-5.0) 01/14/17 06:35 Basophils % 0.6 % (0.0-2.0) 01/14/17 06:35 ESR 26 mm/hr (0-30) 01/14/17 06:35 PT 12.0 SECONDS (9.5-11.5) H 01/14/17 06:35 INR 1.14 (0.5-1.4) 01/14/17 06:35 PTT (Actin FS) 23.3 SECONDS (26.0-38.0) L 01/12/17 06:20 Sodium 137 mEq/L (136-145) 01/14/17 06:35 Potassium 3.8 mEq/L (3.5-5.1) 01/14/17 06:35 Chloride 104 mEq/L (98-107) 01/14/17 06:35 Carbon Dioxide 29.8 mEq/L (21.0-31.0) 01/14/17 06:35 Anion Gap 7.0 (7.0-16.0) 01/14/17 06:35 BUN 4 mg/dL (7-25) L 01/14/17 06:35 Creatinine 0.8 mg/dL (0.6-1.2) 01/14/17 06:35 Est GFR ( Amer) > 60.0 ml/min (>90) 01/14/17 06:35 Est GFR (Non-Af Amer) > 60.0 ml/min 01/14/17 06:35 BUN/Creatinine Ratio 5.0 01/14/17 06:35 Glucose 94 mg/dL (70-105) 01/14/17 06:35 Calcium 9.8 mg/dL (8.6-10.3) 01/14/17 06:35 Magnesium 2.3 mg/dL (1.9-2.7) 01/14/17 06:35 Total Bilirubin 0.4 mg/dL (0.3-1.0) 01/14/17 06:35 Direct Bilirubin 0.05 mg/dL (0.0-0.2) 01/11/17 22:53 AST 11 U/L (13-39) L 01/14/17 06:35 ALT 7 U/L (7-52) 01/14/17 06:35 Alkaline Phosphatase 80 U/L (34-104) 01/14/17 06:35 Total Protein 7.3 gm/dL (6.0-8.3) 01/14/17 06:35 Albumin 4.4 gm/dL (3.7-5.3) 01/14/17 06:35 Globulin 2.9 gm/dL 01/14/17 06:35 Albumin/Globulin Ratio 1.5 (1.0-1.8) 01/14/17 06:35 Lipase 12 U/L (11-82) 01/12/17 06:20 Urine Source CLEAN C 01/11/17 22:05 Urine Color YELLOW 01/11/17 22:05 Urine Clarity SLIGHT CLOUDY (CLEAR) 01/11/17 22:05 Urine pH 6.0 (4.6 - 8.0) 01/11/17 22:05 Ur Specific [place] 1.020 (1.005-1.030) 01/11/17 22:05 Urine Protein NEGATIVE mg/dL (NEGATIVE) 01/11/17 22:05 Urine Glucose (UA) NEGATIVE mg/dL (NEGATIVE) 01/11/17 22:05 Urine Ketones NEGATIVE mg/dL (NEGATIVE) 01/11/17 22:05 Urine Blood SMALL (NEGATIVE) H 01/11/17 22:05 Urine Nitrate NEGATIVE (NEGATIVE) 01/11/17 22:05 Urine Bilirubin NEGATIVE (NEGATIVE) 01/11/17 22:05 Urine Urobilinogen 0.2 E.U./dL (0.2 - 1.0) 01/11/17 22:05 Ur Leukocyte Esterase TRACE (NEGATIVE) H 01/11/17 22:05 Urine RBC 2-5 /hpf (0-5) 01/11/17 22:05 Urine WBC 2-5 /hpf (0-5) 01/11/17 22:05 Ur Epithelial Cells MODERATE /lpf (FEW) 01/11/17 22:05 Urine Bacteria FEW /hpf (NONE SEEN) 01/11/17 22:05 Urine Mucus MODERATE /lpf (FEW) 01/11/17 22:05 Urine Opiates Screen POSITIVE (NEGATIVE) H 01/12/17 21:45 Urine Methadone Screen NEGATIVE (NEGATIVE) 01/12/17 21:45 Ur Barbiturates Screen NEGATIVE (NEGATIVE) 01/12/17 21:45 Ur Tricyclics Screen NEGATIVE (NEGATIVE) 01/12/17 21:45 Ur Phencyclidine Scrn NEGATIVE (NEGATIVE) 01/12/17 21:45 Amphetamines Screen NEGATIVE (NEGATIVE) 01/12/17 21:45 U Methamphetamines Scrn NEGATIVE (NEGATIVE) 01/12/17 21:45 U Benzodiazepines Scrn POSITIVE (NEGATIVE) H 01/12/17 21:45 U Cocaine Metab Screen NEGATIVE (NEGATIVE) 01/12/17 21:45 U Cannabinoids Screen NEGATIVE (NEGATIVE) 01/12/17 21:45 - Physical Exam Vitals and I&O: Vital Signs Temp 97.4 F 01/14/17 08:00 Pulse 101 01/14/17 08:24 Resp 18 01/14/17 08:00 BP 137/75 01/14/17 08:24 Pulse Ox 96 01/14/17 08:00 Intake & Output 01/13/17 01/14/17 01/14/17 18:59 06:59 18:59 Intake Total 1467.5 882.5 Balance 1467.5 882.5 Weight (lbs) 52.254 kg Intake: Intake, IV Amount 1467.5 732.5 Ciprofloxacin 200mg 100 100 Premix PB 200 mg In 100 ml @ 100 mls/hr IV Q12H [facility] Rx#:[id number] D5-0.45NS 1,000 ml @ 75 1367.5 632.5 mls/hr IV .[id number] [facility] Rx #:[id number] Oral 150 Other: # Voids 5 # Bowel Movements 1 Active Medications: Current Medications Bisacodyl (Dulcolax 5 Mg Ec Tab) 10 mg PO X1 ONE Stop: 01/14/17 16:01 Hydromorphone HCl (Dilaudid) 2 mg IVP Q4HR PRN PRN Reason: Abdominal Pain Stop: 03/14/17 14:19 Last Admin: 01/14/17 06:22 Dose: 2 mg Ciprofloxacin (Cipro 200mg Premix Pb) 200 mg in 100 mls @ 100 mls/hr IV Q12H [facility] Stop: 03/13/17 02:59 Last Infusion: 01/14/17 06:18 Dose: Infused Dextrose/Sodium Chloride (D5-0.45ns) 1,000 mls @ 75 mls/hr IV .[id number] [facility] Stop: 03/13/17 02:29 Last Admin: 01/14/17 08:23 Dose: 75 mls/hr Lactobacillus Rhamnosus (Culturelle) 1 each PO DAILY [facility] Stop: 03/14/17 08:59 Last Admin: 01/14/17 08:24 Dose: 1 each Metoprolol Tartrate (Lopressor) 50 mg PO DAILY [facility] Stop: 03/13/17 08:59 Last Admin: 01/14/17 08:24 Dose: 50 mg Miscellaneous (Probiotic Screen) 1 [facility] PRN PRN PRN Reason: PROTOCOL Stop: 03/13/17 14:20 Ondansetron HCl (Zofran) 4 mg IV Q4HR PRN PRN Reason: Nausea / Vomiting Stop: 03/13/17 02:11 Last Admin: 01/13/17 19:27 Dose: 4 mg Polyethylene Glycol/Electrolytes (Golytely) 4,000 ml PO X1 ONE Stop: 01/14/17 16:59 Temazepam (Restoril) 15 mg PO HS PRN; Protocol PRN Reason: Insomnia Stop: 03/14/17 16:59 Last Admin: 01/14/17 02:26 Dose: 15 mg
[2017-01-15] MEDS: D5-0.45NS 1,000 ML IV SCH ×2 (00:11→15:42)
[2017-01-15] MEDS: Ciprofloxacin 200mg Premix PB 200 MG/100 ML BAG IV SCH ×2 (04:38→14:43)
[2017-01-15] MEDS: HYDROmorphone 2 mg/mL 1mL Vial IVP PRN ×5 (04:38→22:39)
[2017-01-15 06:10] LABS: % BASOPHILS 0.2 % (0.0-2.0); % EOSINOPHILS 3.6 % (0.0-5.0); % LYMPHOCYTES 32.2 % (20.0-50.0); % MONOCYTES 7.3 % (2.0-10.0); % NEUTROPHILS 56.7 % (40.0-80.0); HEMATOCRIT 33.7 % (41.0-60); HEMOGLOBIN 11.5 gm/dL (12-16); MEAN CELL VOLUME 92.5 fl (81-100); MEAN CORPUSCULAR HEMOGLOBIN 31.6 pg (27.0-31.0); MEAN CORPUSCULAR HGB CONC 34.1 pg (28.0-36.0); MEAN PLATELET VOLUME 7.5 fl; NEUTROPHILE ABSOLUTE 3.8 Th/cmm (1.8-8.0); PLATELET COUNT 331 Th/cmm (150-400); RED BLOOD COUNT 3.64 Mil/cmm (3.80-5.10); RED CELL DISTRIBUTION WIDTH 11.5 % (11.5-20.0); WHITE BLOOD COUNT 6.6 Th/cmm (4.8-10.8)
[2017-01-15 06:30] LABS: ANION GAP 8.6 (7.0-16.0); CALCIUM SERUM 9.1 mg/dL (8.6-10.3); CARBON DIOXIDE 29.8 mEq/L (21.0-31.0); CHLORIDE 101 mEq/L (98-107); CREATININE - SERUM 0.7 mg/dL (0.6-1.2); GLUCOSE 119 mg/dL (70-105); MAGNESIUM 1.8 mg/dL (1.9-2.7); POTASSIUM SERUM 3.4 mEq/L (3.5-5.1); SODIUM SERUM 136 mEq/L (136-145)
[2017-01-15 06:34] LABS: BUN - UREA NITROGEN < 2 mg/dL (7-25); BUN/CREATININE RATIO 2.9
[2017-01-15] MEDS: Lactobacillus Rhamnosus 10 Billion CFU Capsule PO SCH (08:56)
[2017-01-15] MEDS ORDERED: Potassium Chloride 20 mEq ER Tab PO ONE (09:13)
--- NOTE | 2017-01-15 14:17 | GI Progress Note ---
Subjective - Review of Systems Subjective: NO EVENTS THINKS SHE HAD COLONOSCOPY RECENTLY Objective - Results Result Diagrams: 01/15/17 05:20 01/15/17 05:20 Recent Labs: Laboratory Last Values WBC 6.6 Th/cmm (4.8-10.8) 01/15/17 05:20 RBC 3.64 Mil/cmm (3.80-5.10) L 01/15/17 05:20 Hgb 11.5 gm/dL (12-16) L D 01/15/17 05:20 Hct 33.7 % (41.0-60) L D 01/15/17 05:20 MCV 92.5 fl (81-100) 01/15/17 05:20 MCH 31.6 pg (27.0-31.0) H 01/15/17 05:20 MCHC Differential 34.1 pg (28.0-36.0) 01/15/17 05:20 RDW 11.5 % (11.5-20.0) 01/15/17 05:20 Plt Count 331 Th/cmm (150-400) 01/15/17 05:20 MPV 7.5 fl 01/15/17 05:20 Neutrophils % 56.7 % (40.0-80.0) 01/15/17 05:20 Lymphocytes % 32.2 % (20.0-50.0) 01/15/17 05:20 Monocytes % 7.3 % (2.0-10.0) 01/15/17 05:20 Eosinophils % 3.6 % (0.0-5.0) 01/15/17 05:20 Basophils % 0.2 % (0.0-2.0) 01/15/17 05:20 ESR 26 mm/hr (0-30) 01/14/17 06:35 PT 12.0 SECONDS (9.5-11.5) H 01/14/17 06:35 INR 1.14 (0.5-1.4) 01/14/17 06:35 PTT (Actin FS) 23.3 SECONDS (26.0-38.0) L 01/12/17 06:20 Sodium 136 mEq/L (136-145) 01/15/17 05:20 Potassium 3.4 mEq/L (3.5-5.1) L 01/15/17 05:20 Chloride 101 mEq/L (98-107) 01/15/17 05:20 Carbon Dioxide 29.8 mEq/L (21.0-31.0) 01/15/17 05:20 Anion Gap 8.6 (7.0-16.0) 01/15/17 05:20 BUN < 2 mg/dL (7-25) L 01/15/17 05:20 Creatinine 0.7 mg/dL (0.6-1.2) 01/15/17 05:20 Est GFR ( Amer) > 60.0 ml/min (>90) 01/15/17 05:20 Est GFR (Non-Af Amer) > 60.0 ml/min 01/15/17 05:20 BUN/Creatinine Ratio 2.9 01/15/17 05:20 Glucose 119 mg/dL (70-105) H 01/15/17 05:20 Calcium 9.1 mg/dL (8.6-10.3) 01/15/17 05:20 Magnesium 1.8 mg/dL (1.9-2.7) L 01/15/17 05:20 Total Bilirubin 0.4 mg/dL (0.3-1.0) 01/14/17 06:35 Direct Bilirubin 0.05 mg/dL (0.0-0.2) 01/11/17 22:53 AST 11 U/L (13-39) L 01/14/17 06:35 ALT 7 U/L (7-52) 01/14/17 06:35 Alkaline Phosphatase 80 U/L (34-104) 01/14/17 06:35 Total Protein 7.3 gm/dL (6.0-8.3) 01/14/17 06:35 Albumin 4.4 gm/dL (3.7-5.3) 01/14/17 06:35 Globulin 2.9 gm/dL 01/14/17 06:35 Albumin/Globulin Ratio 1.5 (1.0-1.8) 01/14/17 06:35 Lipase 12 U/L (11-82) 01/12/17 06:20 Urine Source CLEAN C 01/11/17 22:05 Urine Color YELLOW 01/11/17 22:05 Urine Clarity SLIGHT CLOUDY (CLEAR) 01/11/17 22:05 Urine pH 6.0 (4.6 - 8.0) 01/11/17 22:05 Ur Specific [place] 1.020 (1.005-1.030) 01/11/17 22:05 Urine Protein NEGATIVE mg/dL (NEGATIVE) 01/11/17 22:05 Urine Glucose (UA) NEGATIVE mg/dL (NEGATIVE) 01/11/17 22:05 Urine Ketones NEGATIVE mg/dL (NEGATIVE) 01/11/17 22:05 Urine Blood SMALL (NEGATIVE) H 01/11/17 22:05 Urine Nitrate NEGATIVE (NEGATIVE) 01/11/17 22:05 Urine Bilirubin NEGATIVE (NEGATIVE) 01/11/17 22:05 Urine Urobilinogen 0.2 E.U./dL (0.2 - 1.0) 01/11/17 22:05 Ur Leukocyte Esterase TRACE (NEGATIVE) H 01/11/17 22:05 Urine RBC 2-5 /hpf (0-5) 01/11/17 22:05 Urine WBC 2-5 /hpf (0-5) 01/11/17 22:05 Ur Epithelial Cells MODERATE /lpf (FEW) 01/11/17 22:05 Urine Bacteria FEW /hpf (NONE SEEN) 01/11/17 22:05 Urine Mucus MODERATE /lpf (FEW) 01/11/17 22:05 Urine Opiates Screen POSITIVE (NEGATIVE) H 01/12/17 21:45 Urine Methadone Screen NEGATIVE (NEGATIVE) 01/12/17 21:45 Ur Barbiturates Screen NEGATIVE (NEGATIVE) 01/12/17 21:45 Ur Tricyclics Screen NEGATIVE (NEGATIVE) 01/12/17 21:45 Ur Phencyclidine Scrn NEGATIVE (NEGATIVE) 01/12/17 21:45 Amphetamines Screen NEGATIVE (NEGATIVE) 01/12/17 21:45 U Methamphetamines Scrn NEGATIVE (NEGATIVE) 01/12/17 21:45 U Benzodiazepines Scrn POSITIVE (NEGATIVE) H 01/12/17 21:45 U Cocaine Metab Screen NEGATIVE (NEGATIVE) 01/12/17 21:45 U Cannabinoids Screen NEGATIVE (NEGATIVE) 01/12/17 21:45 - Physical Exam Vitals and I&O: Vital Signs Temp 97.3 F 01/15/17 07:50 Pulse 91 01/15/17 08:59 Resp 18 01/15/17 07:50 BP 114/80 01/15/17 08:59 Pulse Ox 100 01/15/17 07:50 Intake & Output 01/14/17 01/15/17 01/15/17 18:59 06:59 18:59 Intake Total 840 610 Balance 840 610 Weight (lbs) 52.254 kg Intake: Intake, IV Amount 840 360 Ciprofloxacin 200mg 100 100 Premix PB 200 mg In 100 ml @ 100 mls/hr IV Q12H [facility] Rx#:[id number] D5-0.45NS 1,000 ml @ 75 740 260 mls/hr IV .[id number] [facility] Rx #:[id number] Oral 250 Other: # Bowel Movements 3 Active Medications: Current Medications Hydromorphone HCl (Dilaudid) 2 mg IVP Q4HR PRN PRN Reason: Abdominal Pain Stop: 03/14/17 14:19 Last Admin: 01/15/17 13:55 Dose: 2 mg Ciprofloxacin (Cipro 200mg Premix Pb) 200 mg in 100 mls @ 100 mls/hr IV Q12H [facility] Stop: 03/13/17 02:59 Last Infusion: 01/15/17 05:38 Dose: Infused Dextrose/Sodium Chloride (D5-0.45ns) 1,000 mls @ 75 mls/hr IV .[id number] [facility] Stop: 03/13/17 02:29 Last Admin: 01/15/17 00:11 Dose: 75 mls/hr Lactobacillus Rhamnosus (Culturelle) 1 each PO DAILY [facility] Stop: 03/14/17 08:59 Last Admin: 01/15/17 08:56 Dose: 1 each Lorazepam (Ativan) 1 mg IVP Q6HR PRN; Protocol PRN Reason: Anxiety Stop: 03/15/17 15:38 Last Admin: 01/15/17 11:00 Dose: 1 mg Metoprolol Tartrate (Lopressor) 50 mg PO DAILY [facility] Stop: 03/13/17 08:59 Last Admin: 01/15/17 08:59 Dose: Not Given Miscellaneous (Probiotic Screen) 1 ea [facility] PRN PRN PRN Reason: PROTOCOL Stop: 03/13/17 14:20 Ondansetron HCl (Zofran) 4 mg IV Q4HR PRN PRN Reason: Nausea / Vomiting Stop: 03/13/17 02:11 Last Admin: 01/13/17 19:27 Dose: 4 mg Temazepam (Restoril) 15 mg PO HS PRN; Protocol PRN Reason: Insomnia Stop: 03/14/17 16:59 Last Admin: 01/15/17 00:11 Dose: 15 mg Assessment/Plan - Assessment Assessment: 51 YO FEMALE WITH POSSIBLE CBD STONE AND CHOLECYSTITIS LFTS ARE NORMAL ALSO HAS THE FINDING OF FOREIGN OBJECT IN THE CECUM PT HAD PRIOR COLO AND IT IS POSSIBLE THIS OBJECT IF AN ENDOCLIP 1.GET COLO OP REPORT 2.MRCP PENDING CLARIFICATION OF THE FOREIGN OBJECT
[2017-01-16] MEDS: HYDROmorphone 2 mg/mL 1mL Vial IVP PRN ×3 (02:57→19:56)
[2017-01-16] MEDS: Ciprofloxacin 200mg Premix PB 200 MG/100 ML BAG IV SCH ×2 (03:30→14:34)
[2017-01-16 06:10] LABS: ANION GAP 6.8 (7.0-16.0); BUN/CREATININE RATIO 2.9; CALCIUM SERUM 9.3 mg/dL (8.6-10.3); CARBON DIOXIDE 29.8 mEq/L (21.0-31.0); CHLORIDE 102 mEq/L (98-107); CREATININE - SERUM 0.7 mg/dL (0.6-1.2); GLUCOSE 112 mg/dL (70-105); MAGNESIUM 1.8 mg/dL (1.9-2.7); POTASSIUM SERUM 3.6 mEq/L (3.5-5.1); SODIUM SERUM 135 mEq/L (136-145)
[2017-01-16 06:11] LABS: BUN - UREA NITROGEN < 2 mg/dL (7-25)
[2017-01-16] MEDS: D5-0.45NS 1,000 ML IV SCH ×2 (08:04→23:01)
--- NOTE | 2017-01-16 08:14 | GI Progress Note ---
Subjective - Review of Systems Subjective: NO EVENTS THINKS SHE HAD COLONOSCOPY RECENTLY Objective - Results Result Diagrams: 01/15/17 05:20 01/16/17 05:00 Recent Labs: Laboratory Last Values WBC 6.6 Th/cmm (4.8-10.8) 01/15/17 05:20 RBC 3.64 Mil/cmm (3.80-5.10) L 01/15/17 05:20 Hgb 11.5 gm/dL (12-16) L D 01/15/17 05:20 Hct 33.7 % (41.0-60) L D 01/15/17 05:20 MCV 92.5 fl (81-100) 01/15/17 05:20 MCH 31.6 pg (27.0-31.0) H 01/15/17 05:20 MCHC Differential 34.1 pg (28.0-36.0) 01/15/17 05:20 RDW 11.5 % (11.5-20.0) 01/15/17 05:20 Plt Count 331 Th/cmm (150-400) 01/15/17 05:20 MPV 7.5 fl 01/15/17 05:20 Neutrophils % 56.7 % (40.0-80.0) 01/15/17 05:20 Lymphocytes % 32.2 % (20.0-50.0) 01/15/17 05:20 Monocytes % 7.3 % (2.0-10.0) 01/15/17 05:20 Eosinophils % 3.6 % (0.0-5.0) 01/15/17 05:20 Basophils % 0.2 % (0.0-2.0) 01/15/17 05:20 ESR 26 mm/hr (0-30) 01/14/17 06:35 PT 12.0 SECONDS (9.5-11.5) H 01/14/17 06:35 INR 1.14 (0.5-1.4) 01/14/17 06:35 PTT (Actin FS) 23.3 SECONDS (26.0-38.0) L 01/12/17 06:20 Sodium 135 mEq/L (136-145) L 01/16/17 05:00 Potassium 3.6 mEq/L (3.5-5.1) 01/16/17 05:00 Chloride 102 mEq/L (98-107) 01/16/17 05:00 Carbon Dioxide 29.8 mEq/L (21.0-31.0) 01/16/17 05:00 Anion Gap 6.8 (7.0-16.0) L 01/16/17 05:00 BUN < 2 mg/dL (7-25) L 01/16/17 05:00 Creatinine 0.7 mg/dL (0.6-1.2) 01/16/17 05:00 Est GFR ( Amer) > 60.0 ml/min (>90) 01/16/17 05:00 Est GFR (Non-Af Amer) > 60.0 ml/min 01/16/17 05:00 BUN/Creatinine Ratio 2.9 01/16/17 05:00 Glucose 112 mg/dL (70-105) H 01/16/17 05:00 Calcium 9.3 mg/dL (8.6-10.3) 01/16/17 05:00 Magnesium 1.8 mg/dL (1.9-2.7) L 01/16/17 05:00 Total Bilirubin 0.4 mg/dL (0.3-1.0) 01/14/17 06:35 Direct Bilirubin 0.05 mg/dL (0.0-0.2) 01/11/17 22:53 AST 11 U/L (13-39) L 01/14/17 06:35 ALT 7 U/L (7-52) 01/14/17 06:35 Alkaline Phosphatase 80 U/L (34-104) 01/14/17 06:35 Total Protein 7.3 gm/dL (6.0-8.3) 01/14/17 06:35 Albumin 4.4 gm/dL (3.7-5.3) 01/14/17 06:35 Globulin 2.9 gm/dL 01/14/17 06:35 Albumin/Globulin Ratio 1.5 (1.0-1.8) 01/14/17 06:35 Lipase 12 U/L (11-82) 01/12/17 06:20 Urine Source CLEAN C 01/11/17 22:05 Urine Color YELLOW 01/11/17 22:05 Urine Clarity SLIGHT CLOUDY (CLEAR) 01/11/17 22:05 Urine pH 6.0 (4.6 - 8.0) 01/11/17 22:05 Ur Specific [place] 1.020 (1.005-1.030) 01/11/17 22:05 Urine Protein NEGATIVE mg/dL (NEGATIVE) 01/11/17 22:05 Urine Glucose (UA) NEGATIVE mg/dL (NEGATIVE) 01/11/17 22:05 Urine Ketones NEGATIVE mg/dL (NEGATIVE) 01/11/17 22:05 Urine Blood SMALL (NEGATIVE) H 01/11/17 22:05 Urine Nitrate NEGATIVE (NEGATIVE) 01/11/17 22:05 Urine Bilirubin NEGATIVE (NEGATIVE) 01/11/17 22:05 Urine Urobilinogen 0.2 E.U./dL (0.2 - 1.0) 01/11/17 22:05 Ur Leukocyte Esterase TRACE (NEGATIVE) H 01/11/17 22:05 Urine RBC 2-5 /hpf (0-5) 01/11/17 22:05 Urine WBC 2-5 /hpf (0-5) 01/11/17 22:05 Ur Epithelial Cells MODERATE /lpf (FEW) 01/11/17 22:05 Urine Bacteria FEW /hpf (NONE SEEN) 01/11/17 22:05 Urine Mucus MODERATE /lpf (FEW) 01/11/17 22:05 Urine Opiates Screen POSITIVE (NEGATIVE) H 01/12/17 21:45 Urine Methadone Screen NEGATIVE (NEGATIVE) 01/12/17 21:45 Ur Barbiturates Screen NEGATIVE (NEGATIVE) 01/12/17 21:45 Ur Tricyclics Screen NEGATIVE (NEGATIVE) 01/12/17 21:45 Ur Phencyclidine Scrn NEGATIVE (NEGATIVE) 01/12/17 21:45 Amphetamines Screen NEGATIVE (NEGATIVE) 01/12/17 21:45 U Methamphetamines Scrn NEGATIVE (NEGATIVE) 01/12/17 21:45 U Benzodiazepines Scrn POSITIVE (NEGATIVE) H 01/12/17 21:45 U Cocaine Metab Screen NEGATIVE (NEGATIVE) 01/12/17 21:45 U Cannabinoids Screen NEGATIVE (NEGATIVE) 01/12/17 21:45 - Physical Exam Vitals and I&O: Vital Signs Temp 97.5 F 01/16/17 03:51 Pulse 81 01/16/17 03:51 Resp 18 01/16/17 03:51 BP 105/54 01/16/17 03:51 Pulse Ox 100 01/16/17 03:51 Intake & Output 01/15/17 01/16/17 01/16/17 18:59 06:59 18:59 Intake Total 1322.5 777.5 Balance 1322.5 777.5 Weight (lbs) 51.211 kg Intake: Intake, IV Amount 1322.5 777.5 Ciprofloxacin 200mg 100 Premix PB 200 mg In 100 ml @ 100 mls/hr IV Q12H [facility] Rx#:[id number] D5-0.45NS 1,000 ml @ 75 1222.5 777.5 mls/hr IV .[id number] [facility] Rx #:[id number] Active Medications: Current Medications Hydromorphone HCl (Dilaudid) 2 mg IVP Q4HR PRN PRN Reason: Abdominal Pain Stop: 03/14/17 14:19 Last Admin: 01/16/17 02:57 Dose: 2 mg Ciprofloxacin (Cipro 200mg Premix Pb) 200 mg in 100 mls @ 100 mls/hr IV Q12H [facility] Stop: 03/13/17 02:59 Last Admin: 01/16/17 03:30 Dose: 100 mls/hr Dextrose/Sodium Chloride (D5-0.45ns) 1,000 mls @ 75 mls/hr IV .[id number] [facility] Stop: 03/13/17 02:29 Last Admin: 01/16/17 08:04 Dose: 75 mls/hr Lactobacillus Rhamnosus (Culturelle) 1 each PO DAILY [facility] Stop: 03/14/17 08:59 Last Admin: 01/15/17 08:56 Dose: 1 each Lorazepam (Ativan) 1 mg IVP Q6HR PRN; Protocol PRN Reason: Anxiety Stop: 03/15/17 15:38 Last Admin: 01/15/17 21:53 Dose: 1 mg Metoprolol Tartrate (Lopressor) 50 mg PO DAILY [facility] Stop: 03/13/17 08:59 Last Admin: 01/15/17 08:59 Dose: Not Given Miscellaneous (Probiotic Screen) 1 ea MC PRN PRN PRN Reason: PROTOCOL Stop: 03/13/17 14:20 Ondansetron HCl (Zofran) 4 mg IV Q4HR PRN PRN Reason: Nausea / Vomiting Stop: 03/13/17 02:11 Last Admin: 01/13/17 19:27 Dose: 4 mg Temazepam (Restoril) 15 mg PO HS PRN; Protocol PRN Reason: Insomnia Stop: 03/14/17 16:59 Last Admin: 01/15/17 20:35 Dose: 15 mg Assessment/Plan - Assessment Assessment: 51 YO FEMALE WITH POSSIBLE CBD STONE AND CHOLECYSTITIS LFTS ARE NORMAL ALSO HAS THE FINDING OF FOREIGN OBJECT IN THE CECUM PT HAD PRIOR COLO AND IT IS POSSIBLE THIS OBJECT IS AN ENDOCLIP 1.GET COLO OP REPORT 2.MRCP PENDING CLARIFICATION OF THE FOREIGN OBJECT
[2017-01-16] MEDS: Lactobacillus Rhamnosus 10 Billion CFU Capsule PO SCH (08:54)
--- NOTE | 2017-01-16 09:30 | General Progress Note ---
Subjective - Review of Systems Service Date: 01/16/17 Events since last encounter: labs are OK, but CT raises question of CBD stone MRCP can not be done due to metallic FB suggest ERCP prior to surgery Objective - Results Result Diagrams: 01/15/17 05:20 01/16/17 05:00 Recent Labs: Laboratory Last Values WBC 6.6 Th/cmm (4.8-10.8) 01/15/17 05:20 RBC 3.64 Mil/cmm (3.80-5.10) L 01/15/17 05:20 Hgb 11.5 gm/dL (12-16) L D 01/15/17 05:20 Hct 33.7 % (41.0-60) L D 01/15/17 05:20 MCV 92.5 fl (81-100) 01/15/17 05:20 MCH 31.6 pg (27.0-31.0) H 01/15/17 05:20 MCHC Differential 34.1 pg (28.0-36.0) 01/15/17 05:20 RDW 11.5 % (11.5-20.0) 01/15/17 05:20 Plt Count 331 Th/cmm (150-400) 01/15/17 05:20 MPV 7.5 fl 01/15/17 05:20 Neutrophils % 56.7 % (40.0-80.0) 01/15/17 05:20 Lymphocytes % 32.2 % (20.0-50.0) 01/15/17 05:20 Monocytes % 7.3 % (2.0-10.0) 01/15/17 05:20 Eosinophils % 3.6 % (0.0-5.0) 01/15/17 05:20 Basophils % 0.2 % (0.0-2.0) 01/15/17 05:20 ESR 26 mm/hr (0-30) 01/14/17 06:35 PT 12.0 SECONDS (9.5-11.5) H 01/14/17 06:35 INR 1.14 (0.5-1.4) 01/14/17 06:35 PTT (Actin FS) 23.3 SECONDS (26.0-38.0) L 01/12/17 06:20 Sodium 135 mEq/L (136-145) L 01/16/17 05:00 Potassium 3.6 mEq/L (3.5-5.1) 01/16/17 05:00 Chloride 102 mEq/L (98-107) 01/16/17 05:00 Carbon Dioxide 29.8 mEq/L (21.0-31.0) 01/16/17 05:00 Anion Gap 6.8 (7.0-16.0) L 01/16/17 05:00 BUN < 2 mg/dL (7-25) L 01/16/17 05:00 Creatinine 0.7 mg/dL (0.6-1.2) 01/16/17 05:00 Est GFR ( Amer) > 60.0 ml/min (>90) 01/16/17 05:00 Est GFR (Non-Af Amer) > 60.0 ml/min 01/16/17 05:00 BUN/Creatinine Ratio 2.9 01/16/17 05:00 Glucose 112 mg/dL (70-105) H 01/16/17 05:00 Calcium 9.3 mg/dL (8.6-10.3) 01/16/17 05:00 Magnesium 1.8 mg/dL (1.9-2.7) L 01/16/17 05:00 Total Bilirubin 0.4 mg/dL (0.3-1.0) 01/14/17 06:35 Direct Bilirubin 0.05 mg/dL (0.0-0.2) 01/11/17 22:53 AST 11 U/L (13-39) L 01/14/17 06:35 ALT 7 U/L (7-52) 01/14/17 06:35 Alkaline Phosphatase 80 U/L (34-104) 01/14/17 06:35 Total Protein 7.3 gm/dL (6.0-8.3) 01/14/17 06:35 Albumin 4.4 gm/dL (3.7-5.3) 01/14/17 06:35 Globulin 2.9 gm/dL 01/14/17 06:35 Albumin/Globulin Ratio 1.5 (1.0-1.8) 01/14/17 06:35 Lipase 12 U/L (11-82) 01/12/17 06:20 Urine Source CLEAN C 01/11/17 22:05 Urine Color YELLOW 01/11/17 22:05 Urine Clarity SLIGHT CLOUDY (CLEAR) 01/11/17 22:05 Urine pH 6.0 (4.6 - 8.0) 01/11/17 22:05 Ur Specific [place] 1.020 (1.005-1.030) 01/11/17 22:05 Urine Protein NEGATIVE mg/dL (NEGATIVE) 01/11/17 22:05 Urine Glucose (UA) NEGATIVE mg/dL (NEGATIVE) 01/11/17 22:05 Urine Ketones NEGATIVE mg/dL (NEGATIVE) 01/11/17 22:05 Urine Blood SMALL (NEGATIVE) H 01/11/17 22:05 Urine Nitrate NEGATIVE (NEGATIVE) 01/11/17 22:05 Urine Bilirubin NEGATIVE (NEGATIVE) 01/11/17 22:05 Urine Urobilinogen 0.2 E.U./dL (0.2 - 1.0) 01/11/17 22:05 Ur Leukocyte Esterase TRACE (NEGATIVE) H 01/11/17 22:05 Urine RBC 2-5 /hpf (0-5) 01/11/17 22:05 Urine WBC 2-5 /hpf (0-5) 01/11/17 22:05 Ur Epithelial Cells MODERATE /lpf (FEW) 01/11/17 22:05 Urine Bacteria FEW /hpf (NONE SEEN) 01/11/17 22:05 Urine Mucus MODERATE /lpf (FEW) 01/11/17 22:05 Urine Opiates Screen POSITIVE (NEGATIVE) H 01/12/17 21:45 Urine Methadone Screen NEGATIVE (NEGATIVE) 01/12/17 21:45 Ur Barbiturates Screen NEGATIVE (NEGATIVE) 01/12/17 21:45 Ur Tricyclics Screen NEGATIVE (NEGATIVE) 01/12/17 21:45 Ur Phencyclidine Scrn NEGATIVE (NEGATIVE) 01/12/17 21:45 Amphetamines Screen NEGATIVE (NEGATIVE) 01/12/17 21:45 U Methamphetamines Scrn NEGATIVE (NEGATIVE) 01/12/17 21:45 U Benzodiazepines Scrn POSITIVE (NEGATIVE) H 01/12/17 21:45 U Cocaine Metab Screen NEGATIVE (NEGATIVE) 01/12/17 21:45 U Cannabinoids Screen NEGATIVE (NEGATIVE) 01/12/17 21:45 - Physical Exam Vitals and I&O: Vital Signs Temp 98.7 F 01/16/17 08:00 Pulse 73 01/16/17 08:55 Resp 18 01/16/17 08:00 BP 108/66 01/16/17 08:55 Pulse Ox 100 01/16/17 08:00 Intake & Output 01/15/17 01/16/17 01/16/17 18:59 06:59 18:59 Intake Total 1322.5 1077.5 Balance 1322.5 1077.5 Weight (lbs) 51.029 kg Intake: Intake, IV Amount 1322.5 777.5 Ciprofloxacin 200mg 100 Premix PB 200 mg In 100 ml @ 100 mls/hr IV Q12H [facility] Rx#:[id number] D5-0.45NS 1,000 ml @ 75 1222.5 777.5 mls/hr IV .[id number] [facility] Rx #:[id number] Oral 300 Other: # Voids 3 # Bowel Movements 0 Active Medications: Current Medications Hydromorphone HCl (Dilaudid) 2 mg IVP Q4HR PRN PRN Reason: Abdominal Pain Stop: 03/14/17 14:19 Last Admin: 01/16/17 08:54 Dose: 2 mg Ciprofloxacin (Cipro 200mg Premix Pb) 200 mg in 100 mls @ 100 mls/hr IV Q12H [facility] Stop: 03/13/17 02:59 Last Admin: 01/16/17 03:30 Dose: 100 mls/hr Dextrose/Sodium Chloride (D5-0.45ns) 1,000 mls @ 75 mls/hr IV .[id number] [facility] Stop: 03/13/17 02:29 Last Admin: 01/16/17 08:04 Dose: 75 mls/hr Lactobacillus Rhamnosus (Culturelle) 1 each PO DAILY [facility] Stop: 03/14/17 08:59 Last Admin: 01/16/17 08:54 Dose: 1 each Lorazepam (Ativan) 1 mg IVP Q6HR PRN; Protocol PRN Reason: Anxiety Stop: 03/15/17 15:38 Last Admin: 01/15/17 21:53 Dose: 1 mg Metoprolol Tartrate (Lopressor) 50 mg PO DAILY [facility] Stop: 03/13/17 08:59 Last Admin: 01/16/17 08:55 Dose: Not Given Miscellaneous (Probiotic Screen) 1 ea MC PRN PRN PRN Reason: PROTOCOL Stop: 03/13/17 14:20 Ondansetron HCl (Zofran) 4 mg IV Q4HR PRN PRN Reason: Nausea / Vomiting Stop: 03/13/17 02:11 Last Admin: 01/13/17 19:27 Dose: 4 mg Temazepam (Restoril) 15 mg PO HS PRN; Protocol PRN Reason: Insomnia Stop: 03/14/17 16:59 Last Admin: 01/15/17 20:35 Dose: 15 mg
[2017-01-17] MEDS: HYDROmorphone 2 mg/mL 1mL Vial IVP PRN ×3 (00:40→11:00)
[2017-01-17] MEDS: Ciprofloxacin 200mg Premix PB 200 MG/100 ML BAG IV SCH ×2 (02:59→15:36)
[2017-01-17 05:36] LABS: % BASOPHILS 0.4 % (0.0-2.0); % EOSINOPHILS 3.6 % (0.0-5.0); % LYMPHOCYTES 35.5 % (20.0-50.0); % MONOCYTES 9.9 % (2.0-10.0); % NEUTROPHILS 50.6 % (40.0-80.0); HEMATOCRIT 34.2 % (41.0-60); HEMOGLOBIN 11.6 gm/dL (12-16); MEAN CELL VOLUME 93.4 fl (81-100); MEAN CORPUSCULAR HEMOGLOBIN 31.7 pg (27.0-31.0); MEAN PLATELET VOLUME 7.9 fl; NEUTROPHILE ABSOLUTE 2.8 Th/cmm (1.8-8.0); PLATELET COUNT 309 Th/cmm (150-400); RED BLOOD COUNT 3.66 Mil/cmm (3.80-5.10); RED CELL DISTRIBUTION WIDTH 11.6 % (11.5-20.0); WHITE BLOOD COUNT 5.6 Th/cmm (4.8-10.8)
[2017-01-17 06:06] LABS: ANION GAP 9.6 (7.0-16.0); CALCIUM SERUM 9.4 mg/dL (8.6-10.3); CHLORIDE 103 mEq/L (98-107); CREATININE - SERUM 0.6 mg/dL (0.6-1.2); GLUCOSE 104 mg/dL (70-105); MAGNESIUM 1.7 mg/dL (1.9-2.7); POTASSIUM SERUM 3.6 mEq/L (3.5-5.1); SODIUM SERUM 138 mEq/L (136-145)
[2017-01-17 06:08] LABS: BUN - UREA NITROGEN 3 mg/dL (7-25)
[2017-01-17] MEDS: Lactobacillus Rhamnosus 10 Billion CFU Capsule PO SCH (08:51)
[2017-01-17] MEDS ORDERED: Mag Sulfate 2gm/50mL Premix 2 GM/50 ML BAG IV ONE (12:30)
--- NOTE | 2017-01-17 13:14 | GI Progress Note ---
Subjective - Review of Systems Subjective: NO EVENTS STILL HAD ABD PAIN ON THE RIGHT SIDE Objective - Results Result Diagrams: 01/17/17 05:05 01/17/17 05:05 Recent Labs: Laboratory Last Values WBC 5.6 Th/cmm (4.8-10.8) 01/17/17 05:05 RBC 3.66 Mil/cmm (3.80-5.10) L 01/17/17 05:05 Hgb 11.6 gm/dL (12-16) L 01/17/17 05:05 Hct 34.2 % (41.0-60) L 01/17/17 05:05 MCV 93.4 fl (81-100) 01/17/17 05:05 MCH 31.7 pg (27.0-31.0) H 01/17/17 05:05 MCHC Differential 34.0 pg (28.0-36.0) 01/17/17 05:05 RDW 11.6 % (11.5-20.0) 01/17/17 05:05 Plt Count 309 Th/cmm (150-400) 01/17/17 05:05 MPV 7.9 fl 01/17/17 05:05 Neutrophils % 50.6 % (40.0-80.0) 01/17/17 05:05 Lymphocytes % 35.5 % (20.0-50.0) 01/17/17 05:05 Monocytes % 9.9 % (2.0-10.0) 01/17/17 05:05 Eosinophils % 3.6 % (0.0-5.0) 01/17/17 05:05 Basophils % 0.4 % (0.0-2.0) 01/17/17 05:05 ESR 26 mm/hr (0-30) 01/14/17 06:35 PT 12.0 SECONDS (9.5-11.5) H 01/14/17 06:35 INR 1.14 (0.5-1.4) 01/14/17 06:35 PTT (Actin FS) 23.3 SECONDS (26.0-38.0) L 01/12/17 06:20 Sodium 138 mEq/L (136-145) 01/17/17 05:05 Potassium 3.6 mEq/L (3.5-5.1) 01/17/17 05:05 Chloride 103 mEq/L (98-107) 01/17/17 05:05 Carbon Dioxide 29.0 mEq/L (21.0-31.0) 01/17/17 05:05 Anion Gap 9.6 (7.0-16.0) 01/17/17 05:05 BUN 3 mg/dL (7-25) L 01/17/17 05:05 Creatinine 0.6 mg/dL (0.6-1.2) 01/17/17 05:05 Est GFR ( Amer) > 60.0 ml/min (>90) 01/17/17 05:05 Est GFR (Non-Af Amer) > 60.0 ml/min 01/17/17 05:05 BUN/Creatinine Ratio 5.0 01/17/17 05:05 Glucose 104 mg/dL (70-105) 01/17/17 05:05 Calcium 9.4 mg/dL (8.6-10.3) 01/17/17 05:05 Magnesium 1.7 mg/dL (1.9-2.7) L 01/17/17 05:05 Total Bilirubin 0.4 mg/dL (0.3-1.0) 01/14/17 06:35 Direct Bilirubin 0.05 mg/dL (0.0-0.2) 01/11/17 22:53 AST 11 U/L (13-39) L 01/14/17 06:35 ALT 7 U/L (7-52) 01/14/17 06:35 Alkaline Phosphatase 80 U/L (34-104) 01/14/17 06:35 Total Protein 7.3 gm/dL (6.0-8.3) 01/14/17 06:35 Albumin 4.4 gm/dL (3.7-5.3) 01/14/17 06:35 Globulin 2.9 gm/dL 01/14/17 06:35 Albumin/Globulin Ratio 1.5 (1.0-1.8) 01/14/17 06:35 Lipase 12 U/L (11-82) 01/12/17 06:20 Urine Source CLEAN C 01/11/17 22:05 Urine Color YELLOW 01/11/17 22:05 Urine Clarity SLIGHT CLOUDY (CLEAR) 01/11/17 22:05 Urine pH 6.0 (4.6 - 8.0) 01/11/17 22:05 Ur Specific [place] 1.020 (1.005-1.030) 01/11/17 22:05 Urine Protein NEGATIVE mg/dL (NEGATIVE) 01/11/17 22:05 Urine Glucose (UA) NEGATIVE mg/dL (NEGATIVE) 01/11/17 22:05 Urine Ketones NEGATIVE mg/dL (NEGATIVE) 01/11/17 22:05 Urine Blood SMALL (NEGATIVE) H 01/11/17 22:05 Urine Nitrate NEGATIVE (NEGATIVE) 01/11/17 22:05 Urine Bilirubin NEGATIVE (NEGATIVE) 01/11/17 22:05 Urine Urobilinogen 0.2 E.U./dL (0.2 - 1.0) 01/11/17 22:05 Ur Leukocyte Esterase TRACE (NEGATIVE) H 01/11/17 22:05 Urine RBC 2-5 /hpf (0-5) 01/11/17 22:05 Urine WBC 2-5 /hpf (0-5) 01/11/17 22:05 Ur Epithelial Cells MODERATE /lpf (FEW) 01/11/17 22:05 Urine Bacteria FEW /hpf (NONE SEEN) 01/11/17 22:05 Urine Mucus MODERATE /lpf (FEW) 01/11/17 22:05 Urine Opiates Screen POSITIVE (NEGATIVE) H 01/12/17 21:45 Urine Methadone Screen NEGATIVE (NEGATIVE) 01/12/17 21:45 Ur Barbiturates Screen NEGATIVE (NEGATIVE) 01/12/17 21:45 Ur Tricyclics Screen NEGATIVE (NEGATIVE) 01/12/17 21:45 Ur Phencyclidine Scrn NEGATIVE (NEGATIVE) 01/12/17 21:45 Amphetamines Screen NEGATIVE (NEGATIVE) 01/12/17 21:45 U Methamphetamines Scrn NEGATIVE (NEGATIVE) 01/12/17 21:45 U Benzodiazepines Scrn POSITIVE (NEGATIVE) H 01/12/17 21:45 U Cocaine Metab Screen NEGATIVE (NEGATIVE) 01/12/17 21:45 U Cannabinoids Screen NEGATIVE (NEGATIVE) 01/12/17 21:45 - Physical Exam Vitals and I&O: Vital Signs Temp 98.2 F 01/17/17 12:01 Pulse 62 01/17/17 12:01 Resp 18 01/17/17 12:01 BP 107/68 01/17/17 12:01 Pulse Ox 100 01/17/17 12:01 Intake & Output 01/16/17 01/17/17 01/17/17 18:59 06:59 18:59 Intake Total 1188.75 1461.25 Output Total 0 Balance 1188.75 1461.25 Weight (lbs) 51.029 kg 50.938 kg Intake: Intake, IV Amount 588.75 1161.25 Ciprofloxacin 200mg 100 100 Premix PB 200 mg In 100 ml @ 100 mls/hr IV Q12H [facility] Rx#:[id number] D5-0.45NS 1,000 ml @ 75 488.75 1061.25 mls/hr IV .[id number] [facility] Rx #:[id number] Oral 600 300 Output: Stool 0 Other: # Voids 4 Active Medications: Current Medications Hydromorphone HCl (Dilaudid) 2 mg IVP Q4HR PRN PRN Reason: Abdominal Pain Stop: 03/14/17 14:19 Last Admin: 01/17/17 11:00 Dose: 2 mg Ciprofloxacin (Cipro 200mg Premix Pb) 200 mg in 100 mls @ 100 mls/hr IV Q12H [facility] Stop: 03/13/17 02:59 Last Infusion: 01/17/17 06:22 Dose: Infused Dextrose/Sodium Chloride (D5-0.45ns) 1,000 mls @ 75 mls/hr IV .[id number] [facility] Stop: 03/13/17 02:29 Last Infusion: 01/17/17 06:21 Dose: 75 mls/hr Magnesium Sulfate (Magnesium Sulfate Premix) 2 gm in 50 mls @ 25 mls/hr IV X1 ONE Stop: 01/17/17 14:29 Last Admin: 01/17/17 12:36 Dose: 25 mls/hr Lactobacillus Rhamnosus (Culturelle) 1 each PO DAILY [facility] Stop: 03/14/17 08:59 Last Admin: 01/17/17 08:51 Dose: 1 each Lorazepam (Ativan) 1 mg IVP Q6HR PRN; Protocol PRN Reason: Anxiety Stop: 03/15/17 15:38 Last Admin: 01/17/17 12:54 Dose: 1 mg Metoprolol Tartrate (Lopressor) 50 mg PO DAILY [facility] Stop: 03/13/17 08:59 Last Admin: 01/17/17 08:51 Dose: Not Given Miscellaneous (Probiotic Screen) 1 ea MC PRN PRN PRN Reason: PROTOCOL Stop: 03/13/17 14:20 Ondansetron HCl (Zofran) 4 mg IV Q4HR PRN PRN Reason: Nausea / Vomiting Stop: 03/13/17 02:11 Last Admin: 01/13/17 19:27 Dose: 4 mg Temazepam (Restoril) 15 mg PO HS PRN; Protocol PRN Reason: Insomnia Stop: 03/14/17 16:59 Last Admin: 01/16/17 23:37 Dose: 15 mg Assessment/Plan - Assessment Assessment: 51 YO FEMALE WITH POSSIBLE CBD STONE AND CHOLECYSTITIS LFTS ARE NORMAL ALSO HAS THE FINDING OF FOREIGN OBJECT IN THE CECUM PT HAD EGD AND COLO 12/18/[address] [facility] WITH ENDOCLIP PLACEMENT THE CT SHOWED 2 CM LINEAR OBJECT IN THE CECUM WHICH COULD CORRESPOND TO THE ENDOCLIP D/W AND HE THOUGHT PT MAY HAD FOREIGN OBJECT PRIOR TO THE PROCEDURE 1.ERCP 2.EXP LAP AT THE TIME OF ANGIE 3.D/W PT RISK BENEFITS AND ALT AND POSSIBLE PANCREATITIS AND CRE INFECTION
[2017-01-17] MEDS: D5-0.45NS 1,000 ML IV SCH (20:29)
[2017-01-18] MEDS: Ciprofloxacin 200mg Premix PB 200 MG/100 ML BAG IV SCH ×2 (03:15→17:15)
[2017-01-18] MEDS: HYDROmorphone 2 mg/mL 1mL Vial IVP PRN ×4 (03:15→20:30)
[2017-01-18 06:19] LABS: % BASOPHILS 0.2 % (0.0-2.0); % EOSINOPHILS 2.8 % (0.0-5.0); % LYMPHOCYTES 18.2 % (20.0-50.0); % MONOCYTES 7.6 % (2.0-10.0); % NEUTROPHILS 71.2 % (40.0-80.0); HEMATOCRIT 32.9 % (41.0-60); HEMOGLOBIN 11.6 gm/dL (12-16); MEAN CELL VOLUME 91.4 fl (81-100); MEAN CORPUSCULAR HEMOGLOBIN 32.3 pg (27.0-31.0); MEAN CORPUSCULAR HGB CONC 35.4 pg (28.0-36.0); MEAN PLATELET VOLUME 8.5 fl; NEUTROPHILE ABSOLUTE 5.3 Th/cmm (1.8-8.0); PLATELET COUNT 260 Th/cmm (150-400); RED CELL DISTRIBUTION WIDTH 11.7 % (11.5-20.0)
[2017-01-18 06:25] LABS: INR 1.16 (0.5-1.4); PROTHROMBIN TIME (TEST) 12.2 SECONDS (9.5-11.5)
[2017-01-18 06:29] LABS: WHITE BLOOD COUNT 7.4 Th/cmm (4.8-10.8)
[2017-01-18 06:39] LABS: ANION GAP 7.8 (7.0-16.0); BUN - UREA NITROGEN 3 mg/dL (7-25); BUN/CREATININE RATIO 4.3; CALCIUM SERUM 9.3 mg/dL (8.6-10.3); CARBON DIOXIDE 30.2 mEq/L (21.0-31.0); CHLORIDE 102 mEq/L (98-107); CREATININE - SERUM 0.7 mg/dL (0.6-1.2); GLUCOSE 110 mg/dL (70-105); MAGNESIUM 1.9 mg/dL (1.9-2.7); SODIUM SERUM 136 mEq/L (136-145)
[2017-01-18] MEDS: Lactobacillus Rhamnosus 10 Billion CFU Capsule PO SCH (10:18)
[2017-01-18] MEDS: D5-0.45NS 1,000 ML IV SCH ×2 (11:48→16:28)
[2017-01-18] MEDS ORDERED: IOHEXOL 300MG/ML 50 ML VIAL ONE (12:58)
[2017-01-18] MEDS ORDERED: Midazolam 1mg/ml 2 ml vial IV ONE (14:24)
[2017-01-18] MEDS ORDERED: fentaNYL Citrate 100 mcg/2mL Vial ONE (14:24)
--- NOTE | 2017-01-18 15:25 | Diagnostic Imaging Report ---
Fluoroscopy was utilized for facilitation of ERCP procedure. Please refer to procedural report for complete details. The total fluoroscopic time for the exam was 55 seconds.
--- NOTE | 2017-01-18 19:12 | Operative Report ---
DATE OF SURGERY: 01/18/2017 INPATIENT GASTROINTESTINAL PROCEDURE NAME OF PROCEDURE: ERCP with stone removal. REFERRING PHYSICIAN: Dr. Pinon. REASON FOR PROCEDURE: Common bile duct stone. CONSENT: Risks, benefits, alternatives, nature, indication, possible outcomes were discussed. Mentioned bleeding, infection, perforation, , disability, cardiopulmonary distress and arrest, missed lesion and cancers, need for surgery, pancreatitis, prolonged hospitalization. The patient expressed understanding and provided informed consent. PREOPERATIVE DIAGNOSIS: Common bile duct stone. POSTOPERATIVE DIAGNOSIS: Common bile duct stone and sphincterotomy. MEDICATIONS: MAC provided by anesthesiologist. PROCEDURE: The patient was placed on her abdomen. The side-viewing duodenoscope was advanced under direct visualization to the second portion of duodenum where the major papilla was seen and appeared to be normal. Sphincter tone guidewire were used to selectively cannulate the common bile duct but this was not achievable. The wire was left in the pancreatic duct. Using a double-wire technique the second wire was able to cannulate the common bile duct. At this point, the pancreatic duct wire was then removed. We advanced the sphincter tone up deep into the common bile duct following up the wire. We performed a cholangiogram showing a distal filling defect. At this point, a sphincterotomy was performed ____ the wire with a gush of bile. We exchanged the sphincter tone for a stone extraction balloon; sweeping it several times, yielded a large black stone from the common bile duct. We did several more sweeps yielding no further stones. We did ____ cholangiogram showed no filling defect. There was good bowel drainage. The scope was then removed. COMPLICATIONS: None. FINDINGS: 1. Sphincterotomy. 2. Common bile duct stone, removed. 3. Nondilated common bile duct. RECOMMENDATIONS: 1. Follow LFTs. 2. Cholecystectomy per surgeon. 3. Continue supportive care. Thank you for allowing me to participate. Please call me if any questions. JOB# [id number]
[2017-01-19] MEDS: Ciprofloxacin 200mg Premix PB 200 MG/100 ML BAG IV SCH ×2 (03:06→14:51)
[2017-01-19] MEDS: HYDROmorphone 2 mg/mL 1mL Vial IVP PRN ×4 (03:56→23:05)
[2017-01-19 06:42] LABS: % BASOPHILS 0.5 % (0.0-2.0); % LYMPHOCYTES 30.3 % (20.0-50.0); % MONOCYTES 8.9 % (2.0-10.0); % NEUTROPHILS 57.3 % (40.0-80.0); MEAN CELL VOLUME 93.5 fl (81-100); MEAN CORPUSCULAR HGB CONC 34.2 pg (28.0-36.0); MEAN PLATELET VOLUME 8.4 fl; NEUTROPHILE ABSOLUTE 3.5 Th/cmm (1.8-8.0); PLATELET COUNT 290 Th/cmm (150-400); RED BLOOD COUNT 4.06 Mil/cmm (3.80-5.10); RED CELL DISTRIBUTION WIDTH 11.9 % (11.5-20.0); WHITE BLOOD COUNT 6.2 Th/cmm (4.8-10.8)
[2017-01-19 07:03] LABS: ANION GAP 8.7 (7.0-16.0); BUN - UREA NITROGEN 3 mg/dL (7-25); BUN/CREATININE RATIO 4.3; CALCIUM SERUM 9.7 mg/dL (8.6-10.3); CARBON DIOXIDE 28.8 mEq/L (21.0-31.0); CHLORIDE 103 mEq/L (98-107); CREATININE - SERUM 0.7 mg/dL (0.6-1.2); GLUCOSE 89 mg/dL (70-105); MAGNESIUM 1.7 mg/dL (1.9-2.7); POTASSIUM SERUM 3.5 mEq/L (3.5-5.1); SODIUM SERUM 137 mEq/L (136-145)
[2017-01-19 07:05] LABS: ALB/GLOB RATIO 1.9 (1.0-1.8); BILIRUBIN,DIRECT 0.11 mg/dL (0.0-0.2); BILIRUBIN,TOTAL 0.5 mg/dL (0.3-1.0)
--- NOTE | 2017-01-19 07:49 | Diagnostic Imaging Report ---
Portable chest x-ray Time: 0730 hours History: Chest pain Allowing for portable technique the heart size is normal. No focal pulmonary parenchymal processes. No hilar or mediastinal abnormalities. Impression: No acute abnormalities.
--- NOTE | 2017-01-19 10:07 | GI Progress Note ---
Subjective - Review of Systems Subjective: S/P ERCP WITH STONE REMOVAL NO EVENTS OR NEW COMPLAINTS Objective - Results Result Diagrams: 01/19/17 05:55 01/19/17 05:55 Recent Labs: Laboratory Last Values WBC 6.2 Th/cmm (4.8-10.8) 01/19/17 05:55 RBC 4.06 Mil/cmm (3.80-5.10) 01/19/17 05:55 Hgb 13.0 gm/dL (12-16) 01/19/17 05:55 Hct 38.0 % (41.0-60) L D 01/19/17 05:55 MCV 93.5 fl (81-100) 01/19/17 05:55 MCH 32.0 pg (27.0-31.0) H 01/19/17 05:55 MCHC Differential 34.2 pg (28.0-36.0) 01/19/17 05:55 RDW 11.9 % (11.5-20.0) 01/19/17 05:55 Plt Count 290 Th/cmm (150-400) 01/19/17 05:55 MPV 8.4 fl 01/19/17 05:55 Neutrophils % 57.3 % (40.0-80.0) 01/19/17 05:55 Lymphocytes % 30.3 % (20.0-50.0) 01/19/17 05:55 Monocytes % 8.9 % (2.0-10.0) 01/19/17 05:55 Eosinophils % 3.0 % (0.0-5.0) 01/19/17 05:55 Basophils % 0.5 % (0.0-2.0) 01/19/17 05:55 ESR 26 mm/hr (0-30) 01/14/17 06:35 PT 12.2 SECONDS (9.5-11.5) H 01/18/17 05:09 INR 1.16 (0.5-1.4) 01/18/17 05:09 PTT (Actin FS) 23.5 SECONDS (26.0-38.0) L 01/18/17 05:09 Sodium 137 mEq/L (136-145) 01/19/17 05:55 Potassium 3.5 mEq/L (3.5-5.1) 01/19/17 05:55 Chloride 103 mEq/L (98-107) 01/19/17 05:55 Carbon Dioxide 28.8 mEq/L (21.0-31.0) 01/19/17 05:55 Anion Gap 8.7 (7.0-16.0) 01/19/17 05:55 BUN 3 mg/dL (7-25) L 01/19/17 05:55 Creatinine 0.7 mg/dL (0.6-1.2) 01/19/17 05:55 Est GFR ( Amer) > 60.0 ml/min (>90) 01/19/17 05:55 Est GFR (Non-Af Amer) > 60.0 ml/min 01/19/17 05:55 BUN/Creatinine Ratio 4.3 01/19/17 05:55 Glucose 89 mg/dL (70-105) 01/19/17 05:55 Calcium 9.7 mg/dL (8.6-10.3) 01/19/17 05:55 Magnesium 1.7 mg/dL (1.9-2.7) L 01/19/17 05:55 Total Bilirubin 0.5 mg/dL (0.3-1.0) 01/19/17 05:55 Direct Bilirubin 0.11 mg/dL (0.0-0.2) 01/19/17 05:55 AST 13 U/L (13-39) 01/19/17 05:55 ALT 5 U/L (7-52) L 01/19/17 05:55 Alkaline Phosphatase 72 U/L (34-104) 01/19/17 05:55 Total Protein 6.6 gm/dL (6.0-8.3) 01/19/17 05:55 Albumin 4.3 gm/dL (3.7-5.3) 01/19/17 05:55 Globulin 2.3 gm/dL 01/19/17 05:55 Albumin/Globulin Ratio 1.9 (1.0-1.8) H 01/19/17 05:55 Lipase 12 U/L (11-82) 01/12/17 06:20 Urine Source CLEAN C 01/11/17 22:05 Urine Color YELLOW 01/11/17 22:05 Urine Clarity SLIGHT CLOUDY (CLEAR) 01/11/17 22:05 Urine pH 6.0 (4.6 - 8.0) 01/11/17 22:05 Ur Specific [place] 1.020 (1.005-1.030) 01/11/17 22:05 Urine Protein NEGATIVE mg/dL (NEGATIVE) 01/11/17 22:05 Urine Glucose (UA) NEGATIVE mg/dL (NEGATIVE) 01/11/17 22:05 Urine Ketones NEGATIVE mg/dL (NEGATIVE) 01/11/17 22:05 Urine Blood SMALL (NEGATIVE) H 01/11/17 22:05 Urine Nitrate NEGATIVE (NEGATIVE) 01/11/17 22:05 Urine Bilirubin NEGATIVE (NEGATIVE) 01/11/17 22:05 Urine Urobilinogen 0.2 E.U./dL (0.2 - 1.0) 01/11/17 22:05 Ur Leukocyte Esterase TRACE (NEGATIVE) H 01/11/17 22:05 Urine RBC 2-5 /hpf (0-5) 01/11/17 22:05 Urine WBC 2-5 /hpf (0-5) 01/11/17 22:05 Ur Epithelial Cells MODERATE /lpf (FEW) 01/11/17 22:05 Urine Bacteria FEW /hpf (NONE SEEN) 01/11/17 22:05 Urine Mucus MODERATE /lpf (FEW) 01/11/17 22:05 Urine Opiates Screen POSITIVE (NEGATIVE) H 01/12/17 21:45 Urine Methadone Screen NEGATIVE (NEGATIVE) 01/12/17 21:45 Ur Barbiturates Screen NEGATIVE (NEGATIVE) 01/12/17 21:45 Ur Tricyclics Screen NEGATIVE (NEGATIVE) 01/12/17 21:45 Ur Phencyclidine Scrn NEGATIVE (NEGATIVE) 01/12/17 21:45 Amphetamines Screen NEGATIVE (NEGATIVE) 01/12/17 21:45 U Methamphetamines Scrn NEGATIVE (NEGATIVE) 01/12/17 21:45 U Benzodiazepines Scrn POSITIVE (NEGATIVE) H 01/12/17 21:45 U Cocaine Metab Screen NEGATIVE (NEGATIVE) 01/12/17 21:45 U Cannabinoids Screen NEGATIVE (NEGATIVE) 01/12/17 21:45 - Physical Exam Vitals and I&O: Vital Signs Temp 98.7 F 01/19/17 04:00 Pulse 76 01/19/17 04:00 Resp 19 01/19/17 04:00 BP 119/67 01/19/17 04:00 Pulse Ox 100 09/29/17 04:00 Intake & Output 01/18/17 01/19/17 01/19/17 18:59 06:59 18:59 Intake Total 1103.75 1000 Balance 1103.75 1000 Weight (lbs) 51.256 kg 52.934 kg Intake: Intake, IV Amount 703.75 1000 Ciprofloxacin 200mg 100 Premix PB 200 mg In 100 ml @ 100 mls/hr IV Q12H [facility] Rx#:[id number] D5-0.45NS 1,000 ml @ 75 603.75 1000 mls/hr IV .[id number] [facility] Rx #:[id number] Oral 400 Other: # Voids 1 2 # Bowel Movements 0 Active Medications: Current Medications Hydromorphone HCl (Dilaudid) 2 mg IVP Q4HR PRN PRN Reason: Abdominal Pain Stop: 03/14/17 14:19 Last Admin: 01/19/17 03:56 Dose: 2 mg Ciprofloxacin (Cipro 200mg Premix Pb) 200 mg in 100 mls @ 100 mls/hr IV Q12H [facility] Stop: 03/13/17 02:59 Last Admin: 01/19/17 03:06 Dose: 100 mls/hr Dextrose/Sodium Chloride (D5-0.45ns) 1,000 mls @ 75 mls/hr IV .[id number] [facility] Stop: 03/13/17 02:29 Last Infusion: 01/19/17 06:32 Dose: Infused Lactobacillus Rhamnosus (Culturelle) 1 each PO DAILY [facility] Stop: 03/14/17 08:59 Last Admin: 01/18/17 10:18 Dose: Not Given Lorazepam (Ativan) 1 mg IVP Q6HR PRN; Protocol PRN Reason: Anxiety Stop: 03/15/17 15:38 Last Admin: 01/18/17 17:26 Dose: 1 mg Metoprolol Tartrate (Lopressor) 50 mg PO DAILY [facility] Stop: 03/13/17 08:59 Last Admin: 01/18/17 10:18 Dose: Not Given Miscellaneous (Probiotic Screen) 1 ea MC PRN PRN PRN Reason: PROTOCOL Stop: 03/13/17 14:20 Ondansetron HCl (Zofran) 4 mg IV Q4HR PRN PRN Reason: Nausea / Vomiting Stop: 03/13/17 02:11 Last Admin: 01/13/17 19:27 Dose: 4 mg Temazepam (Restoril) 15 mg PO HS PRN; Protocol PRN Reason: Insomnia Stop: 03/14/17 16:59 Last Admin: 01/16/17 23:37 Dose: 15 mg Assessment/Plan - Assessment Assessment: 51 YO FEMALE WITH CBD STONE AND CHOLECYSTITIS S/P ERCP AND STONE REMOVAL LFTS ARE NORMAL ALSO HAS THE FINDING OF FOREIGN OBJECT IN THE CECUM PT HAD EGD AND COLO 12/18/16 AT [facility] WITH ENDOCLIP PLACEMENT THE CT SHOWED 2 CM LINEAR OBJECT IN THE CECUM WHICH COULD CORRESPOND TO THE ENDOCLIP D/W AND HE THOUGHT PT MAY HAD FOREIGN OBJECT PRIOR TO THE PROCEDURE 1.EXP LAP AT THE TIME OF ANGIE 2.CONT SUPP CARE
[2017-01-19] MEDS ORDERED: Bupivacaine 0.5% W/Ep 10 mL Vial ONE ×2 (10:34→10:36)
[2017-01-19] MEDS ORDERED: Midazolam 1mg/ml 2 ml vial IV ONE (10:41)
[2017-01-19] MEDS ORDERED: Meperidine 50 mg/mL 1mL Syr ONE ×2 (11:02→12:12)
[2017-01-19] MEDS ORDERED: Lidocaine 2% Vial 20 mL Vial ONE (11:49)
[2017-01-19] MEDS ORDERED: Neostigmine 10mg/10mL Vial ONE (11:49)
[2017-01-19] MEDS ORDERED: Meperidine 25 mg/mL 1mL Syr IVP PRN (12:06)
--- NOTE | 2017-01-19 12:10 | Operative Report ---
DATE OF SURGERY: 01/19/2017 PREOPERATIVE DIAGNOSES: 1. Calculous cholecystitis. 2. Status post removal of common duct stones via ERCP. 3. History of multiple drug abuse. 4. Hypertension. 5. Multiple previous surgeries, including hysterectomy, appendectomy, and oophorectomy. 6. Removal of a large common duct stone via ERCP yesterday was emphasized to the patient prior to this operation. Because of multiple previous surgeries, likelihood of open surgery is high. OPERATION DONE: Open cholecystectomy and lysis of dense adhesions. SURGEON: Peyman Woods M.D. TELECOMMUNICATIONS ENGINEER: Dr. Damon. ANESTHESIA: General. ANESTHESIOLOGIST: Suresh Kuo M.D. ESTIMATED BLOOD LOSS: 20 mL. DESCRIPTION OF PROCEDURE: The patient was given general anesthesia. The abdomen was prepped with ChloraPrep and draped in appropriate manner. An incision was made above the umbilicus at the previous site of surgery. The incision was carried through to the fascia and the peritoneum. On entering the cavity; however, there were dense adhesions and attempt to put Belkys trocar was not possible. This converted to open immediately with incision carried more superiorly. The adhesions were removed bluntly and sharply until the liver and gallbladder was identified. Retractor was applied. The gallbladder was grasped, which contained multiple stones and the serosa was dissected away from the gallbladder itself leaving the serosa on the liver bed. Bleeders were treated with clip applications. Dissection was carried out inferiorly until the cystic duct identified. This was clamped, divided, and ligated with 2-0 silk. The rest of the infundibulum was transected utilizing a right angle clamp, but again ligated with 2-0 silk. Following satisfactory hemostasis, Evista was applied into the liver bed. Renard-King drain was left in the subhepatic space. The incision was closed with running suture of #1 PDS for the fascia and the skin was closed with subcuticular suture of 4-0 Vicryl. The patient tolerated the procedure well. [facility]# [id number]
[2017-01-19] MEDS ORDERED: Lactated Ringer 1,000 ML IV SCH (12:15)
[2017-01-19] MEDS: Lactobacillus Rhamnosus 10 Billion CFU Capsule PO SCH (14:20)
[2017-01-19] MEDS: D5-0.45NS 1,000 ML IV SCH (14:52)
[2017-01-20] MEDS: Ciprofloxacin 200mg Premix PB 200 MG/100 ML BAG IV SCH ×2 (02:14→15:30)
[2017-01-20] MEDS: HYDROmorphone 2 mg/mL 1mL Vial IVP PRN ×5 (03:47→21:10)
[2017-01-20] MEDS: Acetaminophen 500 MG TAB PO PRN ×3 (04:37→23:00)
[2017-01-20 06:02] LABS: RED CELL DISTRIBUTION WIDTH 11.4 % (11.5-20.0)
[2017-01-20 06:15] LABS: HEMATOCRIT 34.8 % (41.0-60); HEMOGLOBIN 12.4 gm/dL (12-16); MEAN CELL VOLUME 93.2 fl (81-100); MEAN CORPUSCULAR HEMOGLOBIN 33.2 pg (27.0-31.0); MEAN CORPUSCULAR HGB CONC 35.6 pg (28.0-36.0); MEAN PLATELET VOLUME 8.8 fl; PLATELET COUNT 269 Th/cmm (150-400); RED BLOOD COUNT 3.73 Mil/cmm (3.80-5.10)
[2017-01-20 06:17] LABS: ALB/GLOB RATIO 1.4 (1.0-1.8); ALKALINE PHOSPHATASE 61 U/L (34-104); ANION GAP 9.1 (7.0-16.0); BILIRUBIN,TOTAL 0.7 mg/dL (0.3-1.0); BUN - UREA NITROGEN 3 mg/dL (7-25); CALCIUM SERUM 8.8 mg/dL (8.6-10.3); CARBON DIOXIDE 28.8 mEq/L (21.0-31.0); CHLORIDE 97 mEq/L (98-107); CREATININE - SERUM 0.6 mg/dL (0.6-1.2); GLUCOSE 140 mg/dL (70-105); MAGNESIUM 1.3 mg/dL (1.9-2.7); POTASSIUM SERUM 3.9 mEq/L (3.5-5.1); SGOT 26 U/L (13-39); SGPT/ALT 11 U/L (7-52); SODIUM SERUM 131 mEq/L (136-145)
[2017-01-20 06:29] LABS: WHITE BLOOD COUNT 15.8 Th/cmm (4.8-10.8)
[2017-01-20 07:02] LABS: BAND NEUTROPHILE 2 % (0-10); NEUTROPHILS 85 % (40-80); TOTAL CELLS COUNTED 100
[2017-01-20] MEDS: Lactobacillus Rhamnosus 10 Billion CFU Capsule PO SCH (08:18)
--- NOTE | 2017-01-20 08:38 | GI Progress Note ---
Subjective - Review of Systems Subjective: S/P ERCP WITH STONE REMOVAL S/P ANGIE Objective - Results Result Diagrams: 01/20/17 05:09 01/20/17 05:09 Recent Labs: Laboratory Last Values WBC 15.8 Th/cmm (4.8-10.8) H D 01/20/17 05:09 RBC 3.73 Mil/cmm (3.80-5.10) L 01/20/17 05:09 Hgb 12.4 gm/dL (12-16) 01/20/17 05:09 Hct 34.8 % (41.0-60) L 01/20/17 05:09 MCV 93.2 fl (81-100) 01/20/17 05:09 MCH 33.2 pg (27.0-31.0) H 01/20/17 05:09 MCHC Differential 35.6 pg (28.0-36.0) 01/20/17 05:09 RDW 11.4 % (11.5-20.0) L 01/20/17 05:09 Plt Count 269 Th/cmm (150-400) 01/20/17 05:09 MPV 8.8 fl 01/20/17 05:09 Neutrophils % 57.3 % (40.0-80.0) 01/19/17 05:55 Band Neutrophils % 2 % (0-10) 01/20/17 05:09 Lymphocytes % 30.3 % (20.0-50.0) 01/19/17 05:55 Monocytes % 8.9 % (2.0-10.0) 01/19/17 05:55 Eosinophils % 3.0 % (0.0-5.0) 01/19/17 05:55 Basophils % 0.5 % (0.0-2.0) 01/19/17 05:55 Neutrophils (Manual) 85 % (40-80) H 01/20/17 05:09 Lymphocytes 8 % (20-50) L 01/20/17 05:09 Monocytes 5 % (2-10) 01/20/17 05:09 ESR 26 mm/hr (0-30) 01/14/17 06:35 PT 12.2 SECONDS (9.5-11.5) H 01/18/17 05:09 INR 1.16 (0.5-1.4) 01/18/17 05:09 PTT (Actin FS) 23.5 SECONDS (26.0-38.0) L 01/18/17 05:09 Sodium 131 mEq/L (136-145) L 01/20/17 05:09 Potassium 3.9 mEq/L (3.5-5.1) 01/20/17 05:09 Chloride 97 mEq/L (98-107) L 01/20/17 05:09 Carbon Dioxide 28.8 mEq/L (21.0-31.0) 01/20/17 05:09 Anion Gap 9.1 (7.0-16.0) 01/20/17 05:09 BUN 3 mg/dL (7-25) L 01/20/17 05:09 Creatinine 0.6 mg/dL (0.6-1.2) 01/20/17 05:09 Est GFR ( Amer) > 60.0 ml/min (>90) 01/20/17 05:09 Est GFR (Non-Af Amer) > 60.0 ml/min 01/20/17 05:09 BUN/Creatinine Ratio 5.0 01/20/17 05:09 Glucose 140 mg/dL (70-105) H 01/20/17 05:09 POC Glucose 85 MG/DL (70 - 105) 01/19/17 08:33 Calcium 8.8 mg/dL (8.6-10.3) 01/20/17 05:09 Magnesium 1.3 mg/dL (1.9-2.7) L 01/20/17 05:09 Total Bilirubin 0.7 mg/dL (0.3-1.0) 01/20/17 05:09 Direct Bilirubin 0.11 mg/dL (0.0-0.2) 01/19/17 05:55 AST 26 U/L (13-39) 01/20/17 05:09 ALT 11 U/L (7-52) 01/20/17 05:09 Alkaline Phosphatase 61 U/L (34-104) 01/20/17 05:09 Total Protein 6.2 gm/dL (6.0-8.3) 01/20/17 05:09 Albumin 3.6 gm/dL (3.7-5.3) L 01/20/17 05:09 Globulin 2.6 gm/dL 01/20/17 05:09 Albumin/Globulin Ratio 1.4 (1.0-1.8) 01/20/17 05:09 Lipase 12 U/L (11-82) 01/12/17 06:20 Urine Source CLEAN C 01/11/17 22:05 Urine Color YELLOW 01/11/17 22:05 Urine Clarity SLIGHT CLOUDY (CLEAR) 01/11/17 22:05 Urine pH 6.0 (4.6 - 8.0) 01/11/17 22:05 Ur Specific [place] 1.020 (1.005-1.030) 01/11/17 22:05 Urine Protein NEGATIVE mg/dL (NEGATIVE) 01/11/17 22:05 Urine Glucose (UA) NEGATIVE mg/dL (NEGATIVE) 01/11/17 22:05 Urine Ketones NEGATIVE mg/dL (NEGATIVE) 01/11/17 22:05 Urine Blood SMALL (NEGATIVE) H 01/11/17 22:05 Urine Nitrate NEGATIVE (NEGATIVE) 01/11/17 22:05 Urine Bilirubin NEGATIVE (NEGATIVE) 01/11/17 22:05 Urine Urobilinogen 0.2 E.U./dL (0.2 - 1.0) 01/11/17 22:05 Ur Leukocyte Esterase TRACE (NEGATIVE) H 01/11/17 22:05 Urine RBC 2-5 /hpf (0-5) 01/11/17 22:05 Urine WBC 2-5 /hpf (0-5) 01/11/17 22:05 Ur Epithelial Cells MODERATE /lpf (FEW) 01/11/17 22:05 Urine Bacteria FEW /hpf (NONE SEEN) 01/11/17 22:05 Urine Mucus MODERATE /lpf (FEW) 01/11/17 22:05 Urine Opiates Screen POSITIVE (NEGATIVE) H 01/12/17 21:45 Urine Methadone Screen NEGATIVE (NEGATIVE) 01/12/17 21:45 Ur Barbiturates Screen NEGATIVE (NEGATIVE) 01/12/17 21:45 Ur Tricyclics Screen NEGATIVE (NEGATIVE) 01/12/17 21:45 Ur Phencyclidine Scrn NEGATIVE (NEGATIVE) 01/12/17 21:45 Amphetamines Screen NEGATIVE (NEGATIVE) 01/12/17 21:45 U Methamphetamines Scrn NEGATIVE (NEGATIVE) 01/12/17 21:45 U Benzodiazepines Scrn POSITIVE (NEGATIVE) H 01/12/17 21:45 U Cocaine Metab Screen NEGATIVE (NEGATIVE) 01/12/17 21:45 U Cannabinoids Screen NEGATIVE (NEGATIVE) 01/12/17 21:45 - Physical Exam Vitals and I&O: Vital Signs Temp 100.7 F 01/20/17 07:29 Pulse 77 01/20/17 08:18 Resp 18 01/20/17 07:29 BP 136/80 01/20/17 08:18 Pulse Ox 95 01/20/17 07:29 Intake & Output 01/19/17 01/20/17 01/20/17 18:59 06:59 18:59 Intake Total 100 250 Output Total 30 Balance 100 220 Weight (lbs) 52.481 kg Intake: Intake, IV Amount 100 100 Ciprofloxacin 200mg 100 100 Premix PB 200 mg In 100 ml @ 100 mls/hr IV Q12H [facility] Rx#:[id number] Oral 150 Output: Drainage 30 Left Abdomen 30 Other: # Voids 3 Active Medications: Current Medications Acetaminophen (Tylenol Extra Strength) 500 mg PO Q6H PRN PRN Reason: Fever >101 Stop: 03/21/17 02:00 Last Admin: 01/20/17 04:37 Dose: 500 mg Hydromorphone HCl (Dilaudid) 2 mg IVP Q4HR PRN PRN Reason: Abdominal Pain Stop: 03/14/17 14:19 Last Admin: 01/20/17 08:18 Dose: 2 mg Ciprofloxacin (Cipro 200mg Premix Pb) 200 mg in 100 mls @ 100 mls/hr IV Q12H EB Stop: 03/13/17 02:59 Last Infusion: 01/20/17 03:18 Dose: Infused Dextrose/Sodium Chloride (D5-0.45ns) 1,000 mls @ 75 mls/hr IV .[id number] EB Stop: 03/13/17 02:29 Last Admin: 01/19/17 14:52 Dose: 75 mls/hr Lactated Ringer's (Lactated Ringer) 1,000 mls @ 0 mls/hr IV .Q0M EB PRN Reason: TKO Stop: 01/20/17 12:14 Lactobacillus Rhamnosus (Culturelle) 1 each PO DAILY EB Stop: 03/14/17 08:59 Last Admin: 01/20/17 08:18 Dose: 1 each Lorazepam (Ativan) 1 mg IVP Q6HR PRN; Protocol PRN Reason: Anxiety Stop: 03/15/17 15:38 Last Admin: 01/19/17 20:54 Dose: 1 mg Meperidine HCl (Demerol) 12.5 mg IVP UD PRN PRN Reason: POST-OP PAIN Stop: 01/20/17 12:05 Metoprolol Tartrate (Lopressor) 50 mg PO DAILY EB Stop: 03/13/17 08:59 Last Admin: 01/20/17 08:18 Dose: 50 mg Miscellaneous (Probiotic Screen) 1 ea MC PRN PRN PRN Reason: PROTOCOL Stop: 03/13/17 14:20 Ondansetron HCl (Zofran) 4 mg IV Q4HR PRN PRN Reason: Nausea / Vomiting Stop: 03/13/17 02:11 Last Admin: 01/13/17 19:27 Dose: 4 mg Ondansetron HCl (Zofran) 4 mg IV UD PRN PRN Reason: Nausea / Vomiting Stop: 01/20/17 12:05 Temazepam (Restoril) 15 mg PO HS PRN; Protocol PRN Reason: Insomnia Stop: 03/14/17 16:59 Last Admin: 01/16/17 23:37 Dose: 15 mg - Procedures Procedures: Procedures Procedure Code Date ERCP REMOVE DUCT CALCULI 43285 01/12/17 EXTIRPATION OF MATTER FROM COMMON BILE DUCT, ENDO [id number] 01/12/17 Assessment/Plan - Assessment Assessment: 51 YO FEMALE WITH CBD STONE AND CHOLECYSTITIS S/P ERCP AND STONE REMOVAL S/P ANGIE LFTS ARE NORMAL ALSO HAS THE FINDING OF FOREIGN OBJECT IN THE CECUM PT HAD EGD AND COLO 12/18/16 AT [facility] WITH ENDOCLIP PLACEMENT THE CT SHOWED 2 CM LINEAR OBJECT IN THE CECUM WHICH COULD CORRESPOND TO THE ENDOCLIP D/W AND HE THOUGHT PT MAY HAD FOREIGN OBJECT PRIOR TO THE PROCEDURE 1.CONT POST OP CARE 2.CONSIDER KUB IN 1 MONTH TO EVALUATE FOR ENDOCLIP PASSAGE
--- NOTE | 2017-01-20 11:20 | General Progress Note ---
Subjective - Review of Systems Service Date: 01/20/17 Events since last encounter: labs noted JAGJIT drain last night 100 cc start low fat diet Objective - Results Result Diagrams: 01/20/17 05:09 01/20/17 05:09 Recent Labs: Laboratory Last Values WBC 15.8 Th/cmm (4.8-10.8) H D 01/20/17 05:09 RBC 3.73 Mil/cmm (3.80-5.10) L 01/20/17 05:09 Hgb 12.4 gm/dL (12-16) 01/20/17 05:09 Hct 34.8 % (41.0-60) L 01/20/17 05:09 MCV 93.2 fl (81-100) 01/20/17 05:09 MCH 33.2 pg (27.0-31.0) H 01/20/17 05:09 MCHC Differential 35.6 pg (28.0-36.0) 01/20/17 05:09 RDW 11.4 % (11.5-20.0) L 01/20/17 05:09 Plt Count 269 Th/cmm (150-400) 01/20/17 05:09 MPV 8.8 fl 01/20/17 05:09 Neutrophils % 57.3 % (40.0-80.0) 01/19/17 05:55 Band Neutrophils % 2 % (0-10) 01/20/17 05:09 Lymphocytes % 30.3 % (20.0-50.0) 01/19/17 05:55 Monocytes % 8.9 % (2.0-10.0) 01/19/17 05:55 Eosinophils % 3.0 % (0.0-5.0) 01/19/17 05:55 Basophils % 0.5 % (0.0-2.0) 01/19/17 05:55 Neutrophils (Manual) 85 % (40-80) H 01/20/17 05:09 Lymphocytes 8 % (20-50) L 01/20/17 05:09 Monocytes 5 % (2-10) 01/20/17 05:09 ESR 26 mm/hr (0-30) 01/14/17 06:35 PT 12.2 SECONDS (9.5-11.5) H 01/18/17 05:09 INR 1.16 (0.5-1.4) 01/18/17 05:09 PTT (Actin FS) 23.5 SECONDS (26.0-38.0) L 01/18/17 05:09 Sodium 131 mEq/L (136-145) L 01/20/17 05:09 Potassium 3.9 mEq/L (3.5-5.1) 01/20/17 05:09 Chloride 97 mEq/L (98-107) L 01/20/17 05:09 Carbon Dioxide 28.8 mEq/L (21.0-31.0) 01/20/17 05:09 Anion Gap 9.1 (7.0-16.0) 01/20/17 05:09 BUN 3 mg/dL (7-25) L 01/20/17 05:09 Creatinine 0.6 mg/dL (0.6-1.2) 01/20/17 05:09 Est GFR ( Amer) > 60.0 ml/min (>90) 01/20/17 05:09 Est GFR (Non-Af Amer) > 60.0 ml/min 01/20/17 05:09 BUN/Creatinine Ratio 5.0 01/20/17 05:09 Glucose 140 mg/dL (70-105) H 01/20/17 05:09 POC Glucose 85 MG/DL (70 - 105) 01/19/17 08:33 Calcium 8.8 mg/dL (8.6-10.3) 01/20/17 05:09 Magnesium 1.3 mg/dL (1.9-2.7) L 01/20/17 05:09 Total Bilirubin 0.7 mg/dL (0.3-1.0) 01/20/17 05:09 Direct Bilirubin 0.11 mg/dL (0.0-0.2) 01/19/17 05:55 AST 26 U/L (13-39) 01/20/17 05:09 ALT 11 U/L (7-52) 01/20/17 05:09 Alkaline Phosphatase 61 U/L (34-104) 01/20/17 05:09 Total Protein 6.2 gm/dL (6.0-8.3) 01/20/17 05:09 Albumin 3.6 gm/dL (3.7-5.3) L 01/20/17 05:09 Globulin 2.6 gm/dL 01/20/17 05:09 Albumin/Globulin Ratio 1.4 (1.0-1.8) 01/20/17 05:09 Lipase 12 U/L (11-82) 01/12/17 06:20 Urine Source CLEAN C 01/11/17 22:05 Urine Color YELLOW 01/11/17 22:05 Urine Clarity SLIGHT CLOUDY (CLEAR) 01/11/17 22:05 Urine pH 6.0 (4.6 - 8.0) 01/11/17 22:05 Ur Specific [place] 1.020 (1.005-1.030) 01/11/17 22:05 Urine Protein NEGATIVE mg/dL (NEGATIVE) 01/11/17 22:05 Urine Glucose (UA) NEGATIVE mg/dL (NEGATIVE) 01/11/17 22:05 Urine Ketones NEGATIVE mg/dL (NEGATIVE) 01/11/17 22:05 Urine Blood SMALL (NEGATIVE) H 01/11/17 22:05 Urine Nitrate NEGATIVE (NEGATIVE) 01/11/17 22:05 Urine Bilirubin NEGATIVE (NEGATIVE) 01/11/17 22:05 Urine Urobilinogen 0.2 E.U./dL (0.2 - 1.0) 01/11/17 22:05 Ur Leukocyte Esterase TRACE (NEGATIVE) H 01/11/17 22:05 Urine RBC 2-5 /hpf (0-5) 01/11/17 22:05 Urine WBC 2-5 /hpf (0-5) 01/11/17 22:05 Ur Epithelial Cells MODERATE /lpf (FEW) 01/11/17 22:05 Urine Bacteria FEW /hpf (NONE SEEN) 01/11/17 22:05 Urine Mucus MODERATE /lpf (FEW) 01/11/17 22:05 Urine Opiates Screen POSITIVE (NEGATIVE) H 01/12/17 21:45 Urine Methadone Screen NEGATIVE (NEGATIVE) 01/12/17 21:45 Ur Barbiturates Screen NEGATIVE (NEGATIVE) 01/12/17 21:45 Ur Tricyclics Screen NEGATIVE (NEGATIVE) 01/12/17 21:45 Ur Phencyclidine Scrn NEGATIVE (NEGATIVE) 01/12/17 21:45 Amphetamines Screen NEGATIVE (NEGATIVE) 01/12/17 21:45 U Methamphetamines Scrn NEGATIVE (NEGATIVE) 01/12/17 21:45 U Benzodiazepines Scrn POSITIVE (NEGATIVE) H 01/12/17 21:45 U Cocaine Metab Screen NEGATIVE (NEGATIVE) 01/12/17 21:45 U Cannabinoids Screen NEGATIVE (NEGATIVE) 01/12/17 21:45 - Physical Exam Vitals and I&O: Vital Signs Temp 100.7 F 01/20/17 07:29 Pulse 77 01/20/17 08:18 Resp 18 01/20/17 07:29 BP 136/80 01/20/17 08:18 Pulse Ox 95 01/20/17 07:29 Intake & Output 01/19/17 01/20/17 01/20/17 18:59 06:59 18:59 Intake Total 100 250 Output Total 30 Balance 100 220 Weight (lbs) 52.481 kg Intake: Intake, IV Amount 100 100 Ciprofloxacin 200mg 100 100 Premix PB 200 mg In 100 ml @ 100 mls/hr IV Q12H [facility] Rx#:[id number] Oral 150 Output: Drainage 30 Left Abdomen 30 Other: # Voids 3 Active Medications: Current Medications Acetaminophen (Tylenol Extra Strength) 500 mg PO Q6H PRN PRN Reason: Fever >101 Stop: 03/21/17 02:00 Last Admin: 01/20/17 04:37 Dose: 500 mg Hydromorphone HCl (Dilaudid) 2 mg IVP Q4HR PRN PRN Reason: Abdominal Pain Stop: 03/14/17 14:19 Last Admin: 01/20/17 08:18 Dose: 2 mg Ciprofloxacin (Cipro 200mg Premix Pb) 200 mg in 100 mls @ 100 mls/hr IV Q12H EB Stop: 03/13/17 02:59 Last Infusion: 01/20/17 03:18 Dose: Infused Dextrose/Sodium Chloride (D5-0.45ns) 1,000 mls @ 75 mls/hr IV .[id number] EB Stop: 03/13/17 02:29 Last Admin: 01/19/17 14:52 Dose: 75 mls/hr Lactated Ringer's (Lactated Ringer) 1,000 mls @ 0 mls/hr IV .Q0M EB PRN Reason: TKO Stop: 01/20/17 12:14 Magnesium Sulfate 3 gm/ Sodium (Chloride) 56 mls @ 52 mls/hr IV X1 ONE Stop: 01/20/17 11:58 Lactobacillus Rhamnosus (Culturelle) 1 each PO DAILY EB Stop: 03/14/17 08:59 Last Admin: 01/20/17 08:18 Dose: 1 each Lorazepam (Ativan) 1 mg IVP Q6HR PRN; Protocol PRN Reason: Anxiety Stop: 03/15/17 15:38 Last Admin: 01/19/17 20:54 Dose: 1 mg Meperidine HCl (Demerol) 12.5 mg IVP UD PRN PRN Reason: POST-OP PAIN Stop: 01/20/17 12:05 Metoprolol Tartrate (Lopressor) 50 mg PO DAILY EB Stop: 03/13/17 08:59 Last Admin: 01/20/17 08:18 Dose: 50 mg Metronidazole (Flagyl) 500 mg PO Q8H EB Stop: 03/21/17 10:59 Miscellaneous (Probiotic Screen) 1 ea MC PRN PRN PRN Reason: PROTOCOL Stop: 03/13/17 14:20 Ondansetron HCl (Zofran) 4 mg IV Q4HR PRN PRN Reason: Nausea / Vomiting Stop: 03/13/17 02:11 Last Admin: 01/13/17 19:27 Dose: 4 mg Ondansetron HCl (Zofran) 4 mg IV UD PRN PRN Reason: Nausea / Vomiting Stop: 01/20/17 12:05 Temazepam (Restoril) 15 mg PO HS PRN; Protocol PRN Reason: Insomnia Stop: 03/14/17 16:59 Last Admin: 01/16/17 23:37 Dose: 15 mg - Procedures Procedures: Procedures Procedure Code Date ERCP REMOVE DUCT CALCULI 21119 01/12/17 EXTIRPATION OF MATTER FROM COMMON BILE DUCT, ENDO [id number] 01/12/17 Nutritional Asmnt/Malnutr-PDOC - Dietary Evaluation Malnutrition Findings (Please click <Entered> for more info): Nutritional Asmnt/Malnutrition Start: 01/17/17 12: 31 Text: Status: Complete Freq: Document 01/17/17 12:31 GSUN (Rec: 01/17/17 12:50 [email or web address] [email or web address]) Nutritional Asmnt/Malnutrition Patient General Information Nutritional Screening Moderate Risk Screening Diagnosis Acute cholecystitis with common bile duct steon, UTI Pertinent Medical Hx/Surgical Hx HTN Subjective Information 51 year old female. Pt was awake on her phone and ipad, however slow speech and appeared a questionable historian. Pt has been NPO or on clear liquid since adm, 25% intake when on clears, inadequate nutrition intake day 5, meeting less than 10% estimated lower end kcal needs . Pt reported currently no appetite due to pain and hospitalization, otherwise normally fair appetite. Spoke to RODERICK Watson regarding plan of care vs advancing diet, RN stated pending possible procedures. CT KUB and ultrasound showing stone and foreign body. Adm weight 105lb , pt reported 102lb prior to adm, questionable CBW 112.3lb in EMR. Pt with mild wasting to chest. Teeth intact. No food allergies. Current Diet Order/ Nutrition Support Clear liquid Pertinent Medications D5-0.45ns, Dilaudid, Culturelle, Magnesium Sulfate, Zofran Pertinent Labs Reviewed. Nutritional Hx/Data Height 1.55 m Height (Calculated Centimeters) 154.9 Current Weight (lbs) 50.938 kg Weight (Calculated Kilograms) 50.9 Weight (Calculated Grams) 60933.4 Usual body Weight (lbs) 102 [place] Body Weight 105 Recent Weight Change No Weight Status Approriate GI Symptoms Cultural/Ethnic/Scientology Belief Dislike frozen fish, only likes fresh grilled fish. Skin Integrity/Comment: [place] 21. Skin intact. Current %PO Negligible < 25% Estimated Nutritional Goals Calories/Kcals/Kg 105lb/47.7kg (adm weight, closer to pt report CBW 102lb) Kcals Calculated 1193-1431kcal (25-30kcal/kg) Protein Calculated 48g (1g/kg) Fluid: ml 1193-1431ml (1ml/kcal) Nutritional Problem 1. Problem Problem Inadequate oral food beevrage intake related to Etiology diet order, poor appetite due to abdominap pain aeb Signs/Symptoms: NPO or clear since dam day 5, tolerating 25% of clears Intervention/Recommendation Comments 1. Recommend Boost Breeze TID while pt is on clear liquid diet to provide additional kcal and prot to better meen nutritional needs. Pt has been NPO or on clears day 5, poor appetite tolerating 25% of clears, meeting <10% estimated kcal needs. Inadequate nutrition intake. 2. When medically feasible to resume oral diet, recommend low fat diet if cholecystitis. Expected Outcomes/Goals Expected Outcomes/Goals 1. PO intake to reumse oral diet and meet at least 75% of estimated nutritinoal needs.
[2017-01-20 11:37] LABS: RED CELL DISTRIBUTION WIDTH 11.4 % (11.5-20.0)
[2017-01-20 11:41] LABS: HEMATOCRIT 34.4 % (41.0-60); HEMOGLOBIN 11.8 gm/dL (12-16); MEAN CELL VOLUME 92.6 fl (81-100); MEAN CORPUSCULAR HEMOGLOBIN 31.7 pg (27.0-31.0); MEAN CORPUSCULAR HGB CONC 34.3 pg (28.0-36.0); MEAN PLATELET VOLUME 8.2 fl; PLATELET COUNT 310 Th/cmm (150-400); RED BLOOD COUNT 3.71 Mil/cmm (3.80-5.10)
[2017-01-20 11:44] LABS: WHITE BLOOD COUNT 15.3 Th/cmm (4.8-10.8)
[2017-01-20 11:46] LABS: TOTAL CELLS COUNTED 100
[2017-01-20] MEDS: D5-0.45NS 1,000 ML IV SCH ×2 (11:46→12:23)
[2017-01-20 12:00] LABS: ALB/GLOB RATIO 1.4 (1.0-1.8); BILIRUBIN,DIRECT 0.19 mg/dL (0.0-0.2); BILIRUBIN,TOTAL 0.8 mg/dL (0.3-1.0)
[2017-01-20 12:03] LABS: BAND NEUTROPHILE 2 % (0-10); NEUTROPHILS 80 % (40-80)
[2017-01-20] MEDS: D5-0.9%NS 1,000 ML IV SCH (13:54)
[2017-01-21] MEDS: HYDROmorphone 2 mg/mL 1mL Vial IVP PRN ×6 (01:35→21:52)
[2017-01-21] MEDS: Ciprofloxacin 200mg Premix PB 200 MG/100 ML BAG IV SCH ×2 (02:55→14:54)
[2017-01-21] MEDS: D5-0.9%NS 1,000 ML IV SCH ×2 (06:01→21:55)
[2017-01-21 06:51] LABS: HEMATOCRIT 31.1 % (41.0-60); HEMOGLOBIN 10.6 gm/dL (12-16); MEAN CELL VOLUME 92.1 fl (81-100); MEAN CORPUSCULAR HEMOGLOBIN 31.3 pg (27.0-31.0); MEAN PLATELET VOLUME 9.3 fl; PLATELET COUNT 180 Th/cmm (150-400); RED BLOOD COUNT 3.38 Mil/cmm (3.80-5.10); RED CELL DISTRIBUTION WIDTH 11.7 % (11.5-20.0)
[2017-01-21 06:56] LABS: WHITE BLOOD COUNT 12.4 Th/cmm (4.8-10.8)
[2017-01-21 07:19] LABS: NEUTROPHILS 84 % (40-80); TOTAL CELLS COUNTED 100
[2017-01-21 07:20] LABS: EOSINOPHIL 3 % (0-5)
[2017-01-21] MEDS: Acetaminophen 500 MG TAB PO PRN (07:33)
[2017-01-21 07:52] LABS: ANION GAP 6.5 (7.0-16.0); BUN - UREA NITROGEN 5 mg/dL (7-25); BUN/CREATININE RATIO 8.3; CALCIUM SERUM 8.5 mg/dL (8.6-10.3); CARBON DIOXIDE 29.2 mEq/L (21.0-31.0); CHLORIDE 102 mEq/L (98-107); CREATININE - SERUM 0.6 mg/dL (0.6-1.2); GLUCOSE 119 mg/dL (70-105); MAGNESIUM 1.7 mg/dL (1.9-2.7); POTASSIUM SERUM 3.7 mEq/L (3.5-5.1); SODIUM SERUM 134 mEq/L (136-145)
[2017-01-21] MEDS: Lactobacillus Rhamnosus 10 Billion CFU Capsule PO SCH (09:11)
--- NOTE | 2017-01-21 09:15 | GI Progress Note ---
Subjective - Review of Systems Subjective: S/P ERCP WITH STONE REMOVAL S/P ANGIE C/O ABD PAIN Objective - Results Result Diagrams: 01/21/17 05:30 01/21/17 07:25 Recent Labs: Laboratory Last Values WBC 12.4 Th/cmm (4.8-10.8) H 01/21/17 05:30 RBC 3.38 Mil/cmm (3.80-5.10) L 01/21/17 05:30 Hgb 10.6 gm/dL (12-16) L 01/21/17 05:30 Hct 31.1 % (41.0-60) L 01/21/17 05:30 MCV 92.1 fl (81-100) 01/21/17 05:30 MCH 31.3 pg (27.0-31.0) H 01/21/17 05:30 MCHC Differential 34.0 pg (28.0-36.0) 01/21/17 05:30 RDW 11.7 % (11.5-20.0) 01/21/17 05:30 Plt Count 180 Th/cmm (150-400) D 01/21/17 05:30 MPV 9.3 fl 01/21/17 05:30 Neutrophils % 57.3 % (40.0-80.0) 01/19/17 05:55 Band Neutrophils % 2 % (0-10) 01/20/17 11:25 Lymphocytes % 30.3 % (20.0-50.0) 01/19/17 05:55 Monocytes % 8.9 % (2.0-10.0) 01/19/17 05:55 Eosinophils % 3.0 % (0.0-5.0) 01/19/17 05:55 Basophils % 0.5 % (0.0-2.0) 01/19/17 05:55 Neutrophils (Manual) 84 % (40-80) H 01/21/17 05:30 Lymphocytes 11 % (20-50) L 01/21/17 05:30 Monocytes 2 % (2-10) 01/21/17 05:30 Eosinophils 3 % (0-5) 01/21/17 05:30 ESR 26 mm/hr (0-30) 01/14/17 06:35 PT 12.2 SECONDS (9.5-11.5) H 01/18/17 05:09 INR 1.16 (0.5-1.4) 01/18/17 05:09 PTT (Actin FS) 23.5 SECONDS (26.0-38.0) L 01/18/17 05:09 Sodium 134 mEq/L (136-145) L 01/21/17 07:25 Potassium 3.7 mEq/L (3.5-5.1) 01/21/17 07:25 Chloride 102 mEq/L (98-107) 01/21/17 07:25 Carbon Dioxide 29.2 mEq/L (21.0-31.0) 01/21/17 07:25 Anion Gap 6.5 (7.0-16.0) L 01/21/17 07:25 BUN 5 mg/dL (7-25) L 01/21/17 07:25 Creatinine 0.6 mg/dL (0.6-1.2) 01/21/17 07:25 Est GFR ( Amer) > 60.0 ml/min (>90) 01/21/17 07:25 Est GFR (Non-Af Amer) > 60.0 ml/min 01/21/17 07:25 BUN/Creatinine Ratio 8.3 01/21/17 07:25 Glucose 119 mg/dL (70-105) H 01/21/17 07:25 POC Glucose 85 MG/DL (70 - 105) 01/19/17 08:33 Calcium 8.5 mg/dL (8.6-10.3) L 01/21/17 07:25 Magnesium 1.7 mg/dL (1.9-2.7) L 01/21/17 07:25 Total Bilirubin 0.8 mg/dL (0.3-1.0) 01/20/17 11:25 Direct Bilirubin 0.19 mg/dL (0.0-0.2) 01/20/17 11:25 AST 20 U/L (13-39) 01/20/17 11:25 ALT 10 U/L (7-52) 01/20/17 11:25 Alkaline Phosphatase 59 U/L (34-104) 01/20/17 11:25 Total Protein 6.1 gm/dL (6.0-8.3) 01/20/17 11:25 Albumin 3.5 gm/dL (3.7-5.3) L 01/20/17 11:25 Globulin 2.6 gm/dL 01/20/17 11:25 Albumin/Globulin Ratio 1.4 (1.0-1.8) 01/20/17 11:25 Lipase 12 U/L (11-82) 01/12/17 06:20 Urine Source CLEAN C 01/11/17 22:05 Urine Color YELLOW 01/11/17 22:05 Urine Clarity SLIGHT CLOUDY (CLEAR) 01/11/17 22:05 Urine pH 6.0 (4.6 - 8.0) 01/11/17 22:05 Ur Specific [place] 1.020 (1.005-1.030) 01/11/17 22:05 Urine Protein NEGATIVE mg/dL (NEGATIVE) 01/11/17 22:05 Urine Glucose (UA) NEGATIVE mg/dL (NEGATIVE) 01/11/17 22:05 Urine Ketones NEGATIVE mg/dL (NEGATIVE) 01/11/17 22:05 Urine Blood SMALL (NEGATIVE) H 01/11/17 22:05 Urine Nitrate NEGATIVE (NEGATIVE) 01/11/17 22:05 Urine Bilirubin NEGATIVE (NEGATIVE) 01/11/17 22:05 Urine Urobilinogen 0.2 E.U./dL (0.2 - 1.0) 01/11/17 22:05 Ur Leukocyte Esterase TRACE (NEGATIVE) H 01/11/17 22:05 Urine RBC 2-5 /hpf (0-5) 01/11/17 22:05 Urine WBC 2-5 /hpf (0-5) 01/11/17 22:05 Ur Epithelial Cells MODERATE /lpf (FEW) 01/11/17 22:05 Urine Bacteria FEW /hpf (NONE SEEN) 01/11/17 22:05 Urine Mucus MODERATE /lpf (FEW) 01/11/17 22:05 Urine Opiates Screen POSITIVE (NEGATIVE) H 01/12/17 21:45 Urine Methadone Screen NEGATIVE (NEGATIVE) 01/12/17 21:45 Ur Barbiturates Screen NEGATIVE (NEGATIVE) 01/12/17 21:45 Ur Tricyclics Screen NEGATIVE (NEGATIVE) 01/12/17 21:45 Ur Phencyclidine Scrn NEGATIVE (NEGATIVE) 01/12/17 21:45 Amphetamines Screen NEGATIVE (NEGATIVE) 01/12/17 21:45 U Methamphetamines Scrn NEGATIVE (NEGATIVE) 01/12/17 21:45 U Benzodiazepines Scrn POSITIVE (NEGATIVE) H 01/12/17 21:45 U Cocaine Metab Screen NEGATIVE (NEGATIVE) 01/12/17 21:45 U Cannabinoids Screen NEGATIVE (NEGATIVE) 01/12/17 21:45 - Physical Exam Vitals and I&O: Vital Signs Temp 100.5 F 01/21/17 07:50 Pulse 96 01/21/17 07:50 Resp 18 01/21/17 07:50 BP 144/80 01/21/17 07:50 Pulse Ox 95 01/21/17 07:50 Intake & Output 01/20/17 01/21/17 01/21/17 18:59 06:59 18:59 Intake Total 146.25 1200 Output Total 25 Balance 146.25 1175 Weight (lbs) 48.988 kg Intake: Intake, IV Amount 146.25 1000 Ciprofloxacin 200mg 100 Premix PB 200 mg In 100 ml @ 100 mls/hr IV Q12H EB Rx#:[id number] D5-0.45NS 1,000 ml @ 75 46.25 mls/hr IV .[id number] EB Rx #:[id number] D5-0.9%Ns 1,000 ml @ 75 1000 mls/hr IV .[id number] EB Rx #:[id number] Oral 200 Output: Drainage 25 Left Abdomen 25 Other: # Voids 3 # Bowel Movements 1 Active Medications: Current Medications Acetaminophen (Tylenol Extra Strength) 500 mg PO Q6H PRN PRN Reason: Fever >101 Stop: 03/21/17 02:00 Last Admin: 01/21/17 07:33 Dose: 500 mg Hydromorphone HCl (Dilaudid) 2 mg IVP Q4HR PRN PRN Reason: Abdominal Pain Stop: 03/14/17 14:19 Last Admin: 01/21/17 05:35 Dose: 2 mg Ciprofloxacin (Cipro 200mg Premix Pb) 200 mg in 100 mls @ 100 mls/hr IV Q12H EB Stop: 03/13/17 02:59 Last Admin: 01/21/17 02:55 Dose: 100 mls/hr Dextrose/Sodium Chloride (D5-0.9%Ns) 1,000 mls @ 75 mls/hr IV .[id number] EB Stop: 03/21/17 13:29 Last Admin: 01/21/17 06:01 Dose: 75 mls/hr Lactobacillus Rhamnosus (Culturelle) 1 each PO DAILY EB Stop: 03/14/17 08:59 Last Admin: 01/20/17 08:18 Dose: 1 each Lorazepam (Ativan) 1 mg IVP Q6HR PRN; Protocol PRN Reason: Anxiety Stop: 03/15/17 15:38 Last Admin: 01/21/17 00:50 Dose: 1 mg Metoprolol Tartrate (Lopressor) 50 mg PO DAILY EB Stop: 03/13/17 08:59 Last Admin: 01/20/17 08:18 Dose: 50 mg Metronidazole (Flagyl) 500 mg PO Q8H EB Stop: 03/21/17 10:59 Last Admin: 01/21/17 03:00 Dose: 500 mg Miscellaneous (Probiotic Screen) 1 ea MC PRN PRN PRN Reason: PROTOCOL Stop: 03/13/17 14:20 Ondansetron HCl (Zofran) 4 mg IV Q4HR PRN PRN Reason: Nausea / Vomiting Stop: 03/13/17 02:11 Last Admin: 01/21/17 06:00 Dose: 4 mg Temazepam (Restoril) 15 mg PO HS PRN; Protocol PRN Reason: Insomnia Stop: 03/14/17 16:59 Last Admin: 01/16/17 23:37 Dose: 15 mg - Procedures Procedures: Procedures Procedure Code Date ERCP REMOVE DUCT CALCULI 05546 01/12/17 EXTIRPATION OF MATTER FROM COMMON BILE DUCT, ENDO [id number] 01/12/17 Assessment/Plan - Assessment Assessment: 51 YO FEMALE WITH CBD STONE AND CHOLECYSTITIS S/P ERCP AND STONE REMOVAL S/P ANGIE LFTS ARE NORMAL ALSO HAS THE FINDING OF FOREIGN OBJECT IN THE CECUM PT HAD EGD AND COLO 12/18/16 AT [facility] WITH ENDOCLIP PLACEMENT THE CT SHOWED 2 CM LINEAR OBJECT IN THE CECUM WHICH COULD CORRESPOND TO THE ENDOCLIP D/W AND HE THOUGHT PT MAY HAD FOREIGN OBJECT PRIOR TO THE PROCEDURE 1.CONT POST OP CARE 2.CONSIDER KUB IN 1 MONTH TO EVALUATE FOR ENDOCLIP PASSAGE 3.CHECK CT ABD PELVIS
[2017-01-21 09:49] LABS: ALB/GLOB RATIO 1.3 (1.0-1.8); BILIRUBIN,DIRECT 0.15 mg/dL (0.0-0.2); BILIRUBIN,TOTAL 0.6 mg/dL (0.3-1.0)
--- NOTE | 2017-01-21 10:12 | General Progress Note ---
Subjective - Review of Systems Service Date: 01/21/17 Events since last encounter: liver function test normal JAGJIT drain 25 cc JAGJIT removed fever, CT ordered by Dr. Villareal Objective - Results Result Diagrams: 01/21/17 05:30 01/21/17 07:25 Recent Labs: Laboratory Last Values WBC 12.4 Th/cmm (4.8-10.8) H 01/21/17 05:30 RBC 3.38 Mil/cmm (3.80-5.10) L 01/21/17 05:30 Hgb 10.6 gm/dL (12-16) L 01/21/17 05:30 Hct 31.1 % (41.0-60) L 01/21/17 05:30 MCV 92.1 fl (81-100) 01/21/17 05:30 MCH 31.3 pg (27.0-31.0) H 01/21/17 05:30 MCHC Differential 34.0 pg (28.0-36.0) 01/21/17 05:30 RDW 11.7 % (11.5-20.0) 01/21/17 05:30 Plt Count 180 Th/cmm (150-400) D 01/21/17 05:30 MPV 9.3 fl 01/21/17 05:30 Neutrophils % 57.3 % (40.0-80.0) 01/19/17 05:55 Band Neutrophils % 2 % (0-10) 01/20/17 11:25 Lymphocytes % 30.3 % (20.0-50.0) 01/19/17 05:55 Monocytes % 8.9 % (2.0-10.0) 01/19/17 05:55 Eosinophils % 3.0 % (0.0-5.0) 01/19/17 05:55 Basophils % 0.5 % (0.0-2.0) 01/19/17 05:55 Neutrophils (Manual) 84 % (40-80) H 01/21/17 05:30 Lymphocytes 11 % (20-50) L 01/21/17 05:30 Monocytes 2 % (2-10) 01/21/17 05:30 Eosinophils 3 % (0-5) 01/21/17 05:30 ESR 26 mm/hr (0-30) 01/14/17 06:35 PT 12.2 SECONDS (9.5-11.5) H 01/18/17 05:09 INR 1.16 (0.5-1.4) 01/18/17 05:09 PTT (Actin FS) 23.5 SECONDS (26.0-38.0) L 01/18/17 05:09 Sodium 134 mEq/L (136-145) L 01/21/17 07:25 Potassium 3.7 mEq/L (3.5-5.1) 01/21/17 07:25 Chloride 102 mEq/L (98-107) 01/21/17 07:25 Carbon Dioxide 29.2 mEq/L (21.0-31.0) 01/21/17 07:25 Anion Gap 6.5 (7.0-16.0) L 01/21/17 07:25 BUN 5 mg/dL (7-25) L 01/21/17 07:25 Creatinine 0.6 mg/dL (0.6-1.2) 01/21/17 07:25 Est GFR ( Amer) > 60.0 ml/min (>90) 01/21/17 07:25 Est GFR (Non-Af Amer) > 60.0 ml/min 01/21/17 07:25 BUN/Creatinine Ratio 8.3 01/21/17 07:25 Glucose 119 mg/dL (70-105) H 01/21/17 07:25 POC Glucose 85 MG/DL (70 - 105) 01/19/17 08:33 Calcium 8.5 mg/dL (8.6-10.3) L 01/21/17 07:25 Magnesium 1.7 mg/dL (1.9-2.7) L 01/21/17 07:25 Total Bilirubin 0.6 mg/dL (0.3-1.0) 01/21/17 09:34 Direct Bilirubin 0.15 mg/dL (0.0-0.2) 01/21/17 09:34 AST 13 U/L (13-39) 01/21/17 09:34 ALT 8 U/L (7-52) 01/21/17 09:34 Alkaline Phosphatase 50 U/L (34-104) 01/21/17 09:34 Total Protein 5.7 gm/dL (6.0-8.3) L 01/21/17 09:34 Albumin 3.2 gm/dL (3.7-5.3) L 01/21/17 09:34 Globulin 2.5 gm/dL 01/21/17 09:34 Albumin/Globulin Ratio 1.3 (1.0-1.8) 01/21/17 09:34 Lipase 12 U/L (11-82) 01/12/17 06:20 Urine Source CLEAN C 01/11/17 22:05 Urine Color YELLOW 01/11/17 22:05 Urine Clarity SLIGHT CLOUDY (CLEAR) 01/11/17 22:05 Urine pH 6.0 (4.6 - 8.0) 01/11/17 22:05 Ur Specific [place] 1.020 (1.005-1.030) 01/11/17 22:05 Urine Protein NEGATIVE mg/dL (NEGATIVE) 01/11/17 22:05 Urine Glucose (UA) NEGATIVE mg/dL (NEGATIVE) 01/11/17 22:05 Urine Ketones NEGATIVE mg/dL (NEGATIVE) 01/11/17 22:05 Urine Blood SMALL (NEGATIVE) H 01/11/17 22:05 Urine Nitrate NEGATIVE (NEGATIVE) 01/11/17 22:05 Urine Bilirubin NEGATIVE (NEGATIVE) 01/11/17 22:05 Urine Urobilinogen 0.2 E.U./dL (0.2 - 1.0) 01/11/17 22:05 Ur Leukocyte Esterase TRACE (NEGATIVE) H 01/11/17 22:05 Urine RBC 2-5 /hpf (0-5) 01/11/17 22:05 Urine WBC 2-5 /hpf (0-5) 01/11/17 22:05 Ur Epithelial Cells MODERATE /lpf (FEW) 01/11/17 22:05 Urine Bacteria FEW /hpf (NONE SEEN) 01/11/17 22:05 Urine Mucus MODERATE /lpf (FEW) 01/11/17 22:05 Urine Opiates Screen POSITIVE (NEGATIVE) H 01/12/17 21:45 Urine Methadone Screen NEGATIVE (NEGATIVE) 01/12/17 21:45 Ur Barbiturates Screen NEGATIVE (NEGATIVE) 01/12/17 21:45 Ur Tricyclics Screen NEGATIVE (NEGATIVE) 01/12/17 21:45 Ur Phencyclidine Scrn NEGATIVE (NEGATIVE) 01/12/17 21:45 Amphetamines Screen NEGATIVE (NEGATIVE) 01/12/17 21:45 U Methamphetamines Scrn NEGATIVE (NEGATIVE) 01/12/17 21:45 U Benzodiazepines Scrn POSITIVE (NEGATIVE) H 01/12/17 21:45 U Cocaine Metab Screen NEGATIVE (NEGATIVE) 01/12/17 21:45 U Cannabinoids Screen NEGATIVE (NEGATIVE) 01/12/17 21:45 - Physical Exam Vitals and I&O: Vital Signs Temp 100.5 F 01/21/17 07:50 Pulse 96 01/21/17 09:11 Resp 18 01/21/17 09:31 BP 144/80 01/21/17 09:11 Pulse Ox 95 01/21/17 07:50 Intake & Output 01/20/17 01/21/17 01/21/17 18:59 06:59 18:59 Intake Total 146.25 1200 Output Total 25 Balance 146.25 1175 Weight (lbs) 48.988 kg Intake: Intake, IV Amount 146.25 1000 Ciprofloxacin 200mg 100 Premix PB 200 mg In 100 ml @ 100 mls/hr IV Q12H EB Rx#:[id number] D5-0.45NS 1,000 ml @ 75 46.25 mls/hr IV .[id number] EB Rx #:[id number] D5-0.9%Ns 1,000 ml @ 75 1000 mls/hr IV .[id number] EB Rx #:[id number] Oral 200 Output: Drainage 25 Left Abdomen 25 Other: # Voids 3 # Bowel Movements 1 Active Medications: Current Medications Acetaminophen (Tylenol Extra Strength) 500 mg PO Q6H PRN PRN Reason: Fever >101 Stop: 03/21/17 02:00 Last Admin: 01/21/17 07:33 Dose: 500 mg Hydromorphone HCl (Dilaudid) 2 mg IVP Q4HR PRN PRN Reason: Abdominal Pain Stop: 03/14/17 14:19 Last Admin: 01/21/17 09:34 Dose: 2 mg Ciprofloxacin (Cipro 200mg Premix Pb) 200 mg in 100 mls @ 100 mls/hr IV Q12H EB Stop: 03/13/17 02:59 Last Admin: 01/21/17 02:55 Dose: 100 mls/hr Dextrose/Sodium Chloride (D5-0.9%Ns) 1,000 mls @ 75 mls/hr IV .[id number] EB Stop: 03/21/17 13:29 Last Admin: 01/21/17 06:01 Dose: 75 mls/hr Lactobacillus Rhamnosus (Culturelle) 1 each PO DAILY EB Stop: 03/14/17 08:59 Last Admin: 01/21/17 09:11 Dose: 1 each Lorazepam (Ativan) 1 mg IVP Q6HR PRN; Protocol PRN Reason: Anxiety Stop: 03/15/17 15:38 Last Admin: 01/21/17 00:50 Dose: 1 mg Metoprolol Tartrate (Lopressor) 50 mg PO DAILY EB Stop: 03/13/17 08:59 Last Admin: 01/21/17 09:11 Dose: 50 mg Metronidazole (Flagyl) 500 mg PO Q8H EB Stop: 03/21/17 10:59 Last Admin: 01/21/17 03:00 Dose: 500 mg Miscellaneous (Probiotic Screen) 1 ea MC PRN PRN PRN Reason: PROTOCOL Stop: 03/13/17 14:20 Ondansetron HCl (Zofran) 4 mg IV Q4HR PRN PRN Reason: Nausea / Vomiting Stop: 03/13/17 02:11 Last Admin: 01/21/17 09:15 Dose: 4 mg Temazepam (Restoril) 15 mg PO HS PRN; Protocol PRN Reason: Insomnia Stop: 03/14/17 16:59 Last Admin: 01/16/17 23:37 Dose: 15 mg - Procedures Procedures: Procedures Procedure Code Date ERCP REMOVE DUCT CALCULI 51214 01/12/17 EXTIRPATION OF MATTER FROM COMMON BILE DUCT, ENDO [id number] 01/12/17 Nutritional Asmnt/Malnutr-PDOC - Dietary Evaluation Malnutrition Findings (Please click <Entered> for more info): Nutritional Asmnt/Malnutrition Start: 01/17/17 12: 31 Text: Status: Complete Freq: Document 01/17/17 12:31 GSUN (Rec: 01/17/17 12:50 GSUN [id number]) Nutritional Asmnt/Malnutrition Patient General Information Nutritional Screening Moderate Risk Screening Diagnosis Acute cholecystitis with common bile duct steon, UTI Pertinent Medical Hx/Surgical Hx HTN Subjective Information 51 year old female. Pt was awake on her phone and ipad, however slow speech and appeared a questionable historian. Pt has been NPO or on clear liquid since adm, 25% intake when on clears, inadequate nutrition intake day 5, meeting less than 10% estimated lower end kcal needs . Pt reported currently no appetite due to pain and hospitalization, otherwise normally fair appetite. Spoke to RODERICK Watson regarding plan of care vs advancing diet, RN stated pending possible procedures. CT KUB and ultrasound showing stone and foreign body. Adm weight 105lb , pt reported 102lb prior to adm, questionable CBW 112.3lb in EMR. Pt with mild wasting to chest. Teeth intact. No food allergies. Current Diet Order/ Nutrition Support Clear liquid Pertinent Medications D5-0.45ns, Dilaudid, Culturelle, Magnesium Sulfate, Zofran Pertinent Labs Reviewed. Nutritional Hx/Data Height 1.55 m Height (Calculated Centimeters) 154.9 Current Weight (lbs) 50.938 kg Weight (Calculated Kilograms) 50.9 Weight (Calculated Grams) 61002.4 Usual body Weight (lbs) 102 [place] Body Weight 105 Recent Weight Change No Weight Status Approriate GI Symptoms Cultural/Ethnic/Yarsani Belief Dislike frozen fish, only likes fresh grilled fish. Skin Integrity/Comment: Osmani 21. Skin intact. Current %PO Negligible < 25% Estimated Nutritional Goals Calories/Kcals/Kg 105lb/47.7kg (adm weight, closer to pt report CBW 102lb) Kcals Calculated 1193-1431kcal (25-30kcal/kg) Protein Calculated 48g (1g/kg) Fluid: ml 1193-1431ml (1ml/kcal) Nutritional Problem 1. Problem Problem Inadequate oral food beevrage intake related to Etiology diet order, poor appetite due to abdominap pain aeb Signs/Symptoms: NPO or clear since dam day 5, tolerating 25% of clears Intervention/Recommendation Comments 1. Recommend Boost Breeze TID while pt is on clear liquid diet to provide additional kcal and prot to better meen nutritional needs. Pt has been NPO or on clears day 5, poor appetite tolerating 25% of clears, meeting <10% estimated kcal needs. Inadequate nutrition intake. 2. When medically feasible to resume oral diet, recommend low fat diet if cholecystitis. Expected Outcomes/Goals Expected Outcomes/Goals 1. PO intake to reumse oral diet and meet at least 75% of estimated nutritinoal needs.
[2017-01-21] MEDS ORDERED: Diatrizoate Meglumine/Diatri 30 mL Sol ONE (10:37)
--- NOTE | 2017-01-21 13:32 | General Progress Note ---
Subjective - Review of Systems Service Date: 01/21/17 Subjective: still w/ abd pain, no N/V Objective - Results Result Diagrams: 01/21/17 05:30 01/21/17 07:25 Recent Labs: Laboratory Last Values WBC 12.4 Th/cmm (4.8-10.8) H 01/21/17 05:30 RBC 3.38 Mil/cmm (3.80-5.10) L 01/21/17 05:30 Hgb 10.6 gm/dL (12-16) L 01/21/17 05:30 Hct 31.1 % (41.0-60) L 01/21/17 05:30 MCV 92.1 fl (81-100) 01/21/17 05:30 MCH 31.3 pg (27.0-31.0) H 01/21/17 05:30 MCHC Differential 34.0 pg (28.0-36.0) 01/21/17 05:30 RDW 11.7 % (11.5-20.0) 01/21/17 05:30 Plt Count 180 Th/cmm (150-400) D 01/21/17 05:30 MPV 9.3 fl 01/21/17 05:30 Neutrophils % 57.3 % (40.0-80.0) 01/19/17 05:55 Band Neutrophils % 2 % (0-10) 01/20/17 11:25 Lymphocytes % 30.3 % (20.0-50.0) 01/19/17 05:55 Monocytes % 8.9 % (2.0-10.0) 01/19/17 05:55 Eosinophils % 3.0 % (0.0-5.0) 01/19/17 05:55 Basophils % 0.5 % (0.0-2.0) 01/19/17 05:55 Neutrophils (Manual) 84 % (40-80) H 01/21/17 05:30 Lymphocytes 11 % (20-50) L 01/21/17 05:30 Monocytes 2 % (2-10) 01/21/17 05:30 Eosinophils 3 % (0-5) 01/21/17 05:30 ESR 26 mm/hr (0-30) 01/14/17 06:35 PT 12.2 SECONDS (9.5-11.5) H 01/18/17 05:09 INR 1.16 (0.5-1.4) 01/18/17 05:09 PTT (Actin FS) 23.5 SECONDS (26.0-38.0) L 01/18/17 05:09 Sodium 134 mEq/L (136-145) L 01/21/17 07:25 Potassium 3.7 mEq/L (3.5-5.1) 01/21/17 07:25 Chloride 102 mEq/L (98-107) 01/21/17 07:25 Carbon Dioxide 29.2 mEq/L (21.0-31.0) 01/21/17 07:25 Anion Gap 6.5 (7.0-16.0) L 01/21/17 07:25 BUN 5 mg/dL (7-25) L 01/21/17 07:25 Creatinine 0.6 mg/dL (0.6-1.2) 01/21/17 07:25 Est GFR ( Amer) > 60.0 ml/min (>90) 01/21/17 07:25 Est GFR (Non-Af Amer) > 60.0 ml/min 01/21/17 07:25 BUN/Creatinine Ratio 8.3 01/21/17 07:25 Glucose 119 mg/dL (70-105) H 01/21/17 07:25 POC Glucose 85 MG/DL (70 - 105) 01/19/17 08:33 Calcium 8.5 mg/dL (8.6-10.3) L 01/21/17 07:25 Magnesium 1.7 mg/dL (1.9-2.7) L 01/21/17 07:25 Total Bilirubin 0.6 mg/dL (0.3-1.0) 01/21/17 09:34 Direct Bilirubin 0.15 mg/dL (0.0-0.2) 01/21/17 09:34 AST 13 U/L (13-39) 01/21/17 09:34 ALT 8 U/L (7-52) 01/21/17 09:34 Alkaline Phosphatase 50 U/L (34-104) 01/21/17 09:34 Total Protein 5.7 gm/dL (6.0-8.3) L 01/21/17 09:34 Albumin 3.2 gm/dL (3.7-5.3) L 01/21/17 09:34 Globulin 2.5 gm/dL 01/21/17 09:34 Albumin/Globulin Ratio 1.3 (1.0-1.8) 01/21/17 09:34 Lipase 12 U/L (11-82) 01/12/17 06:20 Urine Source CLEAN C 01/11/17 22:05 Urine Color YELLOW 01/11/17 22:05 Urine Clarity SLIGHT CLOUDY (CLEAR) 01/11/17 22:05 Urine pH 6.0 (4.6 - 8.0) 01/11/17 22:05 Ur Specific [place] 1.020 (1.005-1.030) 01/11/17 22:05 Urine Protein NEGATIVE mg/dL (NEGATIVE) 01/11/17 22:05 Urine Glucose (UA) NEGATIVE mg/dL (NEGATIVE) 01/11/17 22:05 Urine Ketones NEGATIVE mg/dL (NEGATIVE) 01/11/17 22:05 Urine Blood SMALL (NEGATIVE) H 01/11/17 22:05 Urine Nitrate NEGATIVE (NEGATIVE) 01/11/17 22:05 Urine Bilirubin NEGATIVE (NEGATIVE) 01/11/17 22:05 Urine Urobilinogen 0.2 E.U./dL (0.2 - 1.0) 01/11/17 22:05 Ur Leukocyte Esterase TRACE (NEGATIVE) H 01/11/17 22:05 Urine RBC 2-5 /hpf (0-5) 01/11/17 22:05 Urine WBC 2-5 /hpf (0-5) 01/11/17 22:05 Ur Epithelial Cells MODERATE /lpf (FEW) 01/11/17 22:05 Urine Bacteria FEW /hpf (NONE SEEN) 01/11/17 22:05 Urine Mucus MODERATE /lpf (FEW) 01/11/17 22:05 Urine Opiates Screen POSITIVE (NEGATIVE) H 01/12/17 21:45 Urine Methadone Screen NEGATIVE (NEGATIVE) 01/12/17 21:45 Ur Barbiturates Screen NEGATIVE (NEGATIVE) 01/12/17 21:45 Ur Tricyclics Screen NEGATIVE (NEGATIVE) 01/12/17 21:45 Ur Phencyclidine Scrn NEGATIVE (NEGATIVE) 01/12/17 21:45 Amphetamines Screen NEGATIVE (NEGATIVE) 01/12/17 21:45 U Methamphetamines Scrn NEGATIVE (NEGATIVE) 01/12/17 21:45 U Benzodiazepines Scrn POSITIVE (NEGATIVE) H 01/12/17 21:45 U Cocaine Metab Screen NEGATIVE (NEGATIVE) 01/12/17 21:45 U Cannabinoids Screen NEGATIVE (NEGATIVE) 01/12/17 21:45 - Physical Exam Vitals and I&O: Vital Signs Temp 99.1 F 01/21/17 11:43 Pulse 81 01/21/17 11:43 Resp 18 01/21/17 11:43 BP 136/73 01/21/17 11:43 Pulse Ox 97 01/21/17 11:43 Intake & Output 01/20/17 01/21/17 01/21/17 18:59 06:59 18:59 Intake Total 146.25 1200 Output Total 25 Balance 146.25 1175 Weight (lbs) 48.988 kg Intake: Intake, IV Amount 146.25 1000 Ciprofloxacin 200mg 100 Premix PB 200 mg In 100 ml @ 100 mls/hr IV Q12H EB Rx#:[id number] D5-0.45NS 1,000 ml @ 75 46.25 mls/hr IV .[id number] EB Rx #:[id number] D5-0.9%Ns 1,000 ml @ 75 1000 mls/hr IV .[id number] EB Rx #:[id number] Oral 200 Output: Drainage 25 Left Abdomen 25 Other: # Voids 3 # Bowel Movements 1 Active Medications: Current Medications Acetaminophen (Tylenol Extra Strength) 500 mg PO Q6H PRN PRN Reason: Fever >101 Stop: 03/21/17 02:00 Last Admin: 01/21/17 07:33 Dose: 500 mg Hydromorphone HCl (Dilaudid) 2 mg IVP Q3HR PRN PRN Reason: Abdominal Pain Stop: 03/14/17 14:19 Ciprofloxacin (Cipro 200mg Premix Pb) 200 mg in 100 mls @ 100 mls/hr IV Q12H EB Stop: 03/13/17 02:59 Last Admin: 01/21/17 02:55 Dose: 100 mls/hr Dextrose/Sodium Chloride (D5-0.9%Ns) 1,000 mls @ 75 mls/hr IV .[id number] EB Stop: 03/21/17 13:29 Last Admin: 01/21/17 06:01 Dose: 75 mls/hr Lactobacillus Rhamnosus (Culturelle) 1 each PO DAILY EB Stop: 03/14/17 08:59 Last Admin: 01/21/17 09:11 Dose: 1 each Lorazepam (Ativan) 1 mg IVP Q6HR PRN; Protocol PRN Reason: Anxiety Stop: 03/15/17 15:38 Last Admin: 01/21/17 00:50 Dose: 1 mg Metoprolol Tartrate (Lopressor) 50 mg PO DAILY EB Stop: 03/13/17 08:59 Last Admin: 01/21/17 09:11 Dose: 50 mg Metronidazole (Flagyl) 500 mg PO Q8H EB Stop: 03/21/17 10:59 Last Admin: 01/21/17 11:34 Dose: 500 mg Miscellaneous (Probiotic Screen) 1 ea MC PRN PRN PRN Reason: PROTOCOL Stop: 03/13/17 14:20 Ondansetron HCl (Zofran) 4 mg IV Q4HR PRN PRN Reason: Nausea / Vomiting Stop: 03/13/17 02:11 Last Admin: 01/21/17 09:15 Dose: 4 mg Temazepam (Restoril) 15 mg PO HS PRN; Protocol PRN Reason: Insomnia Stop: 03/14/17 16:59 Last Admin: 01/16/17 23:37 Dose: 15 mg General: Alert, Moderate distress HEENT: Atraumatic, PERRLA, EOMI Neck: Supple, +2 carotid pulse wo bruit Cardiovascular: Regular rate, Normal S1, Normal S2 Lungs: Clear to auscultation Abdomen: Bowel sounds, Soft, no Drain Extremities: no Edema Neurological: Sensation intact Skin: no Rash Psych/Mental Status: Other (anxious) - Procedures Procedures: Procedures Procedure Code Date ERCP REMOVE DUCT CALCULI 93356 01/12/17 EXTIRPATION OF MATTER FROM COMMON BILE DUCT, ENDO [id number] 01/12/17 Assessment/Plan - Assessment Assessment: Cholelithiasis S/P ERCP Calculous Cholecystitis S/P Open [place] w/ Lysis adhesions Ess Htn Anxiety Post op fever vs infxn - Plan Plan: Lab - Result Diagrams 01/21/17 05:30 01/21/17 07:25 Current Medications Acetaminophen (Tylenol Extra Strength) 500 mg PO Q6H PRN PRN Reason: Fever >101 Stop: 03/21/17 02:00 Last Admin: 01/21/17 07:33 Dose: 500 mg Hydromorphone HCl (Dilaudid) 2 mg IVP Q3HR PRN PRN Reason: Abdominal Pain Stop: 03/14/17 14:19 Ciprofloxacin (Cipro 200mg Premix Pb) 200 mg in 100 mls @ 100 mls/hr IV Q12H [facility] Stop: 03/13/17 02:59 Last Admin: 01/21/17 02:55 Dose: 100 mls/hr Dextrose/Sodium Chloride (D5-0.9%Ns) 1,000 mls @ 75 mls/hr IV .[id number] [facility] Stop: 03/21/17 13:29 Last Admin: 01/21/17 06:01 Dose: 75 mls/hr Lactobacillus Rhamnosus (Culturelle) 1 each PO DAILY [facility] Stop: 03/14/17 08:59 Last Admin: 01/21/17 09:11 Dose: 1 each Lorazepam (Ativan) 1 mg IVP Q6HR PRN; Protocol PRN Reason: Anxiety Stop: 03/15/17 15:38 Last Admin: 01/21/17 00:50 Dose: 1 mg Metoprolol Tartrate (Lopressor) 50 mg PO DAILY [facility] Stop: 03/13/17 08:59 Last Admin: 01/21/17 09:11 Dose: 50 mg Metronidazole (Flagyl) 500 mg PO Q8H [facility] Stop: 03/21/17 10:59 Last Admin: 01/21/17 11:34 Dose: 500 mg Miscellaneous (Probiotic Screen) 1 ea MC PRN PRN PRN Reason: PROTOCOL Stop: 03/13/17 14:20 Ondansetron HCl (Zofran) 4 mg IV Q4HR PRN PRN Reason: Nausea / Vomiting Stop: 03/13/17 02:11 Last Admin: 01/21/17 09:15 Dose: 4 mg Temazepam (Restoril) 15 mg PO HS PRN; Protocol PRN Reason: Insomnia Stop: 03/14/17 16:59 Last Admin: 01/16/17 23:37 Dose: 15 mg Lab - Result Diagrams 01/21/17 05:30 01/21/17 07:25 still w/ lo grade fever CT scan of abd/pelvis done tolerating meals D5 1/2NS @ 75 ml/hr Cipro 200 mg q 12 [place] 500 mg q 8 adjusted Dilaudid Nutritional Asmnt/Malnutr-PDOC - Dietary Evaluation Malnutrition Findings (Please click <Entered> for more info): Nutritional Asmnt/Malnutrition Start: 01/17/17 12: 31 Text: Status: Complete Freq: Document 01/17/17 12:31 GSUN (Rec: 01/17/17 12:50 GSUN [email or web address]) Nutritional Asmnt/Malnutrition Patient General Information Nutritional Screening Moderate Risk Screening Diagnosis Acute cholecystitis with common bile duct steon, UTI Pertinent Medical Hx/Surgical Hx HTN Subjective Information 51 year old female. Pt was awake on her phone and ipad, however slow speech and appeared a questionable historian. Pt has been NPO or on clear liquid since adm, 25% intake when on clears, inadequate nutrition intake day 5, meeting less than 10% estimated lower end kcal needs . Pt reported currently no appetite due to pain and hospitalization, otherwise normally fair appetite. Spoke to RODERICK Watson regarding plan of care vs advancing diet, RN stated pending possible procedures. CT KUB and ultrasound showing stone and foreign body. Adm weight 105lb , pt reported 102lb prior to adm, questionable CBW 112.3lb in EMR. Pt with mild wasting to chest. Teeth intact. No food allergies. Current Diet Order/ Nutrition Support Clear liquid Pertinent Medications D5-0.45ns, Dilaudid, Culturelle, Magnesium Sulfate, Zofran Pertinent Labs Reviewed. Nutritional Hx/Data Height 1.55 m Height (Calculated Centimeters) 154.9 Current Weight (lbs) 50.938 kg Weight (Calculated Kilograms) 50.9 Weight (Calculated Grams) 02406.4 Usual body Weight (lbs) 102 [place] Body Weight 105 Recent Weight Change No Weight Status Approriate GI Symptoms Cultural/Ethnic/Taoist Belief Dislike frozen fish, only likes fresh grilled fish. Skin Integrity/Comment: Osmani 21. Skin intact. Current %PO Negligible < 25% Estimated Nutritional Goals Calories/Kcals/Kg 105lb/47.7kg (adm weight, closer to pt report CBW 102lb) Kcals Calculated 1193-1431kcal (25-30kcal/kg) Protein Calculated 48g (1g/kg) Fluid: ml 1193-1431ml (1ml/kcal) Nutritional Problem 1. Problem Problem Inadequate oral food beevrage intake related to Etiology diet order, poor appetite due to abdominap pain aeb Signs/Symptoms: NPO or clear since dam day 5, tolerating 25% of clears Intervention/Recommendation Comments 1. Recommend Boost Breeze TID while pt is on clear liquid diet to provide additional kcal and prot to better meen nutritional needs. Pt has been NPO or on clears day 5, poor appetite tolerating 25% of clears, meeting <10% estimated kcal needs. Inadequate nutrition intake. 2. When medically feasible to resume oral diet, recommend low fat diet if cholecystitis. Expected Outcomes/Goals Expected Outcomes/Goals 1. PO intake to reumse oral diet and meet at least 75% of estimated nutritinoal needs.
[2017-01-22] MEDS: HYDROmorphone 2 mg/mL 1mL Vial IVP PRN ×4 (01:33→11:12)
[2017-01-22] MEDS: Ciprofloxacin 200mg Premix PB 200 MG/100 ML BAG IV SCH (02:29)
[2017-01-22 06:20] LABS: % BASOPHILS 0.5 % (0.0-2.0); % EOSINOPHILS 3.9 % (0.0-5.0); % LYMPHOCYTES 18.1 % (20.0-50.0); % MONOCYTES 9.2 % (2.0-10.0); % NEUTROPHILS 68.3 % (40.0-80.0); HEMATOCRIT 31.7 % (41.0-60); HEMOGLOBIN 10.8 gm/dL (12-16); MEAN CORPUSCULAR HEMOGLOBIN 31.3 pg (27.0-31.0); MEAN PLATELET VOLUME 8.7 fl; NEUTROPHILE ABSOLUTE 6.3 Th/cmm (1.8-8.0); RED BLOOD COUNT 3.45 Mil/cmm (3.80-5.10); RED CELL DISTRIBUTION WIDTH 11.6 % (11.5-20.0)
[2017-01-22 06:23] LABS: WHITE BLOOD COUNT 9.2 Th/cmm (4.8-10.8)
[2017-01-22 06:24] LABS: PLATELET COUNT 252 Th/cmm (150-400)
[2017-01-22 06:48] LABS: ANION GAP 8.8 (7.0-16.0); BUN - UREA NITROGEN 3 mg/dL (7-25); CALCIUM SERUM 8.9 mg/dL (8.6-10.3); CARBON DIOXIDE 27.8 mEq/L (21.0-31.0); CHLORIDE 103 mEq/L (98-107); CREATININE - SERUM 0.6 mg/dL (0.6-1.2); GLUCOSE 105 mg/dL (70-105); POTASSIUM SERUM 3.6 mEq/L (3.5-5.1); SODIUM SERUM 136 mEq/L (136-145)
--- NOTE | 2017-01-22 08:01 | Diagnostic Imaging Report ---
CT abdomen and pelvis without intravenous contrast Indication: Abdominal pain, status post ERCP. Patient is also status post cholecystectomy. Comparison: Previous CT abdomen and pelvis on, Technique: Axial images were obtained from the lung bases to the bilateral proximal femurs without IV contrast. Oral contrast was administered. Reconstructions were made. Total DLP 314, CTD I 6.5 FINDINGS: Left basal atelectatic changes and minimal consolidative changes are noted. Assessment of the solid organs is limited due to lack of IV contrast. There is a moderate amount of free abdominal air along the upper anterior abdomen. Few a scattered pockets of gas are also seen along the anterior abdomen and within the abdominal wall muscles and regional subcutaneous tissues. The patient is status post cholecystectomy. There are pockets of gas and heterogeneous density seen along the right upper quadrant. Borderline prominent spleen is noted. No focal lesions identified. No focal pancreatic or adrenal lesions. There is mild bilateral hydronephrosis. Markedly distended urinary bladder is noted. No evidence of renal stones. Oral contrast is seen within bowel loops without evidence of obstruction. No evidence of extravasation of contrast. Mild inflammatory changes are seen within the mesentery and omentum which trace free fluid seen throughout these regions. Postsurgical changes of the pelvis also noted. Diffuse atherosclerotic vascular disease is noted. There is slight diastases of the midline rectus abdominis muscles with small fat-containing midline ventral hernia in these region. The osseous structures demonstrate no acute abnormalities. IMPRESSION: Moderate amount of free abdominal air. Please correlate with clinical findings and surgical history. This may have been cervical of recent cholecystectomy procedure, however, other etiologies such as bowel perforation cannot be completely excluded. There was no evidence of extravasation of oral contrast on this CT examination. Evidence of cholecystectomy procedure with heterogeneous density and pockets of gas seen along the postsurgical bed. Although these findings may represent postsurgical change, an occult bile leak or less likely injury to bowel loops in this region cannot be completely excluded. If there is continued concern for an occult bile leak, nuclear medicine HIDA scan may be obtained for further assessment. Surrounding inflammatory changes seen along the regional postsurgical fat planes extending to the mesentery and omental region. Distended stomach. No evidence of bowel obstruction. Markedly distended urinary bladder. There is also mild bilateral hydronephrosis which is likely to patient's distended urinary bladder. Additional postsurgical changes along the anterior abdominal wall with pockets of gas inflammatory changes noted. Small midline ventral hernia seen containing fat. Left basal atelectasis and minimal consolidative changes. Infiltrative the left lung base cannot be excluded. Atherosclerotic vascular disease.
[2017-01-22] MEDS: Lactobacillus Rhamnosus 10 Billion CFU Capsule PO SCH (08:10)
--- NOTE | 2017-01-23 10:01 | Discharge Summary ---
DATE OF DISCHARGE: 01/22/2017 ADMITTING DIAGNOSES: 1. Abdominal pain. 2. Acute cholecystitis with common bile duct stone. 3. Urinary tract infection. 4. Bilateral atelectasis. 5. Foreign object at cecum. SECONDARY DIAGNOSES: Include: 1. History of multiple surgeries. 2. History of recent colonoscopy with multiple polyp removal. 3. Atherosclerosis. 4. History of essential hypertension. 5. History of multiple drug allergies. 6. Hypertension. 7. Chronic anxiety. 8. History of hysterectomy 2ry to endometriosis. DISCHARGE DIAGNOSES: 1. Status post open cholecystectomy with lysis of adhesions. 2. Status post endoscopic retrograde cholangiopancreatography with removal of common bile duct stone. 3. Leukocytosis, resolved. 4. Postoperative hyponatremia, resolved. 5. Postoperative anemia, stable. 6. Narcotic dependence. 7. Surgical clip at cecum site. CONSULTANTS: Dr. Villareal and Dr. Woods. MAJOR PROCEDURES: There was an abdominal ultrasound done on 01/11/2017 showing distended gallbladder. There is a suggestion of a stone within the common bile duct. CT abdomen and pelvis done on 01/11/2017 was suggestive of an 8 mm stone within the distal common bile duct, nonspecific fullness of bilateral renal collecting system without evidence of shaji hydronephrosis. There are postsurgical changes in the pelvis, mild distended gallbladder. There is also nonspecific linear radiodensity measuring 2 cm in the region of the cecum. No evidence of free fluid or free air. Basilar atelectasis and consolidative changes. There is also moderate atherosclerosis. On 01/12/2017, she underwent a HIDA scan showing no evidence of gallbladder uptake at 60 minutes. Abdominal MRI done on 01/12/2017, shows susceptibility artifact along the right lower quadrant. This corresponds to ingested foreign body seen along the right cecal region described on the CT examination on 01/11/2017. There was a KUB done on 01/13/2017 showing relatively unchanged appearance of 1.6 cm foreign body in the cecum in the region of the cecum, likely a swallowed foreign object when compared to previous CT examination. Overall, nonspecific bowel gas pattern. ERCP done on 01/18/2017 with removal of common bile duct stone and sphincterectomy. On 01/19/2017, she had an open cholecystectomy with lysis of adhesions. Outpatient colonoscopy about a month ago with [id number] removal. (Records were obtained and there was metallic clip at the site of the foreign object consistent with the above-mentioned radiographic findings). BRIEF HOSPITAL COURSE: The patient is a 51-year-old female with medical history significant for hypertension and multiple surgeries including hysterectomy done around 1989, status post appendectomy and oophorectomy, who presented to the ER with persistent abdominal pain, mostly located on the right upper quadrant. The patient apparently had a recent colonoscopy previous to this admission with polypectomy x6. She stated that she had abdominal pain for a week or so and recurrent fevers up to 102.8. She also had a green yellowish emesis and multiple bouts of diarrhea. She was admitted to the medical floor and placed on IV fluids, IV antibiotics, and supportive care. Given the CT findings (CBD stone and foreign object at cecum) a surgical and a GI eval were asked for. Given the possibility of a foreign object being at the cecum, a decision to repeat a colonoscopy was contemplated. Medical records were obtained from [facility] (colonoscopy report) and it showed they used a metalic clip possibly post polypectomy. This correlated to the findings of the CT scan and KUB, and therefore the patient then was cleared for ERCP and open cholecystectomy. She remained stable, although still in pain with nausea and vomiting. However, she had no fevers after hospital day #1 and her pain was controlled with pain management. She underwent the above-mentioned ERCP without any complications and that was followed by the open cholecystectomy, which had no complications. Postop, she has been stable and improving on her p.o. intakes and been afebrile all along. CONDITION ON DISCHARGE: Stable. DISCHARGE MEDICATIONS: Cipro 250 mg b.i.d. x 7 days, Tylenol 500 mg q. 6 p.r.n. for moderate pain, metoprolol 50 mg daily, Flagyl 500 mg t.i.d. x 7 days. DISPOSITION: The patient was discharged home to self-care. I instructed her to follow up with her primary care doctor within the next 2-3 days and she will follow up with Dr. Woods as scheduled. JOB# [id number] MANUEL
--- NOTE | 2017-01-23 14:27 | Pathology Report ---
[id number] Collection date: 01/19/2017 Surgeon: Dr. Adelso Woods Specimen Description: Gallbladder Gross Description: Received in formalin is a 9 x 2.5 x 2.0 cm oval gallbladder with a smooth, glistening, livingston-chi outer surface. Opening the gallbladder shows a velvety yellow-green mucosa with an intact gallbladder wall ranging from 0.2 to 0.3 cm in thickness. Several small yellowish green gallstones are identified measuring 0.2 cm in greatest dimension. Internet [employer] sections are submitted in one cassette. Gross Pathologic Diagnosis: Cholelithiasis, gallbladder. Microscopic Description: The histologic sections show gallbladder wall and mucosa with chronic inflammation present consisting of lymphocytes and plasma cells. Diagnosis: Chronic cholecystitis, gallbladder. [facility]# [id number] MTDD
== END 2017-01-22 12:35 | disposition home or self-care (01) | DRG 262 ==
LOC: ER 21:52 → MSI 01-12 01:45
PROVIDERS: ADMIT Internal Medicine; ATTEND Internal Medicine
PROC: 0FC98ZZ Extirpation of Matter from Common Bile Duct, Via Natural or Artificial Opening Endoscopic (ICD-10-PCS; principal; 2017-01-18)
PROC: BF101ZZ Fluoroscopy of Bile Ducts using Low Osmolar Contrast (ICD-10-PCS; 2017-01-18)
PROC: 0FT40ZZ Resection of Gallbladder, Open Approach (ICD-10-PCS; 2017-01-19)
PROC: 0DNW0ZZ Release Peritoneum, Open Approach (ICD-10-PCS; 2017-01-19)
DX: K80.42 Calculus of bile duct with acute cholecystitis without obstruction (principal); T18.4XXA Foreign body in colon, initial encounter; E87.1 Hypo-osmolality and hyponatremia; F11.20 Opioid dependence, uncomplicated; I10 Essential (primary) hypertension; N39.0 Urinary tract infection, site not specified; J98.11 Atelectasis; I25.10 Atherosclerotic heart disease of native coronary artery without angina pectoris; F43.23 Adjustment disorder with mixed anxiety and depressed mood; D64.9 Anemia, unspecified; R19.7 Diarrhea, unspecified; Z88.6 Allergy status to analgesic agent; Z88.5 Allergy status to narcotic agent; Z88.1 Allergy status to other antibiotic agents; Z83.3 Family history of diabetes mellitus; Z90.49 Acquired absence of other specified parts of digestive tract; Z90.710 Acquired absence of both cervix and uterus; Z82.49 Family history of ischemic heart disease and other diseases of the circulatory system; Z87.891 Personal history of nicotine dependence
CPT/HCPCS: 36415-UA; 71010-TC; 74000-TC; 74330-TC; 76700-TC; 78226-TC; 80048-TC; 80053-TC; 80076-TC; 80307; 81001-TC; 82948-90; 83690-TC; 83735-TC; 85007-TC; 85025-TC; 85027-TC; 85610-TC; 85652-TC; 85730-TC; 87070-90; 87075-90; 87086-90; 87205-90; 87230-TC; 88304-TC; 90799; 93005; 96372; 96374; 96376; A9537; J0744; J1170; J2060; J2250; J2405; J2704; J2710; J3475; J7030; J7042; Q9967; X6024; X6206; X6258; X6494; Z7506; Z7508; Z7610; Z7610-TC

== ENCOUNTER 2017-01-31 13:52 | Inpatient (IN) | payer MEDICAID ==
--- NOTE | 2017-01-31 14:50 | ED Physician Chart ---
ED Chief Complaint/HPI - Patient Information Date Seen:: 01/31/17 Time Seen:: 14:00 Chief Complaint:: Abdominal Pain History of Present Illness:: onset x one day of diffuse crampy Abdominal Pain, N/V; no H/As, neck pain, C/P, SOB, cough, A/D/C, fever, chills, or urinary s/s Allergies:: Allergies Allergy/AdvReac Type Severity Reaction Status Date / Time aspirin Allergy Verified 11/16/16 16:34 cephalexin [From Keflex] Allergy Verified 11/16/16 16:34 codeine Allergy Verified 11/16/16 16:34 ketorolac [From Toradol] Allergy Verified 11/16/16 16:34 Vitals:: Vital Signs - 8 hr 01/31/17 13:59 Temp 98.6 F HR 70 RR 16 BP 135/80 O2 Sat % 97 Historian:: Patient, Family Member Review:: Nurse's Note Reviewed ED Review of Systems - Review of Systems General/Constitutional: Fever, Chills, No weight loss, No weakness, No diaphoresis, No edema, No loss of appetite Skin: No skin lesions, No rash, No bruising Head: No headache, No light-headedness Eyes: No loss of vision, No pain, No diplopia ENT: No earache, No nasal drainage, No sore throat, No tinnitus Neck: No neck pain, No swelling, No thyromegaly, No stiffness, No mass noted Cardio Vascular: No chest pain, No palpitations, No PND, No orthopnea, No edema Pulmonary: No SOB, No cough, No sputum, No wheezing GI: Nausea, Vomiting, Diarrhea, Pain, No melena, No hematochezia, No constipation, No hematemesis G/U: No dysuria, No frequency, No hematuria Express Clerk: No vaginal discharge, No abnormal vaginal bleed, No contraction Musculoskeletal: No bone or joint pain, No back pain, No muscle pain Endocrine: No polyuria, No polydipsia Psychiatric: No prior psych history, No depression, No anxiety, No suicidal ideation Hematopoietic: No bruising, No lymphadenopathy Allergic/Immuno: No urticaria, No angioedema Neurological: No syncope, No focal symptoms, No weakness, No paresthesia, No headache, No seizure, No dizziness, No confusion, No vertigo ED Past Medical History - Past Medical History Obtainable: Yes Past Medical History: PUD/GERD, Other (Cholelithiasis) Family History: Diabetes Melitus, HTN Social History: Smoker, Alcohol, No Drug Use, Surgical History: Cholecystectomy Psychiatricy History: None Medication: Reviewed Family Medical History - Family Member Father Living Status: Still Living Hx Family Cancer: No Hx Family Coronary Artery Disease: No Hx Family Congestive Heart Failure: No Hx Family Hypertension: No Hx Family Stroke: No Hx Family Diabetes: No Hx Family AIDS: No Hx Family HIV: No Hx Family Hepatitis: No Other Medical History: kidney disease. ED Physical Exam - Physical Examination General/Constitutional: Awake, Well-developed, well-nourished, Alert, No distress, GCS 15, Non-toxic appearing, Ambulatory Head: Atraumatic Eyes: Lids, conjuctiva normal, PERRL, EOMI Skin: Nl inspection, No rash, No skin lesions, No ecchymosis, Well hydrated, No lymphadenopathy ENMT: External ears, nose nl, Nasal exam nl, Lips, teeth, gums nl Neck: Nontender, Full ROM w/o pain, No JVD, No nuchal rigidity, No bruit, No mass, No stridor Respiratory: Nl effort/Exclusion, Clear to Auscultation, No Wheeze/Rhonchi/Rales Cardio Vascular: RRR, No murmur, gallop, rubs, NL S1 S2 GI: No tenderness/rebounding/guarding, No organomegaly, No hernia, Normal BS's, Nondistended, No mass/bruits, No McBurney tenderness : No CVA tenderness Extremities: No tenderness or effusion, Full ROM, normal strength in all extremities, No edema, Normal digits & nails Neuro/Psych: Alert/oriented, DTR's symmetric, Normal sensory exam, Normal motor strength, Judgement/insight normal, Mood normal, Normal gait, No focal deficits Misc: Normal back, No paraspinal tenderness ED Septic Shock - . Is Septic Shock (SBP<90, OR Lactate>4 mmol\L) present?: No - <6hrs of presentation: Vital Signs: Vital Signs - 8 hr 01/31/17 13:59 Temp 98.6 F HR 70 RR 16 BP 135/80 O2 Sat % 97 ED Reassessment (Disposition) - Reassessment Reassessment Condition:: Improved - Diagnosis Diagnosis:: Dx: Abdominal Pain; Gastritis; S/P Cholecystectomy; SBO; Sepsis; Dehydration; Nausea/Vomiting - Aftercare/Follow up Instructions Aftercare/Follow-Up Instructions:: Counseled pt regarding lab results/diagnosis & need follow up, Counseled pt & family regarding lab results/diagnosis & need follow up - Patient Disposition Discharge/Transfer:: Acute Care w/in this hosp Accepting Physician:: Dr. Pinon Time Called:: 1540 Time Responded:: 15:40 Admitted to:: Telemetry Spoke to:: Dr. Pinon Admitting Medical Physician:: Dr. Pinon Condition at Disposition:: Stable, Improved
[2017-01-31] MEDS ORDERED: Sodium Chloride 0.9% 1,000 ML IV ONE (14:51)
[2017-01-31 15:17] LABS: % BASOPHILS 0.9 % (0.0-2.0); % EOSINOPHILS 6.4 % (0.0-5.0); % LYMPHOCYTES 40.9 % (20.0-50.0); % MONOCYTES 7.6 % (2.0-10.0); % NEUTROPHILS 44.2 % (40.0-80.0); HEMOGLOBIN 10.9 gm/dL (12-16); MEAN CELL VOLUME 91.8 fl (81-100); MEAN CORPUSCULAR HEMOGLOBIN 31.3 pg (27.0-31.0); MEAN CORPUSCULAR HGB CONC 34.1 pg (28.0-36.0); MEAN PLATELET VOLUME 7.3 fl; NEUTROPHILE ABSOLUTE 3.1 Th/cmm (1.8-8.0); RED BLOOD COUNT 3.49 Mil/cmm (3.80-5.10); RED CELL DISTRIBUTION WIDTH 12.3 % (11.5-20.0)
[2017-01-31 15:31] LABS: INR 1.21 (0.5-1.4); PROTHROMBIN TIME (TEST) 12.7 SECONDS (9.5-11.5)
[2017-01-31 15:36] LABS: ALB/GLOB RATIO 1.4 (1.0-1.8); ALKALINE PHOSPHATASE 61 U/L (34-104); ANION GAP 7.5 (7.0-16.0); BILIRUBIN,TOTAL 0.2 mg/dL (0.3-1.0); BUN - UREA NITROGEN 13 mg/dL (7-25); BUN/CREATININE RATIO 21.7; CARBON DIOXIDE 27.9 mEq/L (21.0-31.0); CHLORIDE 106 mEq/L (98-107); CHOLESTEROL 156 mg/dL (<200); CREATININE - SERUM 0.6 mg/dL (0.6-1.2); GLUCOSE 93 mg/dL (70-105); POTASSIUM SERUM 3.4 mEq/L (3.5-5.1); SGOT 11 U/L (13-39); SGPT/ALT 5 U/L (7-52); SODIUM SERUM 138 mEq/L (136-145); TRIGLYCERIDES 167 mg/dL (<150)
[2017-01-31 15:37] LABS: AMYLASE SERUM 18 U/L (29-103); LIPASE 21 U/L (11-82)
[2017-01-31 15:41] LABS: PLATELET COUNT 524 Th/cmm (150-400)
[2017-01-31] MEDS ORDERED: Azithromycin 500 MG in Sodium Chloride 0.9% 250 ML IV ONE (15:45)
[2017-01-31] MEDS: HYDROmorphone 1 mg/mL 1mL Syr IVP PRN ×2 (18:35→22:37)
[2017-01-31 19:41] VITALS: BP 138/78
[2017-01-31] MEDS ORDERED: Piperacillin Sodium/Tazobact 3.375 gm Vial IV ONE (21:47)
[2017-01-31] MEDS: D5-0.45NS 1,000 ML IV SCH (22:16)
[2017-01-31] MEDS: metroNIDAZOLE 500mg/NS 100mL 500 MG/100 ML BAG IV SCH (23:06)
[2017-02-01] MEDS: HYDROmorphone 1 mg/mL 1mL Syr IVP PRN ×6 (02:38→20:50)
[2017-02-01 05:25] LABS: % BASOPHILS 0.7 % (0.0-2.0); % EOSINOPHILS 5.4 % (0.0-5.0); % LYMPHOCYTES 25.6 % (20.0-50.0); % MONOCYTES 7.8 % (2.0-10.0); % NEUTROPHILS 60.5 % (40.0-80.0); HEMATOCRIT 33.3 % (41.0-60); HEMOGLOBIN 11.2 gm/dL (12-16); MEAN CELL VOLUME 92.8 fl (81-100); MEAN CORPUSCULAR HEMOGLOBIN 31.1 pg (27.0-31.0); MEAN CORPUSCULAR HGB CONC 33.5 pg (28.0-36.0); MEAN PLATELET VOLUME 7.6 fl; NEUTROPHILE ABSOLUTE 4.3 Th/cmm (1.8-8.0); PLATELET COUNT 490 Th/cmm (150-400); RED BLOOD COUNT 3.59 Mil/cmm (3.80-5.10); RED CELL DISTRIBUTION WIDTH 12.4 % (11.5-20.0); WHITE BLOOD COUNT 7.3 Th/cmm (4.8-10.8)
[2017-02-01 05:38] LABS: INR 1.06 (0.5-1.4)
[2017-02-01 05:46] LABS: ALB/GLOB RATIO 1.3 (1.0-1.8); ALKALINE PHOSPHATASE 58 U/L (34-104); ANION GAP 8.9 (7.0-16.0); BILIRUBIN,TOTAL 0.3 mg/dL (0.3-1.0); BUN - UREA NITROGEN 8 mg/dL (7-25); BUN/CREATININE RATIO 11.4; CARBON DIOXIDE 27.3 mEq/L (21.0-31.0); CHLORIDE 106 mEq/L (98-107); CREATININE - SERUM 0.7 mg/dL (0.6-1.2); GLUCOSE 103 mg/dL (70-105); LIPASE 19 U/L (11-82); MAGNESIUM 1.8 mg/dL (1.9-2.7); POTASSIUM SERUM 3.2 mEq/L (3.5-5.1); SGOT 13 U/L (13-39); SGPT/ALT 5 U/L (7-52); SODIUM SERUM 139 mEq/L (136-145)
[2017-02-01] MEDS: metroNIDAZOLE 500mg/NS 100mL 500 MG/100 ML BAG IV SCH (06:06)
--- NOTE | 2017-02-01 08:49 | Diagnostic Imaging Report ---
Exam: CT examination of the pelvis. HISTORY: Abdominal pain vomiting Total DLP equals 292 CTDI equals 6.3 Findings: Multiple views of the abdomen pelvis obtained from lower thorax to pubic symphysis without administration of intravenous or oral contrast the study correlated with the prior of 01/11/2017. Findings demonstrates normal aeration of lung parenchyma the bases with mild atelectasis. Evidence of previous cholecystectomy. The liver and spleen are normal. There is evidence of for splenomegaly. Kidneys demonstrate no evidence of obstructive uropathy or nephrolithiasis. The abdominal aorta is calcified. The adrenal glands are normal. There is evidence of for moderate amount of subcutaneous soft tissue swelling and edema anterior abdominal wall most likely postoperative. Appendix not visualized. There is no evidence of diverticulitis. Bony structures demonstrate no evidence for lytic or blastic lesions. Again noted multiple metallic clips in the right lower quadrant. IMPRESSION: Edema anterior abdominal wall with abdomen with subcutaneous soft tissue swelling consistent with cellulitis with edema extending into the anterior abdominal mesentery. The inflammatory changes most likely due to postoperative intervention.
[2017-02-01] MEDS ORDERED: Hydrocodone/APAP 5mg/325mg Tab PO PRN (09:40)
[2017-02-01] MEDS: Dicyclomine 10 mg Cap PO SCH ×2 (10:01→17:50)
[2017-02-01] MEDS ORDERED: Probiotic Screen MC PRN (10:15)
--- NOTE | 2017-02-01 10:23 | Diagnostic Imaging Report ---
KUB abdominal film HISTORY: Pain There is a nonspecific gas pattern of nondilated bowel. Surgical clips noted in the right upper abdomen, right lower abdomen, and pelvis. No free intraperitoneal air. IMPRESSION: 1. No acute radiographic abnormalities 2. Surgical changes
--- NOTE | 2017-02-01 12:01 | Diagnostic Imaging Report ---
Portable chest x-ray HISTORY: Vascular catheter placement, shortness of breath Compared with a prior exam of January 19, 2017, a left-sided vascular catheter is seen. The tip is in the region of the superior vena cava. No focal pulmonary processes. The heart size remains normal. IMPRESSION: 1. New vascular catheter placement as noted above 2. No focal pulmonary processes
--- NOTE | 2017-02-01 12:34 | General Progress Note ---
Subjective - Review of Systems Service Date: 02/01/17 Events since last encounter: claims abdominal pain' CT scan negative labs normal incision healing well Objective - Results Result Diagrams: 02/01/17 04:35 02/01/17 04:35 Recent Labs: Laboratory Last Values WBC 7.3 Th/cmm (4.8-10.8) 02/01/17 04:35 RBC 3.59 Mil/cmm (3.80-5.10) L 02/01/17 04:35 Hgb 11.2 gm/dL (12-16) L 02/01/17 04:35 Hct 33.3 % (41.0-60) L 02/01/17 04:35 MCV 92.8 fl (81-100) 02/01/17 04:35 MCH 31.1 pg (27.0-31.0) H 02/01/17 04:35 MCHC Differential 33.5 pg (28.0-36.0) 02/01/17 04:35 RDW 12.4 % (11.5-20.0) 02/01/17 04:35 Plt Count 490 Th/cmm (150-400) H 02/01/17 04:35 MPV 7.6 fl 02/01/17 04:35 Neutrophils % 60.5 % (40.0-80.0) 02/01/17 04:35 Lymphocytes % 25.6 % (20.0-50.0) 02/01/17 04:35 Monocytes % 7.8 % (2.0-10.0) 02/01/17 04:35 Eosinophils % 5.4 % (0.0-5.0) H 02/01/17 04:35 Basophils % 0.7 % (0.0-2.0) 02/01/17 04:35 PT 11.0 SECONDS (9.5-11.5) 02/01/17 04:35 INR 1.06 (0.5-1.4) 02/01/17 04:35 PTT (Actin FS) 23.4 SECONDS (26.0-38.0) L 02/01/17 06:34 D-Dimer 1020 ng/mL (100-400) H 01/31/17 15:08 Sodium 139 mEq/L (136-145) 02/01/17 04:35 Potassium 3.2 mEq/L (3.5-5.1) L 02/01/17 04:35 Chloride 106 mEq/L (98-107) 02/01/17 04:35 Carbon Dioxide 27.3 mEq/L (21.0-31.0) 02/01/17 04:35 Anion Gap 8.9 (7.0-16.0) 02/01/17 04:35 BUN 8 mg/dL (7-25) 02/01/17 04:35 Creatinine 0.7 mg/dL (0.6-1.2) 02/01/17 04:35 Est GFR ( Amer) > 60.0 ml/min (>90) 02/01/17 04:35 Est GFR (Non-Af Amer) > 60.0 ml/min 02/01/17 04:35 BUN/Creatinine Ratio 11.4 02/01/17 04:35 Glucose 103 mg/dL (70-105) 02/01/17 04:35 Whole Bld Lactic Acid 0.61 mmol/L (0.60-1.99) 02/01/17 04:35 Calcium 9.0 mg/dL (8.6-10.3) 02/01/17 04:35 Magnesium 1.8 mg/dL (1.9-2.7) L 02/01/17 04:35 Total Bilirubin 0.3 mg/dL (0.3-1.0) 02/01/17 04:35 AST 13 U/L (13-39) 02/01/17 04:35 ALT 5 U/L (7-52) L 02/01/17 04:35 Alkaline Phosphatase 58 U/L (34-104) 02/01/17 04:35 Creatine Kinase 18 U/L (30-223) L 01/31/17 15:08 Troponin I 0.01 ng/mL (0.01-0.05) 01/31/17 15:08 B-Natriuretic Peptide < 5.0 pg/mL (5.0-100.0) L 01/31/17 15:08 Total Protein 6.3 gm/dL (6.0-8.3) 02/01/17 04:35 Albumin 3.6 gm/dL (3.7-5.3) L 02/01/17 04:35 Globulin 2.7 gm/dL 02/01/17 04:35 Albumin/Globulin Ratio 1.3 (1.0-1.8) 02/01/17 04:35 Triglycerides 167 mg/dL (<150) H 01/31/17 15:08 Cholesterol 156 mg/dL (<200) 01/31/17 15:08 LDL Cholesterol Direct 93 mg/dL (75-193) 01/31/17 15:08 HDL Cholesterol 39 mg/dL (23-92) 01/31/17 15:08 Amylase 18 U/L (29-103) L 01/31/17 15:08 Lipase 19 U/L (11-82) 02/01/17 04:35 Ethyl Alcohol < 10 mg/dL (0-10) 01/31/17 15:08 - Physical Exam Vitals and I&O: Vital Signs Temp 98.4 F 02/01/17 07:39 Pulse 70 02/01/17 07:39 Resp 17 02/01/17 07:39 BP 106/58 02/01/17 07:39 Pulse Ox 97 02/01/17 07:39 Intake & Output 01/31/17 02/01/17 02/01/17 18:59 06:59 18:59 Intake Total 1103.333 Balance 1103.333 Weight (lbs) 49.895 kg 49.396 kg Intake: Intake, IV Amount 1103.333 D5-0.45NS 1,000 ml @ 100 803.333 mls/hr IV .Q10H EB Rx#: [id number] Piperacillin Sodium/ 100 Tazobact 3.375 gm In Sodium Chloride 0.9% 50 ml @ 100 mls/hr IV Q8H EB Rx#:[id number] metroNIDAZOLE 500mg/NS 200 100mL 500 mg In 100 ml @ 100 mls/hr IV Q8HR EB Rx #:[id number] Other: # Voids 1 # Bowel Movements 0 Stool Characteristics Liquid Liquid Active Medications: Current Medications Acetaminophen/Hydrocodone Bitart ([place] 5mg/325mg) 1 tab PO Q4H PRN PRN Reason: Abdominal Cramping Stop: 04/02/17 09:39 Amitriptyline HCl (Elavil) 25 mg PO HS EB PRN Reason: Protocol Stop: 04/02/17 20:59 Dicyclomine HCl (Bentyl) 10 mg PO BID EB Stop: 04/02/17 09:44 Last Admin: 02/01/17 10:01 Dose: 10 mg Hydralazine HCl (Apresoline 20 Mg/Ml) 10 mg IV Q4HR PRN PRN Reason: HTN Stop: 04/01/17 18:27 Hydromorphone HCl (Dilaudid) 1 mg IVP Q3HR PRN PRN Reason: Abdominal Pain Stop: 04/02/17 09:40 Last Admin: 02/01/17 09:47 Dose: 1 mg Dextrose/Sodium Chloride (D5-0.45ns) 1,000 mls @ 100 mls/hr IV .Q10H EB Stop: 04/01/17 17:33 Last Infusion: 02/01/17 06:18 Dose: 100 mls/hr Piperacillin Sod/Tazobactam (Sod 3.375 gm/ Sodium Chloride) 50 mls @ 100 mls/ hr IV Q8H EB Stop: 04/01/17 17:59 Last Admin: 02/01/17 09:47 Dose: 100 mls/hr Vancomycin HCl 1 gm/ Sodium (Chloride) 250 mls @ 166.667 mls/hr IV Q24H EB Stop: 04/02/17 09:44 Lactobacillus Rhamnosus (Culturelle) 1 each PO DAILY EB Stop: 04/03/17 08:59 Miscellaneous (Probiotic Screen) 1 ea MC PRN PRN PRN Reason: PROTOCOL Stop: 04/02/17 10:14 Ondansetron HCl (Zofran) 4 mg IV Q3H PRN PRN Reason: Nausea / Vomiting Stop: 04/02/17 09:54 Last Admin: 02/01/17 09:56 Dose: 4 mg - Procedures Procedures: Procedures Procedure Code Date ERCP REMOVE DUCT CALCULI 11281 01/12/17 EXTIRPATION OF MATTER FROM COMMON BILE DUCT, ENDO [id number] 01/12/17 FLUOROSCOPY OF BILE DUCTS USING LOW OSMOLAR CONTRAST [id number] 01/12/17 RELEASE PERITONEUM, OPEN APPROACH [id number] 01/12/17 REMOVAL OF GALLBLADDER 25022 01/12/17 RESECTION OF GALLBLADDER, OPEN APPROACH [id number] 01/12/17
--- NOTE | 2017-02-01 16:12 | History & Physical ---
ADMIT DATE: 02/01/2017 CHIEF COMPLAINT: Abdominal pain x 1 week and nausea, vomiting x 2 days. HISTORY OF PRESENT ILLNESS: This is a 51-year-old female, last admitted on January 12, diagnosed with acute cholecystitis. She underwent an open cholecystectomy with lysis of adhesions on 01/19/2017. She does have a history of multiple surgeries in the past and on her last admission, she also underwent an ERCP. She underwent ERCP with removal of common bile duct stone. She also had a colonoscopy about 2 months ago with polypectomy ____. She presented to the ER yesterday with the above-mentioned complaints, which started about a week ago. She did have a followup with Dr. Woods, and at that time, she appeared to be stable and actually was doing well, tolerating her p.o.'s, but again started having this colicky pain and that has not improved. Her nausea, vomiting started about 2 days ago and is mostly food material. She reports no ____ emesis. She denies any fever or chills. She does complain of spasms, which are somewhat chronic on her. She does have them for years, but has not been diagnosed with irritable bowel syndrome. Pertinent findings on admission include a CT of the pelvis and abdomen showing edema in the anterior abdominal wall with subcutaneous soft tissue swelling consistent with cellulitis with edema extending into the anterior abdominal mesentery ____. Inflammatory changes most likely due to postop intervention. On further questioning, the patient states that she had a mild discharge from her wound about a week ago on the superior part of her incision, but since then has had no further discharge. PAST MEDICAL HISTORY: As noted above, also GERD, hypertension, depression/anxiety and drug-seeking behavior. PAST SURGICAL HISTORY: Include a hysterectomy roughly around 1989. FAMILY HISTORY: Mother at age 46, possibly secondary to a heart attack. Father is diabetic. SOCIAL HISTORY: She denies alcohol in the last month. When she drinks, she drinks very seldomly. She is a former smoker about [id number] and quit about 2-1/2 years ago. She lives at home with family. ALLERGIES: ASPIRIN, CEPHALEXIN, CODEINE, AND KETOROLAC. OUTPATIENT MEDICATIONS: Metoprolol 50 mg every day. REVIEW OF SYSTEMS: CONSTITUTIONAL: She denies any fever, chills, any weight loss. CARDIOVASCULAR: No chest pain or palpitations. PULMONARY: No cough or sputum production. GASTROINTESTINAL: Please refer to HPI. She does state that whenever she eats, she has loose BMs, which is somewhat chronic, but denies any acute diarrhea. She denies any bloody stools (bright red blood per rectum or melena). GENITOURINARY: No UTI symptomatology. Denies any changes in her bladder habbits. NEUROLOGICAL: No changes in vision, no headaches. PHYSICAL EXAMINATION: VITAL SIGNS: Temperature 98.4, pulse 70, respirations 17, BP 106/58, and satting 97% on room air. GENERAL: Well nourished, well-developed, appears to be somewhat groggy, but is not in acute distress. She is awake, alert and oriented x 3. HEAD AND NECK: Normocephalic, atraumatic. Pupils reactive to light. Extraocular movements are intact. Oropharynx moist and clear. CARDIAC: Regular rate and rhythm without any murmurs. LUNGS: Clear to auscultation bilaterally. ABDOMEN: Soft, supple with mild tenderness to palpation around the incision site. The incision itself appears to be clean, dry, and intact with no drainage and no surrounding erythema and bowel sounds are normal. EXTREMITIES: Lower extremities, no pedal edema noted. LABORATORY DATA: White count 7.0, H and H 10/32, platelet count of 524. Sodium 138, potassium 3.4, otherwise, chemistries were within normal limits. AST 11, ALT 5, troponins 0.01. DIAGNOSTICS: Please refer to the HPI. IMPRESSION: 1. Abdominal pain, likely secondary to cellulitis/edema of the anterior abdominal wall. 2. Status post open cholecystectomy with lysis of adhesions on 01/19/2017. 3. History of recent colonoscopy with polypectomy. 4. Mild anemia, likely postop. 5. Possible irritable bowel syndrome. 6. History of drug-seeking behavior. 7. History of hypertension. PLAN: The patient has been admitted to the medical/surgical floor where she has been placed on IV fluids, currently n.p.o., and has been started on IV antibiotics. She has been placed on pain control and IV Zofran p.r.n. I will ask for a KUB and will also ask for a surgical eval for further management and care. JOB# [id number]
[2017-02-01] MEDS: D5-0.45NS 1,000 ML IV SCH (17:40)
[2017-02-01] MEDS ORDERED: Potassium Chloride 40 MEQ, Lidocaine 1% 20mL Vial 25 MG in Sodium Chloride 0.9% 250 ML IV ONE (19:19)
[2017-02-01] MEDS ORDERED: KCL 20mEq/100mL Premix 40 MEQ/200 ML PIGGYBACK IV ONE (20:50)
[2017-02-01] MEDS: KCL 20mEq/100mL Premix 20 MEQ/100 ML PIGGYBACK IV SCH ×2 (21:47→23:24)
[2017-02-02] MEDS: HYDROmorphone 1 mg/mL 1mL Syr IVP PRN ×4 (03:58→13:46)
[2017-02-02 06:06] LABS: % BASOPHILS 0.6 % (0.0-2.0); % EOSINOPHILS 6.3 % (0.0-5.0); % LYMPHOCYTES 23.9 % (20.0-50.0); % MONOCYTES 9.5 % (2.0-10.0); % NEUTROPHILS 59.7 % (40.0-80.0); HEMOGLOBIN 9.8 gm/dL (12-16); MEAN CELL VOLUME 91.1 fl (81-100); MEAN CORPUSCULAR HEMOGLOBIN 30.9 pg (27.0-31.0); MEAN PLATELET VOLUME 7.4 fl; NEUTROPHILE ABSOLUTE 3.6 Th/cmm (1.8-8.0); PLATELET COUNT 433 Th/cmm (150-400); RED BLOOD COUNT 3.17 Mil/cmm (3.80-5.10); RED CELL DISTRIBUTION WIDTH 12.5 % (11.5-20.0)
[2017-02-02 06:07] LABS: HEMATOCRIT 28.9 % (41.0-60)
[2017-02-02 06:37] LABS: ALB/GLOB RATIO 1.3 (1.0-1.8); ALKALINE PHOSPHATASE 52 U/L (34-104); ANION GAP 7.8 (7.0-16.0); BILIRUBIN,TOTAL 0.3 mg/dL (0.3-1.0); BUN - UREA NITROGEN 4 mg/dL (7-25); BUN/CREATININE RATIO 5.7; CALCIUM SERUM 8.9 mg/dL (8.6-10.3); CARBON DIOXIDE 26.7 mEq/L (21.0-31.0); CHLORIDE 108 mEq/L (98-107); CREATININE - SERUM 0.7 mg/dL (0.6-1.2); GLUCOSE 105 mg/dL (70-105); MAGNESIUM 1.7 mg/dL (1.9-2.7); POTASSIUM SERUM 3.5 mEq/L (3.5-5.1); SGOT 10 U/L (13-39); SGPT/ALT 4 U/L (7-52); SODIUM SERUM 139 mEq/L (136-145)
[2017-02-02] MEDS: D5-0.45NS 1,000 ML IV SCH (08:38)
[2017-02-02] MEDS: Dicyclomine 10 mg Cap PO SCH ×2 (08:38→17:18)
[2017-02-02] MEDS ORDERED: Lactobacillus Rhamnosus 10 Billion CFU Capsule PO SCH (09:00)
--- NOTE | 2017-02-02 11:34 | General Progress Note ---
Subjective - Review of Systems Service Date: 02/02/17 Events since last encounter: labs ok for D C Objective - Results Result Diagrams: 02/02/17 05:35 02/02/17 05:35 Recent Labs: Laboratory Last Values WBC 6.0 Th/cmm (4.8-10.8) 02/02/17 05:35 RBC 3.17 Mil/cmm (3.80-5.10) L 02/02/17 05:35 Hgb 9.8 gm/dL (12-16) L 02/02/17 05:35 Hct 28.9 % (41.0-60) L D 02/02/17 05:35 MCV 91.1 fl (81-100) 02/02/17 05:35 MCH 30.9 pg (27.0-31.0) 02/02/17 05:35 MCHC Differential 34.0 pg (28.0-36.0) 02/02/17 05:35 RDW 12.5 % (11.5-20.0) 02/02/17 05:35 Plt Count 433 Th/cmm (150-400) H 02/02/17 05:35 MPV 7.4 fl 02/02/17 05:35 Neutrophils % 59.7 % (40.0-80.0) 02/02/17 05:35 Lymphocytes % 23.9 % (20.0-50.0) 02/02/17 05:35 Monocytes % 9.5 % (2.0-10.0) 02/02/17 05:35 Eosinophils % 6.3 % (0.0-5.0) H 02/02/17 05:35 Basophils % 0.6 % (0.0-2.0) 02/02/17 05:35 PT 11.0 SECONDS (9.5-11.5) 02/01/17 04:35 INR 1.06 (0.5-1.4) 02/01/17 04:35 PTT (Actin FS) 23.4 SECONDS (26.0-38.0) L 02/01/17 06:34 D-Dimer 1020 ng/mL (100-400) H 01/31/17 15:08 Sodium 139 mEq/L (136-145) 02/02/17 05:35 Potassium 3.5 mEq/L (3.5-5.1) 02/02/17 05:35 Chloride 108 mEq/L (98-107) H 02/02/17 05:35 Carbon Dioxide 26.7 mEq/L (21.0-31.0) 02/02/17 05:35 Anion Gap 7.8 (7.0-16.0) 02/02/17 05:35 BUN 4 mg/dL (7-25) L 02/02/17 05:35 Creatinine 0.7 mg/dL (0.6-1.2) 02/02/17 05:35 Est GFR ( Amer) > 60.0 ml/min (>90) 02/02/17 05:35 Est GFR (Non-Af Amer) > 60.0 ml/min 02/02/17 05:35 BUN/Creatinine Ratio 5.7 02/02/17 05:35 Glucose 105 mg/dL (70-105) 02/02/17 05:35 Whole Bld Lactic Acid 0.61 mmol/L (0.60-1.99) 02/01/17 04:35 Calcium 8.9 mg/dL (8.6-10.3) 02/02/17 05:35 Magnesium 1.7 mg/dL (1.9-2.7) L 02/02/17 05:35 Total Bilirubin 0.3 mg/dL (0.3-1.0) 02/02/17 05:35 AST 10 U/L (13-39) L 02/02/17 05:35 ALT 4 U/L (7-52) L 02/02/17 05:35 Alkaline Phosphatase 52 U/L (34-104) 02/02/17 05:35 Creatine Kinase 18 U/L (30-223) L 01/31/17 15:08 Troponin I 0.01 ng/mL (0.01-0.05) 01/31/17 15:08 B-Natriuretic Peptide < 5.0 pg/mL (5.0-100.0) L 01/31/17 15:08 Total Protein 5.8 gm/dL (6.0-8.3) L 02/02/17 05:35 Albumin 3.3 gm/dL (3.7-5.3) L 02/02/17 05:35 Globulin 2.5 gm/dL 02/02/17 05:35 Albumin/Globulin Ratio 1.3 (1.0-1.8) 02/02/17 05:35 Triglycerides 167 mg/dL (<150) H 01/31/17 15:08 Cholesterol 156 mg/dL (<200) 01/31/17 15:08 LDL Cholesterol Direct 93 mg/dL (75-193) 01/31/17 15:08 HDL Cholesterol 39 mg/dL (23-92) 01/31/17 15:08 Amylase 18 U/L (29-103) L 01/31/17 15:08 Lipase 19 U/L (11-82) 02/01/17 04:35 Ethyl Alcohol < 10 mg/dL (0-10) 01/31/17 15:08 - Physical Exam Vitals and I&O: Vital Signs Temp 97.9 F 02/02/17 07:00 Pulse 72 02/02/17 07:00 Resp 16 02/02/17 08:00 BP 109/65 02/02/17 07:00 Pulse Ox 100 02/02/17 07:00 Intake & Output 02/01/17 02/02/17 02/02/17 18:59 06:59 18:59 Intake Total 837.187 0488.833 Balance 073.590 8231.833 Weight (lbs) 49.895 kg Intake: Intake, IV Amount 794.473 6443.833 D5-0.45NS 1,000 ml @ 100 794.129 5334 mls/hr IV .Q10H EB Rx#: [id number] KCL 20mEq/100mL Premix 20 80.833 meq In 100 ml @ 50 mls/ hr IV Q2H EB Rx#: [id number] Piperacillin Sodium/ 50 100 Tazobact 3.375 gm In Sodium Chloride 0.9% 50 ml @ 100 mls/hr IV Q8H EB Rx#:[id number] Vancomycin HCl 1 gm In 250 Sodium Chloride 0.9% 250 ml @ 166.667 mls/hr IV Q24H EB Rx#:[id number] Oral 200 Other: # Voids 2 # Bowel Movements 1 Stool Characteristics Liquid Active Medications: Current Medications Acetaminophen/Hydrocodone Bitart ([place] 5mg/325mg) 1 tab PO Q4H PRN PRN Reason: Abdominal Cramping Stop: 04/02/17 09:39 Amitriptyline HCl (Elavil) 25 mg PO HS EB PRN Reason: Protocol Stop: 04/02/17 20:59 Last Admin: 02/01/17 20:50 Dose: 25 mg Dicyclomine HCl (Bentyl) 10 mg PO BID EB Stop: 04/02/17 09:44 Last Admin: 02/02/17 08:38 Dose: 10 mg Hydralazine HCl (Apresoline 20 Mg/Ml) 10 mg IV Q4HR PRN PRN Reason: HTN Stop: 04/01/17 18:27 Hydromorphone HCl (Dilaudid) 1 mg IVP Q3HR PRN PRN Reason: Abdominal Pain Stop: 04/02/17 09:40 Last Admin: 02/02/17 10:34 Dose: 1 mg Dextrose/Sodium Chloride (D5-0.45ns) 1,000 mls @ 100 mls/hr IV .Q10H EB Stop: 04/01/17 17:33 Last Admin: 02/02/17 08:38 Dose: 100 mls/hr Piperacillin Sod/Tazobactam (Sod 3.375 gm/ Sodium Chloride) 50 mls @ 100 mls/ hr IV Q8H EB Stop: 04/01/17 17:59 Last Admin: 02/02/17 10:14 Dose: 100 mls/hr Vancomycin HCl 1 gm/ Sodium (Chloride) 250 mls @ 165 mls/hr IV Q12H EB Stop: 04/03/17 10:59 Magnesium Sulfate 1 gm/ Sodium (Chloride) 52 mls @ 52 mls/hr IV X1 ONE Stop: 02/02/17 12:29 Lactobacillus Rhamnosus (Culturelle) 1 each PO DAILY EB Stop: 04/03/17 08:59 Last Admin: 02/02/17 08:38 Dose: 1 each Miscellaneous (Probiotic Screen) 1 ea MC PRN PRN PRN Reason: PROTOCOL Stop: 04/02/17 10:14 Miscellaneous (Vancomycin Iv Per Pharmacy) 1 ea MC PRN PRN PRN Reason: RX DOSING Stop: 04/03/17 09:09 Ondansetron HCl (Zofran) 4 mg IV Q3H PRN PRN Reason: Nausea / Vomiting Stop: 04/02/17 09:54 Last Admin: 02/02/17 10:34 Dose: 4 mg - Procedures Procedures: Procedures Procedure Code Date ERCP REMOVE DUCT CALCULI 88724 01/12/17 EXTIRPATION OF MATTER FROM COMMON BILE DUCT, ENDO [id number] 01/12/17 FLUOROSCOPY OF BILE DUCTS USING LOW OSMOLAR CONTRAST [id number] 01/12/17 RELEASE PERITONEUM, OPEN APPROACH [id number] 01/12/17 REMOVAL OF GALLBLADDER [id number] 01/12/17 RESECTION OF GALLBLADDER, OPEN APPROACH [id number] 01/12/17
--- NOTE | 2017-02-02 20:45 | Discharge Summary ---
DATE OF DISCHARGE: 02/02/2017 ADMITTING DIAGNOSES: 1. Abdominal pain. 2. Cellulitis/edema of the anterior abdominal wall. 3. Recent history of open cholecystectomy with lysis of adhesions done on 01/19/2017. SECONDARY DIAGNOSES: 1. Anemia, likely postop, possible irritable bowel syndrome. 2. History of essential hypertension. 3. Recent history of colonoscopy with polypectomy. 4. Multiple abdominal surgeries. 5. History of drug-seeking behavior. DISCHARGE DIAGNOSES: 1. Abdominal pain, improved. 2. Abdominal wall cellulitis/edema, stable. 3. Recent history of open cholecystectomy with lysis of adhesions done on 01/19/2017. CONSULTANTS: General Surgery, Dr. Woods. MAJOR PROCEDURES/DIAGNOSTICS: She had a CT scan of the abdomen and pelvis showing edema in the anterior abdominal wall with cutaneous soft tissue swelling consistent with cellulitis or edema extending into the anterior abdominal mesentery. The inflammatory changes most likely due to postop intervention. BRIEF HOSPITAL COURSE: This is a 51-year-old female who was admitted to this facility on 01/12/2017 and diagnosed with acute cholecystitis. She underwent open cholecystectomy with lysis of adhesions on 01/19/2017 and had noncomplicated postop care. She also of note underwent ERCP prior to that and had a colonoscopy about 2 months prior to that secondary to polypectomy. She has a history of chronic abdominal pain since she had a hysterectomy many years ago. She has not been diagnosed with any other ailments such as irritable bowel syndrome or fibromyalgia, but she does have a tendency to ask for strong pain medications. She was admitted to the medical/surgical floor and placed on IV vancomycin, IV fluids and supportive care including pain control and antiemetics. She was also placed on Bentyl and Elavil. She was seen by Dr. Woods and surgery was needed, given that the wound is clean, dry and intact and her physical exam is benign with no erythema, no warmth to touch. She has not had any fevers since admission and her labs show no leukocytosis. DISCHARGE MEDICATIONS: Metoprolol 50 every day, Tylenol 500 mg q. 4 p.r.n. for pain, Bentyl 10 mg b.i.d., Elavil 25 at bedtime, and IV vancomycin 1 gram every day for 14 days. DISPOSITION: The patient will be discharged home to self-care with home health for IV antibiotics. [facility]# [id number]
== END 2017-02-02 15:10 | disposition home or self-care (01) | DRG 720 ==
LOC: ER 13:52 → MSI 15:35
PROVIDERS: ADMIT Internal Medicine; ATTEND Internal Medicine
PROC: 02HV33Z Insertion of Infusion Device into Superior Vena Cava, Percutaneous Approach (ICD-10-PCS; principal; 2017-02-01)
DX: A41.9 Sepsis, unspecified organism (principal); L03.311 Cellulitis of abdominal wall; I10 Essential (primary) hypertension; D64.9 Anemia, unspecified; Z66 Do not resuscitate; K58.9 Irritable bowel syndrome, unspecified; K21.9 Gastro-esophageal reflux disease without esophagitis; F17.210 Nicotine dependence, cigarettes, uncomplicated; K29.70 Gastritis, unspecified, without bleeding; E86.0 Dehydration; Z90.710 Acquired absence of both cervix and uterus; Z82.49 Family history of ischemic heart disease and other diseases of the circulatory system; Z83.3 Family history of diabetes mellitus; Z88.6 Allergy status to analgesic agent; Z88.5 Allergy status to narcotic agent; Z88.8 Allergy status to other drugs, medicaments and biological substances; Z90.49 Acquired absence of other specified parts of digestive tract
CPT/HCPCS: 36415-UA; 71010-TC; 74000-TC; 80053-TC; 80061-TC; 80320-TC; 82150-TC; 82550-TC; 83605; 83690-TC; 83735-TC; 83880-TC; 84484-TC; 85025-TC; 85379-TC; 85610-TC; 85730-TC; 90799; 93005; 96374; J0456; J1170; J2001; J2405; J2543; J3370; J3475; J3480; J7030; Z7610

== ENCOUNTER 2017-02-13 11:58 | Emergency (ER) | payer MEDICAID ==
[2017-02-13] MEDS ORDERED: Sodium Chloride 0.9% 1,000 ML IV ONE (12:29)
[2017-02-13 12:48] LABS: % BASOPHILS 0.9 % (0.0-2.0); % EOSINOPHILS 8.2 % (0.0-5.0); % LYMPHOCYTES 18.8 % (20.0-50.0); % MONOCYTES 10.1 % (2.0-10.0); HEMOGLOBIN 10.9 gm/dL (12-16); MEAN CELL VOLUME 91.5 fl (81-100); MEAN CORPUSCULAR HEMOGLOBIN 30.8 pg (27.0-31.0); MEAN CORPUSCULAR HGB CONC 33.7 pg (28.0-36.0); MEAN PLATELET VOLUME 8.3 fl; NEUTROPHILE ABSOLUTE 5.2 Th/cmm (1.8-8.0); RED BLOOD COUNT 3.55 Mil/cmm (3.80-5.10); RED CELL DISTRIBUTION WIDTH 13.3 % (11.5-20.0)
[2017-02-13 12:49] LABS: HEMATOCRIT 32.5 % (41.0-60); PLATELET COUNT 294 Th/cmm (150-400); WHITE BLOOD COUNT 8.4 Th/cmm (4.8-10.8)
[2017-02-13 12:49] LABS: URINE BILIRUBIN NEGATIVE (NEGATIVE); URINE BLOOD TRACE (NEGATIVE); URINE GLUCOSE (UA) NEGATIVE (NEGATIVE); URINE KETONE NEGATIVE (NEGATIVE); URINE PH 5.5 (4.6 - 8.0); URINE PROTEIN NEGATIVE (NEGATIVE); URINE UROBILINOGEN 0.2 E.U./dL (0.2 - 1.0)
[2017-02-13 12:53] LABS: URINE COLOR YELLOW
[2017-02-13 12:56] LABS: URINE BACTERIA FEW /hpf (NONE SEEN); URINE EPITHELIAL CELLS MODERATE /lpf (FEW)
[2017-02-13 13:05] LABS: AMYLASE SERUM 40 U/L (29-103); LIPASE 32 U/L (11-82); PROTHROMBIN TIME (TEST) 12.2 SECONDS (9.5-11.5)
[2017-02-13 13:06] LABS: INR 1.16 (0.5-1.4)
[2017-02-13] MEDS ORDERED: HYDROmorphone 1 mg/mL 1mL Syr IVP STA ×2 (13:06→19:49)
[2017-02-13 13:08] LABS: ALB/GLOB RATIO 1.5 (1.0-1.8); ALKALINE PHOSPHATASE 77 U/L (34-104); ANION GAP 11.1 (7.0-16.0); BILIRUBIN,TOTAL 0.3 mg/dL (0.3-1.0); BUN - UREA NITROGEN 7 mg/dL (7-25); BUN/CREATININE RATIO 11.7; CALCIUM SERUM 9.5 mg/dL (8.6-10.3); CARBON DIOXIDE 26.4 mEq/L (21.0-31.0); CHLORIDE 103 mEq/L (98-107); CHOLESTEROL 184 mg/dL (<200); CREATININE - SERUM 0.6 mg/dL (0.6-1.2); GLUCOSE 99 mg/dL (70-105); POTASSIUM SERUM 3.5 mEq/L (3.5-5.1); SGOT 7 U/L (13-39); SGPT/ALT 5 U/L (7-52); SODIUM SERUM 137 mEq/L (136-145); TRIGLYCERIDES 206 mg/dL (<150)
[2017-02-13] MEDS ORDERED: HYDROmorphone 1 mg/mL 1mL Syr ONE ×2 (13:08→19:53)
--- NOTE | 2017-02-13 13:19 | ED Physician Chart ---
ED Chief Complaint/HPI - Patient Information Date Seen:: 02/13/17 Time Seen:: 12:00 Chief Complaint:: Abdominal Pain History of Present Illness:: onset x one day of intermittent, diffuse, crampy abdominal pain, N/V/D; no H/As , neck pain, C/P, cough, SOB, flank pain, fever, chills, or urinary s/s Allergies:: Allergies Allergy/AdvReac Type Severity Reaction Status Date / Time aspirin Allergy Verified 02/13/17 12:18 cephalexin [From Keflex] Allergy Verified 02/13/17 12:18 codeine Allergy Verified 02/13/17 12:18 ketorolac [From Toradol] Allergy Verified 02/13/17 12:18 Vitals:: Vital Signs - 8 hr 02/13/17 12:00 Temp 98.5 F HR 102 RR 18 BP 124/81 O2 Sat % 97 Historian:: Patient Review:: Nurse's Note Reviewed, Old Chart Reviewed ED Review of Systems - Review of Systems General/Constitutional: Fever, No chills, No weight loss, No weakness, No diaphoresis, No edema, No loss of appetite Skin: No skin lesions, No rash, No bruising Head: No headache, No light-headedness Eyes: No loss of vision, No pain, No diplopia ENT: No earache, No nasal drainage, No sore throat, No tinnitus Neck: No neck pain, No swelling, No thyromegaly, No stiffness, No mass noted Cardio Vascular: No chest pain, No palpitations, No PND, No orthopnea, No edema Pulmonary: No SOB, No cough, No sputum, No wheezing GI: Nausea, Vomiting, Diarrhea, Pain, No melena, No hematochezia, No constipation, No hematemesis G/U: No dysuria, No frequency, No hematuria Mothers Helper: No vaginal discharge, No abnormal vaginal bleed, No contraction Musculoskeletal: No bone or joint pain, No back pain, No muscle pain Endocrine: No polyuria, No polydipsia Psychiatric: No prior psych history, No depression, No anxiety, No suicidal ideation, No homicidal ideation, No auditory hallucination, No visual hallucination Hematopoietic: No bruising, No lymphadenopathy Allergic/Immuno: No urticaria, No angioedema Neurological: No syncope, No focal symptoms, No weakness, No paresthesia, No headache, No seizure, No dizziness, No confusion, No vertigo ED Past Medical History - Past Medical History Obtainable: Yes Past Medical History: No significant medical hx Family History: HTN Social History: Surgical History: Appendectomy, Cholecystectomy, Hysterectomy Psychiatricy History: None Medication: Reviewed Family Medical History - Family Member Father History Unknown: Yes Age: 73 Ethnicity: Non- Living Status: Still Living Hx Family Cancer: No Hx Family Coronary Artery Disease: No Hx Family Congestive Heart Failure: No Hx Family Hypertension: No Hx Family Stroke: No Hx Family Diabetes: Yes Hx Family Seizures: No Hx Family Dementia: No Hx Family AIDS: No Hx Family HIV: No Hx Family COPD: No Hx Family Hepatitis: No Hx Family Psychiatric Problems: No Hx Family Tuberculosis: No MOTHER History Unknown: Yes Age: 46 Ethnicity: Non- Living Status: Hx Family Cancer: No Hx Family Coronary Artery Disease: No Hx Family Congestive Heart Failure: No Hx Family Hypertension: No Hx Family Stroke: No Hx Family Diabetes: No Hx Family Seizures: No Hx Family Dementia: No Hx Family AIDS: No Hx Family HIV: No Hx Family COPD: No Hx Family Hepatitis: No Hx Family Psychiatric Problems: No Hx Family Tuberculosis: No ED Physical Exam - Physical Examination General/Constitutional: Awake, Well-developed, well-nourished, Alert, No distress, GCS 15, Non-toxic appearing, Ambulatory Head: Atraumatic Eyes: Lids, conjuctiva normal, PERRL, EOMI Skin: Nl inspection, No rash, No skin lesions, No ecchymosis, Well hydrated, No lymphadenopathy ENMT: External ears, nose nl, Nasal exam nl, Lips, teeth, gums nl Neck: Nontender, Full ROM w/o pain, No JVD, No nuchal rigidity, No bruit, No mass, No stridor Respiratory: Nl effort/Exclusion, Clear to Auscultation, No Wheeze/Rhonchi/Rales Cardio Vascular: RRR, No murmur, gallop, rubs, NL S1 S2 GI: No tenderness/rebounding/guarding, No organomegaly, No hernia, Normal BS's, Nondistended, No mass/bruits, No McBurney tenderness : No CVA tenderness Extremities: No tenderness or effusion, Full ROM, normal strength in all extremities, No edema, Normal digits & nails Neuro/Psych: Alert/oriented, DTR's symmetric, Normal sensory exam, Normal motor strength, Judgement/insight normal, Mood normal, Normal gait, No focal deficits Misc: Normal back, No paraspinal tenderness ED Labs/Radiology/EKG Results - Lab Results Results: Laboratory Tests 02/13/17 02/13/17 02/13/17 12:30 12:39 12:39 WBC 8.4 D RBC 3.55 L Hgb 10.9 L Hct 32.5 L D MCV 91.5 MCH 30.8 MCHC Differential 33.7 RDW 13.3 Plt Count 294 D MPV 8.3 Neutrophils % 62.0 Lymphocytes % 18.8 L Monocytes % 10.1 H Eosinophils % 8.2 H Basophils % 0.9 PT 12.2 H INR 1.16 Sodium Potassium Chloride Carbon Dioxide Anion Gap BUN Creatinine Est GFR ( Amer) Est GFR (Non-Af Amer) BUN/Creatinine Ratio Glucose Calcium Total Bilirubin AST ALT Alkaline Phosphatase Creatine Kinase Troponin I B-Natriuretic Peptide Total Protein Albumin Globulin Albumin/Globulin Ratio Triglycerides Cholesterol LDL Cholesterol Direct HDL Cholesterol Amylase Lipase Urine Source CLEAN C Urine Color YELLOW Urine Clarity CLEAR Urine pH 5.5 Ur Specific [place] <= 1.005 Urine Protein NEGATIVE Urine Glucose (UA) NEGATIVE Urine Ketones NEGATIVE Urine Blood TRACE Urine Nitrate NEGATIVE Urine Bilirubin NEGATIVE Urine Urobilinogen 0.2 Ur Leukocyte Esterase TRACE H Urine RBC 2-5 Urine WBC 2-5 Ur Epithelial Cells MODERATE Urine Bacteria FEW Urine Yeast FEW H 02/13/17 02/13/17 02/13/17 12:39 12:39 12:39 WBC RBC Hgb Hct MCV MCH MCHC Differential RDW Plt Count MPV Neutrophils % Lymphocytes % Monocytes % Eosinophils % Basophils % PT INR Sodium 137 Potassium 3.5 Chloride 103 Carbon Dioxide 26.4 Anion Gap 11.1 BUN 7 Creatinine 0.6 Est GFR ( Amer) > 60.0 Est GFR (Non-Af Amer) > 60.0 BUN/Creatinine Ratio 11.7 Glucose 99 Calcium 9.5 Total Bilirubin 0.3 AST 7 L ALT 5 L Alkaline Phosphatase 77 Creatine Kinase 10 L Troponin I < 0.01 L B-Natriuretic Peptide 8.4 Total Protein 7.1 Albumin 4.2 Globulin 2.9 Albumin/Globulin Ratio 1.5 Triglycerides 206 H Cholesterol 184 LDL Cholesterol Direct 98 HDL Cholesterol 42 Amylase Lipase Urine Source Urine Color Urine Clarity Urine pH Ur Specific [place] Urine Protein Urine Glucose (UA) Urine Ketones Urine Blood Urine Nitrate Urine Bilirubin Urine Urobilinogen Ur Leukocyte Esterase Urine RBC Urine WBC Ur Epithelial Cells Urine Bacteria Urine Yeast 02/13/17 12:39 WBC RBC Hgb Hct MCV MCH MCHC Differential RDW Plt Count MPV Neutrophils % Lymphocytes % Monocytes % Eosinophils % Basophils % PT INR Sodium Potassium Chloride Carbon Dioxide Anion Gap BUN Creatinine Est GFR ( Amer) Est GFR (Non-Af Amer) BUN/Creatinine Ratio Glucose Calcium Total Bilirubin AST ALT Alkaline Phosphatase Creatine Kinase Troponin I B-Natriuretic Peptide Total Protein Albumin Globulin Albumin/Globulin Ratio Triglycerides Cholesterol LDL Cholesterol Direct HDL Cholesterol Amylase 40 Lipase 32 Urine Source Urine Color Urine Clarity Urine pH Ur Specific [place] Urine Protein Urine Glucose (UA) Urine Ketones Urine Blood Urine Nitrate Urine Bilirubin Urine Urobilinogen Ur Leukocyte Esterase Urine RBC Urine WBC Ur Epithelial Cells Urine Bacteria Urine Yeast - EKG Interpretations EKG Time:: 12:35 Rate & Rhythm: 79; NSR Comments:: non-specific st-t changes ED Septic Shock - . Is Septic Shock (SBP<90, OR Lactate>4 mmol\L) present?: No - <6hrs of presentation: Vital Signs: Vital Signs - 8 hr 02/13/17 12:00 Temp 98.5 F HR 102 RR 18 BP 124/81 O2 Sat % 97
[2017-02-13] MEDS ORDERED: Fleet Enema 135 mL RC ONE (19:56)
--- NOTE | 2017-02-13 20:36 | ED Physician Chart ---
ED Chief Complaint/HPI - Patient Information Date Seen:: 02/13/17 Time Seen:: 20:31 Chief Complaint:: Addendum Allergies:: Allergies Allergy/AdvReac Type Severity Reaction Status Date / Time aspirin Allergy Verified 02/13/17 12:18 cephalexin [From Keflex] Allergy Verified 02/13/17 12:18 codeine Allergy Verified 02/13/17 12:18 ketorolac [From Toradol] Allergy Verified 02/13/17 12:18 Vitals:: Vital Signs - 8 hr 02/13/17 02/13/17 02/13/17 13:32 18:00 19:13 Temp 98.0 F HR 79 72 95 RR 17 16 14 BP 134/72 141/97 142/85 O2 Sat % 98 99 96 02/13/17 20:19 Temp 98.2 F HR 72 RR 18 BP O2 Sat % 98 Family Medical History - Family Member Father History Unknown: Yes Age: 73 Ethnicity: Non- Living Status: Still Living Hx Family Cancer: No Hx Family Coronary Artery Disease: No Hx Family Congestive Heart Failure: No Hx Family Hypertension: No Hx Family Stroke: No Hx Family Diabetes: Yes Hx Family Seizures: No Hx Family Dementia: No Hx Family AIDS: No Hx Family HIV: No Hx Family COPD: No Hx Family Hepatitis: No Hx Family Psychiatric Problems: No Hx Family Tuberculosis: No MOTHER History Unknown: Yes Age: 46 Ethnicity: Non- Living Status: Hx Family Cancer: No Hx Family Coronary Artery Disease: No Hx Family Congestive Heart Failure: No Hx Family Hypertension: No Hx Family Stroke: No Hx Family Diabetes: No Hx Family Seizures: No Hx Family Dementia: No Hx Family AIDS: No Hx Family HIV: No Hx Family COPD: No Hx Family Hepatitis: No Hx Family Psychiatric Problems: No Hx Family Tuberculosis: No ED Labs/Radiology/EKG Results - Lab Results Results: Laboratory Tests 02/13/17 02/13/17 02/13/17 12:12 12:30 12:39 WBC 8.4 D RBC 3.55 L Hgb 10.9 L Hct 32.5 L D MCV 91.5 MCH 30.8 MCHC Differential 33.7 RDW 13.3 Plt Count 294 D MPV 8.3 Neutrophils % 62.0 Lymphocytes % 18.8 L Monocytes % 10.1 H Eosinophils % 8.2 H Basophils % 0.9 PT INR Sodium Potassium Chloride Carbon Dioxide Anion Gap BUN Creatinine Est GFR ( Amer) Est GFR (Non-Af Amer) BUN/Creatinine Ratio Glucose Calcium Total Bilirubin AST ALT Alkaline Phosphatase Creatine Kinase Troponin I B-Natriuretic Peptide Total Protein Albumin Globulin Albumin/Globulin Ratio Triglycerides Cholesterol LDL Cholesterol Direct HDL Cholesterol Amylase Lipase Serum , Qual NEGATIVE Urine Source CLEAN C Urine Color YELLOW Urine Clarity CLEAR Urine pH 5.5 Ur Specific [place] <= 1.005 Urine Protein NEGATIVE Urine Glucose (UA) NEGATIVE Urine Ketones NEGATIVE Urine Blood TRACE Urine Nitrate NEGATIVE Urine Bilirubin NEGATIVE Urine Urobilinogen 0.2 Ur Leukocyte Esterase TRACE H Urine RBC 2-5 Urine WBC 2-5 Ur Epithelial Cells MODERATE Urine Bacteria FEW Urine Yeast FEW H 02/13/17 02/13/17 02/13/17 12:39 12:39 12:39 WBC RBC Hgb Hct MCV MCH MCHC Differential RDW Plt Count MPV Neutrophils % Lymphocytes % Monocytes % Eosinophils % Basophils % PT 12.2 H INR 1.16 Sodium 137 Potassium 3.5 Chloride 103 Carbon Dioxide 26.4 Anion Gap 11.1 BUN 7 Creatinine 0.6 Est GFR ( Amer) > 60.0 Est GFR (Non-Af Amer) > 60.0 BUN/Creatinine Ratio 11.7 Glucose 99 Calcium 9.5 Total Bilirubin 0.3 AST 7 L ALT 5 L Alkaline Phosphatase 77 Creatine Kinase 10 L Troponin I B-Natriuretic Peptide 8.4 Total Protein 7.1 Albumin 4.2 Globulin 2.9 Albumin/Globulin Ratio 1.5 Triglycerides 206 H Cholesterol 184 LDL Cholesterol Direct 98 HDL Cholesterol 42 Amylase Lipase Serum , Qual Urine Source Urine Color Urine Clarity Urine pH Ur Specific [place] Urine Protein Urine Glucose (UA) Urine Ketones Urine Blood Urine Nitrate Urine Bilirubin Urine Urobilinogen Ur Leukocyte Esterase Urine RBC Urine WBC Ur Epithelial Cells Urine Bacteria Urine Yeast 02/13/17 02/13/17 12:39 12:39 WBC RBC Hgb Hct MCV MCH MCHC Differential RDW Plt Count MPV Neutrophils % Lymphocytes % Monocytes % Eosinophils % Basophils % PT INR Sodium Potassium Chloride Carbon Dioxide Anion Gap BUN Creatinine Est GFR ( Amer) Est GFR (Non-Af Amer) BUN/Creatinine Ratio Glucose Calcium Total Bilirubin AST ALT Alkaline Phosphatase Creatine Kinase Troponin I < 0.01 L B-Natriuretic Peptide Total Protein Albumin Globulin Albumin/Globulin Ratio Triglycerides Cholesterol LDL Cholesterol Direct HDL Cholesterol Amylase 40 Lipase 32 Serum , Qual Urine Source Urine Color Urine Clarity Urine pH Ur Specific [place] Urine Protein Urine Glucose (UA) Urine Ketones Urine Blood Urine Nitrate Urine Bilirubin Urine Urobilinogen Ur Leukocyte Esterase Urine RBC Urine WBC Ur Epithelial Cells Urine Bacteria Urine Yeast ED Assessment - Assessment General Assessment: CT abdomen unremarkable except stool retention Abdominal pain alleviated Lab showed UTI, the patient is currently receiving 3-week course of Vancomycin IV at home Spoke with Dr. Sharp who agreed to discharge home. Prescribed Ciprofloxacin 500mg PO bid for 7 days Critical Care Time: 20 min Excludes all billable procedures: Yes This condition life threatening/high prob of deterioration: No ED Septic Shock - . Is Septic Shock (SBP<90, OR Lactate>4 mmol\L) present?: No - <6hrs of presentation: Vital Signs: Vital Signs - 8 hr 02/13/17 02/13/17 02/13/17 13:32 18:00 19:13 Temp 98.0 F HR 79 72 95 RR 17 16 14 BP 134/72 141/97 142/85 O2 Sat % 98 99 96 02/13/17 20:19 Temp 98.2 F HR 72 RR 18 BP O2 Sat % 98 ED Reassessment (Disposition) - Reassessment Reassessment Condition:: Improved - Aftercare/Follow up Instructions Aftercare/Follow-Up Instructions:: Counseled pt regarding lab results/diagnosis & need follow up, Refer to Discharge Instructions - Patient Disposition Discharge/Transfer:: Home ED Discharge Plan - Patient Disposition Instructions: Abdominal Pain, Constipation, Adult, [id number], Urinary Tract Infection, [id number]
--- NOTE | 2017-02-14 07:07 | Diagnostic Imaging Report ---
Exam: CT examination abdomen pelvis. HISTORY: Abdominal pain Total DLP equals 300 CTDI equals 6.2 Findings: Multiple contiguous thin section of the pelvis obtained from lower thorax to pubic symphysis without the administration of intravenous or oral contrast. Correlated with the prior exam of 01/31/2017 The study demonstrates atelectatic change lung bases bilaterally There is evidence of splenomegaly. There is evidence for cholecystectomy. MRCP might be useful for further delineation of common bile duct. The pancreas is normal. The kidneys demonstrate no evidence of obstructive uropathy or nephrolithiasis. The adrenal glands are intact There is evidence of mild subcutaneous edema status post surgical intervention midline the lower abdomen extending to the right subcutaneous region. Large amount of fecal content is noted in right colon. Urinary bladder distended. Abdominal aorta diffuse calcified. There is no evidence for diverticular process or diverticulitis. Subcutaneous soft tissue granulomas noted in the right buttock most likely status post injection necrosis. IMPRESSION: 1. Status post cholecystectomy 2. Subcutaneous soft tissue inflammatory changes lower mid abdomen to the right 3. Large amount of fecal content 4. Distended urinary bladder.
== END 2017-02-13 20:52 | disposition home or self-care (01) ==
LOC: ER 11:58
DX: K59.00 Constipation, unspecified (principal); K66.0 Peritoneal adhesions (postprocedural) (postinfection)
CPT/HCPCS: 99285; 96374; 96375; 96376; 94760; 93005; 74176; 84484; 83880; 36415; 85025; 85610; 81001; 82150; 82550; 84703; 83690; 80053; 80061; 87081; J2405 ×2; J1170; J7030